=== PATIENT | male | born 1960 | race Two or more races ===

== ENCOUNTER 2020-02-09 11:51 | Emergency (ER) | payer OTHER, SELFPAY ==
[2020-02-09] VITALS (7 sets, daily range): BP systolic 136–192; BP diastolic 55–112; PULSE 66–85; RESP 15–20; TEMP 36.8–38; O2SAT 94–99; BMI 46.3
--- NOTE | 2020-02-09 12:11 | ED.GENADULT ---
HPI - General Adult General Chief complaint: General Medical Stated complaint: flu like symptoms Time Seen by Provider: 02/09/20 12:11 Source: patient Mode of arrival: ambulatory Limitations: no limitations History of Present Illness HPI narrative: patient presents to the ED for flu-like symptoms. Patient states body aches, slight cough, headache, and subjective fever. Patient states yesterday someone at work has similar symptoms and was tested positive for flu. Patient states the co-worker was negative for COVID virus. Patient himself denies any chest pain or shortness of breath. Patient denies any swelling of lower extremity, calf pain, or dizziness. Patient admits to chills and night sweats. Onset (ago): day(s) ( Yesterday) Related Data Previous Rx's Medication Instructions Recorded naproxen 500 mg PO BID PRN #20 tab 02/09/20 Allergies Allergy/AdvReac Type Severity Reaction Status Date / Time statins Allergy Unknown fatigue Uncoded 09/01/19 00:00 Review of Systems Review of Systems: patient admits to body aches, night sweats, subjective fever, chills, and headache. Patient denies any chest pain, shortness of breath, neck stiffness, rash, swelling of lower extremities, abdominal pain, nausea, vomiting, diarrhea, dysuria, hematuria, or flank pain. PMFSH Past Medical History Medical History (Updated 02/09/20 @ 18:50 by TOVA Baugh) Cholecystectomy planned HTN (hypertension) Surgical History (Updated 02/09/20 @ 12:31 by Alfreda Macias) Hx of cardiac cath Social History Social History Alcohol intake: never Smoking Status: Former smoker Smoked in Last 30 Days: No Use of substances other than those prescribed or required for medical reasons: No Advance Directives: No Advance Directives Information Provided: No Physical Exam Vital Signs: Vital Signs: Vital Signs Temp Pulse Resp BP Pulse Ox 02/09/20 18:00 98.3 F 66 15 136/63 95 02/09/20 16:53 98.8 F 69 16 139/55 L 95 02/09/20 16:10 99.5 F 70 20 160/58 H 96 02/09/20 15:15 78 163/63 H 02/09/20 15:10 100.4 F 78 19 163/63 H 99 02/09/20 13:29 99.8 F 81 18 192/87 H 94 02/09/20 12:27 100.0 F 85 20 152/112 H 95 Body Mass Index 46.3 Const: General: cooperative, healthy appearing, comfortable, no acute distress and well developed Orientation/consciousness: oriented to person, oriented to place, oriented to time and patient oriented x3 HENMT: Head: Yes normal to inspection Throat: Yes posterior oropharynx normal, Yes tonsils normal and Yes uvula midline Eyes: General: appearance normal, both eyes and all related structures Neck: Neck: Yes normal visual inspection, Yes full ROM, Yes no lymphadenopathy, Yes no meningeal signs, No lymphadenopathy, No positive Brudzinski's sign and No positive Kernig's sign Chest: Chest palpation & inspection: normal inspection of the chest and normal palpation of entire chest wall Resp: Effort & Inspection: normal respiratory effort, no audible wheezes and no cough Auscultation: clear to auscultation bilaterally, no crackles, no rales, no rhonchi and no wheezes Cardio: Jugular venous distension: no JVD Heart sounds: S1 normal heart sound present and S2 normal heart sound present GI: Inspection: Yes normal to inspection Palpation (GI): Soft to palpation, not firm, nontender, no guarding, not rigid and hepatosplenomegaly present Auscultation: normal bowel sounds Skin: General skin exam: no rashes or lesions noted Neuro: General: oriented to person, oriented to place, oriented to time, patient oriented x3, gait normal, no meningeal signs and CN's II-XI intact bilaterally Cranial nerves: Yes CN's II-XII intact bilaterally Extrem: Other: Lower extremities negative for any swelling, pitting edema, or calf tenderness. Course Course Course Narrative: history and physical exam indicate viral syndrome. Patient not in any distress. Patient will be swabbed for the flu virus and COVID-19. Patient also will have chest x-ray to check for pneumonia. Patient is hypertensive most likely due to body aches, will give pain medication and reassess blood pressure. Presently no labs indicated. Reevaluation(s) Reevaluation #1: Patient is still hypertensive with systolic of 204 on monitor. Due to this patient will have lab work and medication to control blood pressure. Patient will have to be ruled out for hypertensive emergency. Time: 13:55 Reevaluation #2: Will send for Head CT Time: 14:23 Reevaluation #3: patient feels better. Troponin did not increased by 50%. Patient is not in hypertensive emergency. Patient will be given days off. Patient educated on self-isolation from COVID-19 virus. Patient blood pressure improved. recent influenza swab negative chest x-ray negative for pneumonia. head CT is normal Time: 18:47 Medical Decision Making MDM Narrative Medical decision making narrative: viral syndrome. COVID swab negative. hypertension) Lab Data Result diagrams: 02/09/20 14:32 02/09/20 14:32 Labs: Lab Results 02/09/20 02/09/20 02/09/20 Range/Units 13:34 14:32 14:32 WBC 5.7 (4.8-10.8) X10*3/uL RBC 4.40 L (4.60-5.80) X10*6/uL Hgb 12.8 L (14.0-18.0) g/dl Hct 39.3 L (42-52) % MCV 89.3 (80-98) fL MCH 29.1 (27.0-33.0) pg MCHC 32.6 (31.0-36.0) g/dl RDW 13.5 (11.0-16.0) % Plt Count 214 (160-400) X10*3/uL MPV 9.7 (9.4-12.4) fL Immature Gran % (Auto) 0.7 H (0.0-0.4) % Neut % (Auto) 70.3 (45-73) % Lymph % (Auto) 12.7 L (20-40) % Sutter % (Auto) 15.2 H (2-11) % Eos % (Auto) 0.9 (0-4) % Baso % (Auto) 0.2 (0-2) % Lymph # (Auto) 0.7 L (1.2-4.9) X10*3/uL Sutter # (Auto) 0.9 (0.1-1.2) X10*3/uL Eos # (Auto) 0.1 (0.0-0.4) X10*3/uL Baso # (Auto) 0.0 (0.0-0.2) X10*3/uL Abs Immat Gran (auto) 0.04 H (0.00-0.03) X10*3/uL Absolute Neuts (auto) 4.0 (2.0-8.3) X10*3/uL Absolute Nucleated RBC 0.000 (0.0-0.012) X10*3/uL Nucleated RBC % (auto) 0.0 (0.0-0.2) /100WBC PT 13.3 H (10.8-13.0) SEC INR 1.1 (0.9-1.1) APTT 34.8 (24.1-38.0) SEC Sodium (135-145) mmol/L Potassium (3.3-5.1) mmol/l Chloride (96-108) mmol/L Carbon Dioxide (22-29) mmol/L Anion Gap (12-20) BUN (9-16) mg/dL Creatinine (0.5-1.4) mg/dL Estim Creat Clear Calc Estimated GFR Random Glucose (60-115) mg/dL Calcium (8.4-10.2) mg/dL Total Bilirubin (0.0-1.0) mg/dL AST (5-37) U/L ALT (0-40) U/L Alkaline Phosphatase (39-117) U/L Troponin I High Sens (<3.5-35.0) ng/L Total Protein (6.5-8.0) g/dL Albumin (3.5-5.0) g/dL Influenza Type A (PCR) NEGATIVE (Negative) Influenza Type B (PCR) NEGATIVE (Negative) Influenza A & B Note See Note RSV RNA Qual (PCR) NEGATIVE (Negative) 02/09/20 02/09/20 02/09/20 Range/Units 14:32 14:32 16:51 WBC (4.8-10.8) X10*3/uL RBC (4.60-5.80) X10*6/uL Hgb (14.0-18.0) g/dl Hct (42-52) % MCV (80-98) fL MCH (27.0-33.0) pg MCHC (31.0-36.0) g/dl RDW (11.0-16.0) % Plt Count (160-400) X10*3/uL MPV (9.4-12.4) fL Immature Gran % (Auto) (0.0-0.4) % Neut % (Auto) (45-73) % Lymph % (Auto) (20-40) % Sutter % (Auto) (2-11) % Eos % (Auto) (0-4) % Baso % (Auto) (0-2) % Lymph # (Auto) (1.2-4.9) X10*3/uL Sutter # (Auto) (0.1-1.2) X10*3/uL Eos # (Auto) (0.0-0.4) X10*3/uL Baso # (Auto) (0.0-0.2) X10*3/uL Abs Immat Gran (auto) (0.00-0.03) X10*3/uL Absolute Neuts (auto) (2.0-8.3) X10*3/uL Absolute Nucleated RBC (0.0-0.012) X10*3/uL Nucleated RBC % (auto) (0.0-0.2) /100WBC PT (10.8-13.0) SEC INR (0.9-1.1) APTT (24.1-38.0) SEC Sodium 143 (135-145) mmol/L Potassium 3.8 (3.3-5.1) mmol/l Chloride 102 (96-108) mmol/L Carbon Dioxide 32 H (22-29) mmol/L Anion Gap 13 (12-20) BUN 8 L (9-16) mg/dL Creatinine 0.80 (0.5-1.4) mg/dL Estim Creat Clear Calc 118.8 Estimated GFR > 60 Random Glucose 90 (60-115) mg/dL Calcium 9.1 (8.4-10.2) mg/dL Total Bilirubin 0.5 (0.0-1.0) mg/dL AST 30 (5-37) U/L ALT 28 (0-40) U/L Alkaline Phosphatase 63 (39-117) U/L Troponin I High Sens 11.6 12.8 (<3.5-35.0) ng/L Total Protein 7.2 (6.5-8.0) g/dL Albumin 4.3 (3.5-5.0) g/dL Influenza Type A (PCR) (Negative) Influenza Type B (PCR) (Negative) Influenza A & B Note RSV RNA Qual (PCR) (Negative) ECG Data Interpretation: normal sinus rhythm. Ventricular rate 74. OK interval 166. No STEMI Discharge Plan Discharge Clinical Impression: Acute viral syndrome Patient Disposition: Home, Self-Care Instructions: Viral Syndrome (ED) Additional Instructions: return to the ED for any chest pain, shortness of breath, weakness, headache, dizziness, slurred speech, paralysis of extremities, intractable fever/ chills, or any other concerning symptoms. Please follow-up with PCP. recommend 14 days self-isolation if Covid swab is positive Prescriptions: New naproxen 500 mg tablet 500 mg PO BID PRN (Reason: pain) Qty: 20 RF: 0 Stand Alone Forms: Work/School Release Interventions: ED Discharge Assessment Last Done: 02/09/20 19:11 Discharge Date/Time: 02/09/20 19:25
--- NOTE | 2020-02-09 13:00 | XR_ITS ---
EXAMINATION: XR CHEST CLINICAL INFORMATION: Flulike symptoms. Possible pneumonia COMPARISON: Chest radiographs 02/03/2019 TECHNIQUE: Portable upright AP view of the chest was obtained. FINDINGS: There is enlarged cardiopericardial silhouette similar to prior study 02/03/2019. The vascularity is normal. There is no lobar or segmental airspace consolidation or definite groundglass opacity. No effusion. The hilar and mediastinal contours are unremarkable. No acute bony abnormality. There is probable intravascular stent overlying right axilla. Calcification left axillary node again seen. IMPRESSION: No acute intrathoracic disease.
[2020-02-09] MEDS: Ketorolac Tromethamine 30 MG/ML VIAL IM (13:33)
--- NOTE | 2020-02-09 13:50 | ECG_ITS ---
Test Reason : GENERAL Blood Pressure : / mmHG Vent. Rate : 074 BPM Atrial Rate : 074 BPM P-R Int : 166 ms QRS Dur : 102 ms QT Int : 384 ms P-R-T Axes : 052 063 063 degrees QTc Int : 426 ms Normal sinus rhythm Normal ECG When compared with ECG of 16-SEP-2017 22:06, No significant change was found Referred By: Magdy Rodríguez Electronically Signed By:PHILLIP TANG MD
[2020-02-09 14:14] LABS: Influenza A PCR NEGATIVE (Negative); Influenza B PCR NEGATIVE (Negative)
[2020-02-09 14:16] LABS: Resp Syncy Virus RNA Qual PCR NEGATIVE (Negative)
--- NOTE | 2020-02-09 14:23 | CT_ITS ---
EXAMINATION: CT HEAD WITHOUT CONTRAST CLINICAL INFORMATION: Hypertension COMPARISON: None TECHNIQUE: Contiguous axial imaging was performed from the skull base to vertex without intravenous administration of contrast. This CT examination was performed using dose optimization techniques as appropriate, variously including the following: *Automated exposure control *Adjustment of mA and/or kV according to patient size (this includes techniques or standardized protocols for targeted exams where dose is matched to indication/reason for exam; i.e. extremities or head) *Use of iterative reconstruction technique DLP: 769 mGy-cm FINDINGS: There is no evidence of acute intracranial hemorrhage or territorial infarction. No abnormal mass effect or midline shift is seen. Robles to white matter differentiation is well preserved. No extra-axial fluid collections are identified. The ventricles are normal in size. There is no abnormal attenuation within the brain parenchyma. The osseous structures and soft tissues are normal. There is a small polyp or cyst in the sphenoid sinus. The mastoid air cells and visualized portions of the paranasal sinuses are otherwise clear. IMPRESSION: Unremarkable exam.
[2020-02-09 14:39] LABS: MANUAL DIFF FLAG NO
[2020-02-09 14:45] LABS: Basophils Percent Auto 0.2 % (0-2); Eosinophils Absolute Auto 0.1 X10*3/uL (0.0-0.4); Eosinophils Percent Auto 0.9 % (0-4); Hematocrit 39.3 % (42-52); Hemoglobin 12.8 g/dl (14.0-18.0); Imm Gran Abs Auto 0.04 X10*3/uL (0.00-0.03); Imm Gran Pct Auto 0.7 % (0.0-0.4); Lymphocytes Absolute Auto 0.7 X10*3/uL (1.2-4.9); Lymphocytes Percent Auto 12.7 % (20-40); Mean Corpuscular HGB Conc 32.6 g/dl (31.0-36.0); Mean Corpuscular Hemoglobin 29.1 pg (27.0-33.0); Mean Corpuscular Volume 89.3 fL (80-98); Mean Platelet Volume 9.7 fL (9.4-12.4); Monocytes Absolute Auto 0.9 X10*3/uL (0.1-1.2); Monocytes Percent Auto 15.2 % (2-11); Neutrophils Percent Auto 70.3 % (45-73); Platelet Count 214 X10*3/uL (160-400); Red Cell Distribution Width 13.5 % (11.0-16.0); White Blood Count 5.7 X10*3/uL (4.8-10.8)
[2020-02-09 15:06] LABS: INTERNATIONAL NORM RATIO 1.1 (0.9-1.1); Prothrombin Time 13.3 SEC (10.8-13.0)
[2020-02-09 15:08] LABS: Partial Thromboplastin Time 34.8 SEC (24.1-38.0)
[2020-02-09 15:13] LABS: Alanine Aminotransferase 28 U/L (0-40); Albumin Level 4.3 g/dL (3.5-5.0); Alkaline Phosphatase 63 U/L (39-117); Anion Gap 13 (12-20); Aspartate Amino Transferase 30 U/L (5-37); Bilirubin Total 0.5 mg/dL (0.0-1.0); Blood Urea Nitrogen 8 mg/dL (9-16); Calcium 9.1 mg/dL (8.4-10.2); Carbon Dioxide 32 mmol/L (22-29); Chloride 102 mmol/L (96-108); Creatinine Clr Calc Pharmacy 118.8; Estimated Glomerular Filt Rate > 60; Glucose Random 90 mg/dL (60-115); Potassium 3.8 mmol/l (3.3-5.1); Sodium 143 mmol/L (135-145); Total Protein 7.2 g/dL (6.5-8.0)
[2020-02-09] MEDS: Acetaminophen 325 MG TABLET 650 MG PO (15:15)
[2020-02-09] MEDS: cloNIDine HCL 0.2 MG TABLET PO (15:15)
[2020-02-09 15:20] LABS: Troponin-I High Sensitivity 11.6 ng/L (<3.5-35.0)
--- NOTE | 2020-02-09 15:24 | PC.NURSE ---
Taken for CT
[2020-02-09 17:34] LABS: Troponin-I High Sensitivity 12.8 ng/L (<3.5-35.0)
== END 2020-02-09 19:25 | disposition home or self-care (01) ==
PROVIDERS: Physician Assistant; Emergency Provider Emergency Medicine
DX: B34.9 Viral infection, unspecified (principal); Z20.828 Contact with and (suspected) exposure to other viral communicable diseases; R50.9 Fever, unspecified; I10 Essential (primary) hypertension
CPT/HCPCS: 36415; 70450; 71045; 80053; 84484; 85025; 85610; 85730; 87631; 87635; 93005; 96372; 99284; J1885

== ENCOUNTER 2020-02-23 10:14 | Outpatient (REF) | payer OTHER, SELFPAY | END 2020-02-23 10:15 | disposition home or self-care (01) | LOC: HO.LAB 10:14 | PROVIDERS: Visit Provider Internal Medicine | DX: Z20.828 Contact with and (suspected) exposure to other viral communicable diseases (principal) | CPT/HCPCS: U0003 ==

== ENCOUNTER 2020-03-15 09:41 | Outpatient (REF) | payer OTHER, SELFPAY | END 2020-03-15 09:42 | disposition home or self-care (01) | LOC: HO.LAB 09:41 | PROVIDERS: Visit Provider Internal Medicine | DX: Z20.828 Contact with and (suspected) exposure to other viral communicable diseases (principal) | CPT/HCPCS: C9803; U0003 ==

== ENCOUNTER 2020-03-29 08:15 | Outpatient (REF) | payer OTHER, SELFPAY ==
[2020-03-29 08:39] LABS: MANUAL DIFF FLAG NO
[2020-03-29 08:44] LABS: Basophils Percent Auto 0.6 % (0-2); Eosinophils Absolute Auto 0.3 X10*3/uL (0.0-0.4); Eosinophils Percent Auto 5.9 % (0-4); Hematocrit 39.3 % (42-52); Hemoglobin 12.8 g/dl (14.0-18.0); Imm Gran Abs Auto 0.01 X10*3/uL (0.00-0.03); Imm Gran Pct Auto 0.2 % (0.0-0.4); Lymphocytes Absolute Auto 1.8 X10*3/uL (1.2-4.9); Lymphocytes Percent Auto 34.7 % (20-40); Mean Corpuscular HGB Conc 32.6 g/dl (31.0-36.0); Mean Corpuscular Hemoglobin 28.6 pg (27.0-33.0); Mean Corpuscular Volume 87.9 fL (80-98); Mean Platelet Volume 9.8 fL (9.4-12.4); Monocytes Absolute Auto 0.5 X10*3/uL (0.1-1.2); Monocytes Percent Auto 9.4 % (2-11); Neutrophils Absolute Auto 2.5 X10*3/uL (2.0-8.3); Neutrophils Percent Auto 49.2 % (45-73); Platelet Count 246 X10*3/uL (160-400); Red Blood Count 4.47 X10*6/uL (4.60-5.80); Red Cell Distribution Width 13.9 % (11.0-16.0); White Blood Count 5.1 X10*3/uL (4.8-10.8)
[2020-03-29 09:19] LABS: Anion Gap 13 (12-20); Blood Urea Nitrogen 18 mg/dL (9-16); Carbon Dioxide 32 mmol/L (22-29); Chloride 101 mmol/L (96-108); Cholesterol 204 mg/dL; Estimated Glomerular Filt Rate > 60; Glucose Random 106 mg/dL (60-115); HDL Cholesterol 56 mg/dL; LDL Cholesterol Calculated 126 mg/dl; Potassium 3.5 mmol/l (3.3-5.1); Sodium 142 mmol/L (135-145); Triglycerides 110 mg/dL
[2020-03-29 11:40] LABS: Reflex LDLD? No
== END 2020-03-29 08:16 | disposition home or self-care (01) ==
LOC: HO.LAB 08:15
PROVIDERS: PCP Nurse Practitioner Family; Visit Provider Nurse Practitioner Family
DX: I10 Essential (primary) hypertension (principal)
CPT/HCPCS: 36415; 80048; 80061; 85025

== ENCOUNTER 2020-03-31 11:38 | Outpatient (REF) | payer OTHER, SELFPAY ==
--- NOTE | 2020-03-31 11:48 | XR_ITS ---
EXAMINATION: XR SHOULDER, LEFT CLINICAL INFORMATION: Left shoulder pain COMPARISON: CXR from 02/03/2019 and 02/09/2020 TECHNIQUE: AP external rotation, Grashey, scapular Y, and axillary views of the left shoulder. FINDINGS: Moderate osteoarthritis of the acromioclavicular joint. Bones have normal alignment at the shoulder. The humeral head is well-positioned over the intact glenoid. The glenohumeral joint space is well-preserved. No evidence of calcific tendinopathy at the shoulder. There is an old calcification (possibly calcified lymph node) of the left axilla. The visualized left upper lung is normal. XR/XR shoulder LT min 2V IMPRESSION: * Moderate osteoarthritis of the acromioclavicular joint. * The glenohumeral joint has a normal appearance. No acute abnormality. No fracture or malalignment.
== END 2020-03-31 11:39 | disposition home or self-care (01) ==
LOC: HO.XRAY 11:38
PROVIDERS: PCP Nurse Practitioner Family; Visit Provider Nurse Practitioner Family
DX: M25.512 Pain in left shoulder (principal)
CPT/HCPCS: 73030

== ENCOUNTER → 2020-05-19 08:53 | Outpatient (BNVA) | payer OTHER, SELFPAY | PROVIDERS: PCP Nurse Practitioner Family; Visit Provider Internal Medicine | DX: I10 Essential (primary) hypertension (principal); I77.1 Stricture of artery | CPT/HCPCS: 99212 ==

== ENCOUNTER → 2020-06-03 07:22 | Outpatient (REF) | payer OTHER, SELFPAY ==
--- NOTE | 2020-06-03 07:29 | CA_ITS ---
Transthoracic Echocardiogram Patient (Last, First, Middle): Uriel Elias A Gender: Male Date of : 1960 Age: 59 Procedure Date: 06/03/2020 Procedure Type: Transthoracic Echocardiogram Location: OP Height: 162.56 cm Weight: 125.19 kg BSA: 2.24 m2 Heart Rate: bpm BP: 160 / 64 mmHg Painter Ordnance: ARELI Referring MD: Omero Cruz MD Porter Baggage: Eren Paez MD Symptoms: HTN ASHD Study Quality: Technically Difficult ECG Rhythm: Sinus Conclusions: - 1. Normal LV systolic function with moderate LVH with impaired relaxation filling pattern 2. Mildly dilated left atrium 3. Normal cardiac valvular Doppler 4. No gross pericardial effusion Findings Left Ventricle Normal left ventricular size and systolic function. There is moderately increased left ventricular wall thickness. The visually estimated ejection fraction is between 60-65%. Regional wall motion abnormalities can not be excluded due to suboptimal endocardial definition. Spectral Doppler is indicative of an impaired relaxation filling pattern. E/E prime ratio is between 8 and 15 consistent with indeterminate filling pressures. Right Ventricle The right ventricle was not well visualized. Atria The left atrium is mildly dilated. Interatrial shunt cannot be excluded. The right atrium was not well visualized. Aortic Valve The aortic valve was not well visualized. There is no aortic valve stenosis. There is no aortic valve regurgitation. Mitral Valve Likely normal mitral valve structure and function. There is trace mitral valve regurgitation. There is no mitral valve stenosis. Pulmonic Valve The pulmonic valve was not well visualized. Tricuspid Valve The tricuspid valve was not well visualized. Tricuspid regurgitation envelope is inadequate for calculation of right ventricular systolic pressure. Great Vessels The aorta was not well visualized. The pulmonary artery was not well visualized. Venous The inferior vena cava is normal in size and collapses greater than 50% with inspiration. Pericardium/Pleural There is no evidence of pericardial effusion. Prior Study Comparison Changes noted compared to prior study dated: 04/20/2019. LVH is more pronounced Measurements M-Mode Liner Measurements Normals - Women/Men AOV Cusps: 2.20 1.5-2.6 cm/m2 2D Linear Measurements IVSd: 1.67 0.6-0.9/0.6-1.0 cm LVIDd: 4.42 3.9-5.3/4.2-5.9 cm LVIDd Index: 1.97 2.4-3.2/2.2-3.1 cm/m2 LVIDs: 2.52 2.0-3.6 cm LVPWd: 1.47 0.7-1.1 cm Ao Root: 3.10 2.1-3.5 cm LA Diam: 4.00 2.7-3.8/3.0-4.0 cm LAIDs Index: 1.79 1.5-2.3 cm/m2 LV Mass: 359.56 67-162/88-224 g LV Mass Index: 160.52 43-95/49-115 g/m2 LVOT Diam: 2.00 3.0+(-)1.3 cm 2D Systolic Function EF 4C: 64.10 >55% EF 2C: 57.30 >55% EF BiP: 62.00 >55% Mitral Valve MV Pk E: 0.78 MV PK A: 0.80 MV Decel Time: 275.00 E/A: 1.00 E'Lateral: 7.83 E'Medial: 6.53 E/E' Med: 12.00 E/E' Lat: 10.00 PHT: 80.00 MVA PHT: 2.75 Decel Dyer: 2.84 Aortic Valve AoV Pk Peterson: 1.24 AoV Pk Grad: 6.00 LVOT LVOT Pk Peterson: 0.90 LVOT Mn Peterson: 0.67 LVOT VTI: 0.21 LVOT Pk Grad: 3.00 LVOT Mn Grad: 2.00 LVOT Diam: 2.00 LVOT Area: 3.14 Diastolic Function MV Pk E: 0.78 MV Pk A: 0.80 E/A: 1.00 E'Medial: 6.53 E/E' Med: 12.00 E' Laterial: 7.83 E/E' Lat: 10.00 Great Vessels Aorta Ao Root-2D: 3.10 2.0-3.7 cm Ao Asc: 2.70 2.1-3.4 cm Ao Arch: 2.50 Pulmonary Valve PV Pk Peterson: 1.15 Peak PV Grad: 5.00 Updated in Other Vendor System with Status of Final Eren Paez MD electronically signed on 06/03/2020 4:54:17 PM with status of Final
[2020-06-03 09:02] LABS: Anion Gap 12 (12-20); Blood Urea Nitrogen 14 mg/dL (9-16); Calcium 8.6 mg/dL (8.4-10.2); Carbon Dioxide 30 mmol/L (22-29); Chloride 107 mmol/L (96-108); Estimated Glomerular Filt Rate > 60; Glucose Random 111 mg/dL (60-115); Potassium 3.6 mmol/L (3.3-5.1); Sodium 145 mmol/L (135-145)
== END ==
LOC: HO.CARD 07:22
PROVIDERS: PCP Internal Medicine; Visit Provider Internal Medicine
DX: I25.10 Atherosclerotic heart disease of native coronary artery without angina pectoris (principal); I10 Essential (primary) hypertension
CPT/HCPCS: 36415; 80048; 93306

== ENCOUNTER → 2020-06-07 08:41 | Outpatient (BNVA) | payer OTHER, SELFPAY | PROVIDERS: PCP Nurse Practitioner Family; Visit Provider Internal Medicine | DX: I51.7 Cardiomegaly (principal); I77.1 Stricture of artery; I10 Essential (primary) hypertension | CPT/HCPCS: 99212 ==

== ENCOUNTER 2021-01-19 09:28 | Outpatient (REF) | payer OTHER, SELFPAY ==
--- NOTE | ~2021-01-19 | XR_ITS ---
EXAMINATION: XR KNEE, BILATERAL XR CERVICAL SPINE CLINICAL INDICATION: Pain. COMPARISON: No films to compare. TECHNIQUE: 3 views right knee. 3 views left knee. 4 views cervical spine. RIGHT KNEE: 3 views of the right knee show moderate to marked degenerative changes. Significant loss of medial joint space with spurring at the joint margins. Patellofemoral spurring and spurring at the insertion of the quadriceps. Likely areas of healed osteochondral injury at the articulation of the femur with the tibia. The patella is slightly lateralized. There is no acute effusion seen. LEFT KNEE: 3 views of the left knee again show moderate to marked degenerative changes. Significant near-total joint space loss medially. Patellofemoral spurring and spurring at the insertion of the quadriceps. No significant effusion is seen. The patella is fairly well seated on the sunrise image. CERVICAL SPINE: 4 views of the cervical spine submitted. Suboptimal images. The lower cervical spine is not adequately imaged on the lateral study. There is degeneration here. There is fusion at C3 and C4 which is likely congenital. Degenerative changes with loss of disc height and osteophytic lipping at multiple levels. No convincing evidence for an acute compression injury. Likely degeneration in the articulating facets most noted at C2-C3. Likely degenerative change in the lower cervical regions with spurring in the endplates and loss of disc height. XR/XR knee LT 3V IMPRESSION: Moderate to marked degenerative changes within the knees. Described above. Moderate degeneration of the cervical spine. 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 Limited evaluation as described. If further evaluation is warranted recommendation is MRI.
--- NOTE | ~2021-01-19 | XR_ITS ---
EXAMINATION: XR KNEE, BILATERAL XR CERVICAL SPINE CLINICAL INDICATION: Pain. COMPARISON: No films to compare. TECHNIQUE: 3 views right knee. 3 views left knee. 4 views cervical spine. RIGHT KNEE: 3 views of the right knee show moderate to marked degenerative changes. Significant loss of medial joint space with spurring at the joint margins. Patellofemoral spurring and spurring at the insertion of the quadriceps. Likely areas of healed osteochondral injury at the articulation of the femur with the tibia. The patella is slightly lateralized. There is no acute effusion seen. LEFT KNEE: 3 views of the left knee again show moderate to marked degenerative changes. Significant near-total joint space loss medially. Patellofemoral spurring and spurring at the insertion of the quadriceps. No significant effusion is seen. The patella is fairly well seated on the sunrise image. CERVICAL SPINE: 4 views of the cervical spine submitted. Suboptimal images. The lower cervical spine is not adequately imaged on the lateral study. There is degeneration here. There is fusion at C3 and C4 which is likely congenital. Degenerative changes with loss of disc height and osteophytic lipping at multiple levels. No convincing evidence for an acute compression injury. Likely degeneration in the articulating facets most noted at C2-C3. Likely degenerative change in the lower cervical regions with spurring in the endplates and loss of disc height. XR/XR cervical spine 3V IMPRESSION: Moderate to marked degenerative changes within the knees. Described above. Moderate degeneration of the cervical spine. 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 Limited evaluation as described. If further evaluation is warranted recommendation is MRI.
--- NOTE | ~2021-01-19 | XR_ITS ---
EXAMINATION: XR LUMBOSACRAL SPINE CLINICAL INFORMATION: Low back pain COMPARISON: Previous x-ray August 2019 TECHNIQUE: Three views of the lumbosacral spine. FINDINGS: Bone alignment is normal. No fracture or dislocation is seen. There is multilevel degenerative disc disease. There is lower lumbar spine facet arthritis. There is arthritis at the sacroiliac joints. There is evidence of atherosclerotic disease. There are several calcifications projecting over the left kidney suggestive of stones. Largest measures 3 x 6 mm in the lower pole of the left kidney. XR/XR lumbar spine 2-3V IMPRESSION: Multilevel degenerative disc disease and facet arthritis. Degenerative changes at the sacroiliac joints. Probable left renal stones.
--- NOTE | ~2021-01-19 | XR_ITS ---
EXAMINATION: XR KNEE, BILATERAL XR CERVICAL SPINE CLINICAL INDICATION: Pain. COMPARISON: No films to compare. TECHNIQUE: 3 views right knee. 3 views left knee. 4 views cervical spine. RIGHT KNEE: 3 views of the right knee show moderate to marked degenerative changes. Significant loss of medial joint space with spurring at the joint margins. Patellofemoral spurring and spurring at the insertion of the quadriceps. Likely areas of healed osteochondral injury at the articulation of the femur with the tibia. The patella is slightly lateralized. There is no acute effusion seen. LEFT KNEE: 3 views of the left knee again show moderate to marked degenerative changes. Significant near-total joint space loss medially. Patellofemoral spurring and spurring at the insertion of the quadriceps. No significant effusion is seen. The patella is fairly well seated on the sunrise image. CERVICAL SPINE: 4 views of the cervical spine submitted. Suboptimal images. The lower cervical spine is not adequately imaged on the lateral study. There is degeneration here. There is fusion at C3 and C4 which is likely congenital. Degenerative changes with loss of disc height and osteophytic lipping at multiple levels. No convincing evidence for an acute compression injury. Likely degeneration in the articulating facets most noted at C2-C3. Likely degenerative change in the lower cervical regions with spurring in the endplates and loss of disc height. XR/XR knee RT 3V IMPRESSION: Moderate to marked degenerative changes within the knees. Described above. Moderate degeneration of the cervical spine. 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 Limited evaluation as described. If further evaluation is warranted recommendation is MRI.
[2021-01-19 09:58] LABS: Hematocrit 41.4 % (42-52); Hemoglobin 13.5 g/dl (14.0-18.0); Mean Corpuscular HGB Conc 32.6 g/dl (31.0-36.0); Mean Corpuscular Hemoglobin 28.9 pg (27.0-33.0); Mean Corpuscular Volume 88.7 fL (80-98); Platelet Count 264 X10*3/uL (160-400); Red Blood Count 4.67 X10*6/uL (4.60-5.80); Red Cell Distribution Width 13.4 % (11.0-16.0); White Blood Count 8.3 X10*3/uL (4.8-10.8)
[2021-01-19 10:51] LABS: Alanine Aminotransferase 42 U/L (0-40); Albumin Level 4.3 g/dL (3.5-5.0); Alkaline Phosphatase 64 U/L (39-117); Anion Gap 17 (12-20); Aspartate Amino Transferase 32 U/L (5-37); Bilirubin Total 0.5 mg/dL (0.0-1.0); Blood Urea Nitrogen 14 mg/dL (9-16); Calcium 9.9 mg/dL (8.4-10.2); Carbon Dioxide 29 mmol/L (22-29); Chloride 103 mmol/L (96-108); Cholesterol 237 mg/dL; Estimated Glomerular Filt Rate > 60; Glucose Fasting 126 mg/dL (60-99); HDL Cholesterol 54 mg/dL; LDL Cholesterol Calculated 151 mg/dl; Sodium 145 mmol/L (135-145); Total Protein 7.4 g/dL (6.5-8.0); Triglycerides 161 mg/dL
[2021-01-19 11:13] LABS: TSH reflex Free T4 1.86 uIU/mL (0.32-4.0)
[2021-01-19 12:11] LABS: Microalbum/Creatinine Ratio Ur 167.8 ug/mg cr
== END 2021-01-19 09:29 | disposition home or self-care (01) ==
LOC: HO.XRAY 09:28
PROVIDERS: PCP Physician Assistant; Visit Provider Physician Assistant
DX: M54.2 Cervicalgia (principal); M54.5 Low back pain; G47.33 Obstructive sleep apnea (adult) (pediatric); I10 Essential (primary) hypertension; Z12.5 Encounter for screening for malignant neoplasm of prostate
CPT/HCPCS: 36415; 72040; 72100; 73562; 80053; 80061; 82043; 84153; 84443; 85027

== ENCOUNTER → 2021-01-26 13:35 | Outpatient (BNVA) | payer OTHER, SELFPAY | PROVIDERS: PCP Physician Assistant; Referring Provider Physician Assistant; Visit Provider Physician Assistant Surgical ==

== ENCOUNTER → 2021-02-13 08:11 | Outpatient (BNVA) | payer OTHER, SELFPAY | PROVIDERS: PCP Physician Assistant; Visit Provider Surgery ==

== ENCOUNTER 2021-02-14 10:11 | Outpatient (REF) | payer OTHER, SELFPAY ==
--- NOTE | ~2021-02-14 | XR_ITS ---
EXAMINATION: XR CHEST CLINICAL INFORMATION: E78.00 - Pure hypercholesterolemia, unspecified COMPARISON: Chest radiographs 02/09/2020, 02/03/2019 TECHNIQUE: 2 views of the chest were obtained. FINDINGS: Radiographs are mildly underpenetrated. There is enlarged cardiopericardial silhouette similar to prior study. There is mild fullness of the central vasculature. There is no airspace consolidation or currently lines. No pleural effusion. The costophrenic sulci are clear. The hilar and mediastinal contours are unremarkable. There are multilevel degenerative changes thoracic spine. XR/XR chest 2V IMPRESSION: Chronic enlarged cardiopericardial silhouette. Mild fullness central vasculature. No interstitial edema, infiltrate, or effusion.
--- NOTE | 2021-02-14 10:31 | ECG_ITS ---
Test Reason : hypercholest. Blood Pressure : / mmHG Vent. Rate : 081 BPM Atrial Rate : 081 BPM P-R Int : 172 ms QRS Dur : 082 ms QT Int : 366 ms P-R-T Axes : 062 057 148 degrees QTc Int : 425 ms Normal sinus rhythm T wave abnormality, consider inferolateral ischemia Abnormal ECG When compared with ECG of 09-FEB-2020 15:41, QRS duration has decreased Non-specific change in ST segment in Anterior leads T wave inversion now evident in Inferior leads T wave inversion now evident in Lateral leads Referred By: Jorge Salas Electronically Signed By:PHILLIP TANG MD
[2021-02-14 10:32] LABS: MANUAL DIFF FLAG NO
[2021-02-14 10:45] LABS: Basophils Percent Auto 0.4 % (0-2); Eosinophils Absolute Auto 0.2 X10*3/uL (0.0-0.4); Eosinophils Percent Auto 3.4 % (0-4); Hematocrit 41.7 % (42-52); Hemoglobin 13.7 g/dl (14.0-18.0); Imm Gran Abs Auto 0.03 X10*3/uL (0.00-0.03); Imm Gran Pct Auto 0.6 % (0.0-0.4); Lymphocytes Absolute Auto 1.3 X10*3/uL (1.2-4.9); Lymphocytes Percent Auto 26.6 % (20-40); Mean Corpuscular HGB Conc 32.9 g/dl (31.0-36.0); Mean Corpuscular Hemoglobin 29.6 pg (27.0-33.0); Mean Corpuscular Volume 90.1 fL (80-98); Mean Platelet Volume 9.7 fL (9.4-12.4); Monocytes Absolute Auto 0.3 X10*3/uL (0.1-1.2); Monocytes Percent Auto 6.8 % (2-11); Neutrophils Absolute Auto 3.1 X10*3/uL (2.0-8.3); Neutrophils Percent Auto 62.2 % (45-73); Platelet Count 246 X10*3/uL (160-400); Red Blood Count 4.63 X10*6/uL (4.60-5.80); Red Cell Distribution Width 13.5 % (11.0-16.0)
[2021-02-14 10:59] LABS: Estimated Average Glucose 123 mg/dL; Hemoglobin A1C 152.3407 umol/L; Hemoglobin A1c % 5.9 %
[2021-02-14 11:12] LABS: Alanine Aminotransferase 29 U/L (0-40); Albumin Level 4.3 g/dL (3.5-5.0); Alkaline Phosphatase 58 U/L (39-117); Anion Gap 12 (12-20); Aspartate Amino Transferase 26 U/L (5-37); Bilirubin Total 0.8 mg/dL (0.0-1.0); Blood Urea Nitrogen 12 mg/dL (9-16); Calcium 9.4 mg/dL (8.4-10.2); Carbon Dioxide 34 mmol/L (22-29); Chloride 104 mmol/L (96-108); Cholesterol 232 mg/dL; Estimated Glomerular Filt Rate > 60; Glucose Random 127 mg/dL (60-115); HDL Cholesterol 51 mg/dL; Iron 103 mcg/dL (45-160); LDL Cholesterol Calculated 134 mg/dl; Percent Iron Saturation 27 % (15-50); Potassium 4.2 mmol/L (3.3-5.1); Sodium 146 mmol/L (135-145); Total Iron Binding Capacity 385 mcg/dL (228-428); Total Protein 7.3 g/dL (6.5-8.0); Triglycerides 235 mg/dL; Unsaturated Iron Binding 282 ug/dL
[2021-02-14 11:38] LABS: Ferritin 83 ng/mL (20-250); Insulin 23 uU/mL (2-29); TSH reflex Free T4 1.19 uIU/mL (0.32-4.0); Vitamin D 25-OH Total 14.7 ng/mL (>30)
[2021-02-14 11:44] LABS: Folate 13.3 ng/mL (> or = 4.0); Vitamin B12 354 pg/mL (200-900)
[2021-02-16 01:33] LABS: Calcium (PTHI) 9.4 mg/dL (8.6-10.3); PTHI 103 pg/mL (14-64)
[2021-02-17 16:31] LABS: Zinc 85 mcg/dL (60-130)
[2021-02-18 11:31] LABS: Vitamin B1 12 nmol/L (8-30)
[2021-02-20 12:03] LABS: Vitamin A 66 mcg/dL (38-98)
== END 2021-02-14 10:12 | disposition home or self-care (01) ==
LOC: HO.LAB 10:11
PROVIDERS: PCP Physician Assistant; Visit Provider Surgery
DX: E78.00 Pure hypercholesterolemia, unspecified (principal); E66.01 Morbid (severe) obesity due to excess calories; I10 Essential (primary) hypertension; G47.30 Sleep apnea, unspecified; I51.7 Cardiomegaly; I77.1 Stricture of artery; K21.9 Gastro-esophageal reflux disease without esophagitis
CPT/HCPCS: 36415; 71046; 80053; 80061; 82306; 82607; 82728; 82746; 83036; 83525; 83540; 83970; 84425; 84443; 84590; 84630; 85025; 86140; 93005

== ENCOUNTER 2021-02-15 10:57 | Outpatient (REF) | payer OTHER, SELFPAY ==
[2021-02-17 10:09] LABS: H Pylori Breath Test Negative (Negative)
== END 2021-02-15 10:58 | disposition home or self-care (01) ==
LOC: HO.LNP 10:57
PROVIDERS: Surgery; PCP Physician Assistant; Referring Provider Physician Assistant; Visit Provider Physician Assistant
DX: Z11.0 Encounter for screening for intestinal infectious diseases (principal)
CPT/HCPCS: 83013; 99211

== ENCOUNTER → 2021-02-27 08:06 | Outpatient (BNVA) | payer OTHER, SELFPAY | PROVIDERS: PCP Physician Assistant; Visit Provider Dietitian, Registered | DX: E66.01 Morbid (severe) obesity due to excess calories (principal) | CPT/HCPCS: 97802 ==

== ENCOUNTER → 2021-03-14 07:52 | Outpatient (BNVA) | payer OTHER, SELFPAY | PROVIDERS: PCP Physician Assistant; Referring Provider Physician Assistant; Visit Provider Internal Medicine | DX: I51.7 Cardiomegaly (principal); I77.1 Stricture of artery; I10 Essential (primary) hypertension | CPT/HCPCS: 93005; 99212 ==

== ENCOUNTER → 2021-03-20 14:19 | Outpatient (BNVA) | payer OTHER, SELFPAY | PROVIDERS: PCP Physician Assistant; Visit Provider Surgery ==

== ENCOUNTER 2021-03-21 08:55 | Outpatient (REF) | payer OTHER, SELFPAY ==
--- NOTE | ~2021-03-21 | US_ITS ---
EXAMINATION: US COMPLETE ABDOMEN WITH LIVER ELASTOGRAPHY CLINICAL INFORMATION: Obesity. Hypercholesterolemia. COMPARISON: CT abdomen and pelvis 02/03/2019 TECHNIQUE: Real-time imaging of the abdominal viscera. Noninvasive ultrasound liver fibrosis assessment is performed using Rai ElastPQ point quantification shear wave elastography (pSWE) with a C5-2 MHz transducer. Multiple elastography samples are obtained. FINDINGS: PANCREAS: Normal. The visualized pancreatic head and body are normal in appearance. The remainder of the pancreas is obscured from visualization by the overlying bowel gas. ABDOMINAL AORTA: The proximal, middle, and distal aortic segments are normal in caliber. INFERIOR VENA CAVA: Visualized portions are normal. LIVER: The liver demonstrates normal size and contour with increased echogenicity. No focal lesion or intrahepatic biliary duct dilatation. The right lobe measures 17.0 cm in length. The left lobe measures 13.2 cm in length. Portal flow is hepatopetal. Shear wave liver elastography median stiffness is 1.27 m/s (reference: Normal median stiffness is 1.3 m/s or less). IQR/median stiffness to assess sampling precision is 0.15 (reference: Good quality data set is IQR/median stiffness of 0.15 or less). GALLBLADDER: Normal. The gallbladder is physiologically distended without evidence of stones, sludge, polyps, wall thickening or pericholecystic fluid. COMMON BILE DUCT: Normal in caliber measuring 0.3 cm in diameter. RIGHT KIDNEY: Normal. No hydronephrosis. No renal calculi or focal parenchymal lesions. The kidney measures 12.9 cm in maximum dimension. LEFT KIDNEY: No hydronephrosis. No focal parenchymal lesions. The kidney measures 12.4 cm in maximum dimension.. There are echogenic stones seen. -Midpole stones measures 1.3 x 0.7 x 0.8 cm and 0.8 x 0.5 x 0.8 cm SPLEEN: Normal. The spleen measures 10.6 cm in maximum dimension. FREE FLUID: None. US/US abdomen comp w elastography IMPRESSION: 1. Mild hepatic steatosis without any focal lesion. 2. There are echogenic nonobstructive calculi in the mid pole of the left kidney. Both calculi were seen on the previous CT abdomen and pelvic exam 02/03/2019. 3. Liver Elastography: Median liver stiffness 1.27 m/s suggestive of high probability normal. REFERENCE: Society of Radiologists in Ultrasound Liver Stiffness Thresholds (2020): LIVER STIFFNESS THRESHOLDS: *Liver Stiffness equal or less than 1.3 m/s: High probability of being normal. *Liver Stiffness less than 1.7 m/s: In the absence of other known clinical signs, rules out compensated advanced chronic liver disease. *Liver Stiffness 1.7-2.1 m/s: Suggestive of compensated advanced chronic liver disease but need further test for confirmation. *Liver Stiffness over 2.1 m/s: Rules in compensated advanced chronic liver disease. *Liver Stiffness over 2.4 m/s: Suggestive of clinically significant portal hypertension. QUALITY OF DATA SET: *IQR/Median value equal or less than 0.15 implies a quality data set. *IQR/Median value over 0.15 implies a poor quality data set. SIGNIFICANT CHANGE FROM PRIOR EXAM: Significant change if liver stiffness measurement is 10% or greater from prior exam. OTHER CONSIDERATIONS: The stage of liver fibrosis may be overestimated in the setting of acute hepatitis, liver inflammation, elevated liver function tests, hepatic vascular congestion, obstructive cholestasis, non-fasting state, and infiltrative diseases such as amyloidosis and lymphoma. In some patients with NAFLD, the liver stiffness thresholds for compensated advanced chronic liver disease may be lower. In causes other than viral hepatitis and NAFLD, liver stiffness thresholds are not well established.
== END 2021-03-21 08:56 | disposition home or self-care (01) ==
LOC: HO.US 08:55
PROVIDERS: PCP Physician Assistant; Visit Provider Surgery
DX: E66.01 Morbid (severe) obesity due to excess calories (principal); G47.30 Sleep apnea, unspecified; I10 Essential (primary) hypertension; I51.7 Cardiomegaly; I77.1 Stricture of artery; K21.9 Gastro-esophageal reflux disease without esophagitis; E78.00 Pure hypercholesterolemia, unspecified
CPT/HCPCS: 76705; 76981

== ENCOUNTER 2021-03-22 08:54 | Outpatient (REF) | payer OTHER, SELFPAY ==
--- NOTE | ~2021-03-22 | FL_ITS ---
EXAMINATION: FL UPPER GI SERIES CLINICAL INFORMATION: Bariatric service evaluation. E78.00 - Pure hypercholesterolemia, unspecified COMPARISON: CT abdomen and pelvis 02/03/2019 TECHNIQUE: Upper GI series is performed using fluoroscopic evaluation in addition to multiple fluoroscopic spot views. The patient is imaged both upright and prone and using both thick and thin barium sulfate along with effervescent granules. Fluoroscopy time: 1.2 minutes DAP: 26.8 Gycm2 Fluoroscopic spot images: 20 FINDINGS: There is normal esophageal motility. There is no obstruction, stricture, or ulceration. There is small intermittent sliding hiatal hernia only seen during prone Valsalva maneuver. Borderline hernia also noted on CT 2019. There is gastroesophageal reflux to the level of the proximal thoracic esophagus only seen during the water siphon test. The stomach shows no thickened folds or ulcer crater or outlet obstruction. The duodenal bulb is pliable and without ulcer crater or scarring. The post bulbar duodenum the jejunal mucosal pattern are unremarkable. FL/FL upper GI w air IMPRESSION: 1. Small intermittent sliding hiatal hernia during prone Valsalva maneuver. 2. Gastroesophageal reflux during water siphon test to proximal thoracic esophagus.
== END 2021-03-22 08:55 | disposition home or self-care (01) ==
LOC: HO.XRAY 08:54
PROVIDERS: PCP Physician Assistant; Visit Provider Surgery
DX: E66.9 Obesity, unspecified (principal); E78.00 Pure hypercholesterolemia, unspecified
CPT/HCPCS: 74246

== ENCOUNTER → 2021-03-23 08:03 | Outpatient (BNVA) | payer OTHER, SELFPAY | PROVIDERS: Referring Provider Surgery; Visit Provider Dietitian, Registered ==

== ENCOUNTER → 2021-03-24 08:12 | Outpatient (BNVA) | payer OTHER, SELFPAY | PROVIDERS: PCP Nurse Practitioner Family; Visit Provider Dietitian, Registered | DX: E66.01 Morbid (severe) obesity due to excess calories (principal) | CPT/HCPCS: 97803 ==

== ENCOUNTER → 2021-04-04 08:31 | Outpatient (REF) | payer OTHER, SELFPAY | LOC: HO.CARD 08:31 | PROVIDERS: Visit Provider Surgery | DX: Z13.89 Encounter for screening for other disorder (principal) ==

== ENCOUNTER → 2021-04-18 07:52 | Outpatient (REF) | payer OTHER, SELFPAY ==
--- NOTE | ~2021-04-18 | NM_ITS ---
Myocardial perfusion study Indication: Abnormal EKG with inability to exercise with preoperative cardiovascular risk stratification Technique: The patient was brought in for a Lexiscan perfusion study on 04/18/2021. Patient performed low-level exercise and was injected 0.4 mg of Lexiscan intravenously. Within a minute of injection, 35 mCi of sestamibi was given intravenously. Images were obtained using the SPECT gamma camera interlaced with the gating device. Images were obtained in supine position. Resting perfusion study was performed on 04/19/2021. Patient was administered 35 mCi of sestamibi intravenously at rest. Images were then obtained in supine position. Images obtained with and without CT attenuation. Total DLP 188 mGy-cm. Images were processed with the software and compared side to side in short axis, horizontal long axis and vertical long axis views. Findings: The stress perfusion study showed non attenuated images show mildly reduced uptake in the basal inferior as well as mildly reduced uptake in the apex as well as the basal lateral wall of the LV myocardium. Remainder of the LV myocardium is normally perfused. Attenuation corrected images show mildly reduced uptake in the apex of the LV myocardium.. The gated study shows normal LV systolic function with visually estimated LVEF of greater than 55%. LV cavity is mildly dilated size. The gated study shows normal wall thickening and contraction of segments. Resting study shows improved uptake in the apex on both attenuated as well as non attenuated corrected images. Gating at rest reveals normal systolic wall motion with visually estimated ejection fraction at greater than 55%. The findings are consistent with small area of mild intensity apical ischemia. NM/NM rhonda perf SPECT rest & str Impression: 1. Myocardial perfusion imaging study shows mild intensity apical ischemia 2. Gated LVEF is greater than 55% 3. Transient ischemic dilatation present EKG is nondiagnostic for ischemia
--- NOTE | 2021-04-18 07:57 | CA_ITS ---
Acquisition Time: 2021-04-18 08:37:01 Total Exercise Time: 00:02:00 Test Indications: HYPERLIPIDEMIA, HTN Medications: SEE CHART Protocol: LEXISCAN Max HR: 090 BPM 56% of Pred: 160 BPM Max BP: 146/074 mmHG Max Work Load: 1.6 METS Pharmacological stress test with Lexiscan injection, while walking on treadmill, without anginal symptoms, without arrythmia, with normotensive response to injection, with nondiagnostic EKG for ischemia. Nuclear images pending. Test reviewed with Dr Abreu. Referred By: Jorge Salas Overread By: SELVIN PATE
== END ==
LOC: HO.CARD 07:52
PROVIDERS: Visit Provider Surgery
DX: R94.31 Abnormal electrocardiogram [ECG] [EKG] (principal); I25.9 Chronic ischemic heart disease, unspecified; E66.01 Morbid (severe) obesity due to excess calories; Z68.42 Body mass index [BMI] 45.0-49.9, adult
CPT/HCPCS: 78452; 93017; A9500; J0280; J2785

== ENCOUNTER → 2021-05-12 08:02 | Outpatient (BNVA) | payer OTHER, SELFPAY | PROVIDERS: PCP Nurse Practitioner Family; Visit Provider Surgery | DX: E66.01 Morbid (severe) obesity due to excess calories (principal) ==

== ENCOUNTER → 2021-05-29 08:14 | Outpatient (BNVA) | payer OTHER, SELFPAY | PROVIDERS: PCP Nurse Practitioner Family; Visit Provider Surgery ==

== ENCOUNTER → 2021-06-01 08:19 | Outpatient (BNVA) | payer OTHER, SELFPAY | PROVIDERS: PCP Nurse Practitioner Family; Referring Provider Physician Assistant; Visit Provider Surgery ==

== ENCOUNTER 2021-06-06 06:13 | Inpatient (IN) | payer OTHER, SELFPAY ==
[2021-05-29 15:30] VITALS: BMI 42.6
[2021-05-30 09:49] LABS: MANUAL DIFF FLAG NO
[2021-05-30 10:21] LABS: Basophils Percent Auto 0.2 % (0-2); Eosinophils Absolute Auto 0.1 X10*3/uL (0.0-0.4); Eosinophils Percent Auto 2.2 % (0-4); Hematocrit 39.8 % (42.0-52.0); Hemoglobin 13.5 g/dl (14.0-18.0); Imm Gran Abs Auto 0.01 X10*3/uL (0.00-0.03); Imm Gran Pct Auto 0.2 % (0.0-0.4); Lymphocytes Absolute Auto 1.2 X10*3/uL (1.2-4.9); Mean Corpuscular HGB Conc 33.9 g/dl (31.0-36.0); Mean Corpuscular Hemoglobin 29.5 pg (27.0-33.0); Mean Corpuscular Volume 86.9 fL (80.0-98.0); Mean Platelet Volume 10.7 fL (9.4-12.4); Monocytes Absolute Auto 0.3 X10*3/uL (0.1-1.2); Monocytes Percent Auto 6.1 % (2-11); Neutrophils Absolute Auto 3.3 x10*3/uL (2.0-8.3); Neutrophils Percent Auto 67.3 % (45-73); Platelet Count 227 X10*3/uL (160-400); Red Blood Count 4.58 X10*6/uL (4.60-5.80); Red Cell Distribution Width 13.2 % (11.0-16.0); White Blood Count 4.9 X10*3/uL (4.8-10.8)
[2021-05-30 10:31] LABS: INTERNATIONAL NORM RATIO 1.1 (0.9-1.1); Prothrombin Time 12.8 SEC (9.9-13.0)
[2021-05-30 10:34] LABS: Partial Thromboplastin Time 37.2 SEC (24.1-38.0)
[2021-05-30 10:47] LABS: Alanine Aminotransferase 18 U/L (0-40); Alkaline Phosphatase 60 U/L (39-117); Anion Gap 11 (12-20); Aspartate Amino Transferase 18 U/L (5-37); Blood Urea Nitrogen 15 mg/dL (9-16); Calcium 9.3 mg/dL (8.4-10.2); Carbon Dioxide 31 mmol/L (22-29); Chloride 105 mmol/L (96-108); Cholesterol 195 mg/dL; Creatinine Clr Calc Pharmacy 113.3; Estimated Glomerular Filt Rate > 60; Glucose Random 91 mg/dL (60-115); HDL Cholesterol 40 mg/dL; LDL Cholesterol Calculated 134 mg/dl; Potassium 4.2 mmol/L (3.3-5.1); Sodium 143 mmol/L (135-145); Total Protein 6.9 g/dL (6.5-8.0); Triglycerides 109 mg/dL
[2021-05-30 10:50] LABS: Estimated Average Glucose 100 mg/dL; Hemoglobin A1C 117.3587 umol/L; Hemoglobin A1c % 5.1 %
[2021-05-30 11:12] LABS: Insulin 9 uU/mL (2-29)
--- NOTE | 2021-06-02 23:18 | MHC.SHP ---
Pre-Procedural Eval Section A Date of Service: 06/02/21 The patient is an INPATIENT: Yes The History & Physical has been completed within 30 days and I have reviewed it.: Yes Section B Chief Complaint: obesity Relevant Family History (Specify if Yes): No Relevant Social History: None Present Medications: None Medical History: No relevant PMH History of Previous Operations: No relevant previous surgery Allergies: Allergies Allergy/AdvReac Type Severity Reaction Status Date / Time No Known Allergies Allergy Verified 05/31/21 10:05 Review of Systems Sugical H&P ROS: Negative: Constitution, Cardiovascular, Respiratory, Neurological, Psychiatric, Hem-Onc, Allergic/Immunologic, Gastrointestinal, Genitourinary, Musculoskeletal, Integumentary, Endocrine and Eyes/Ears/Nose/Throat Exam Surgical H&P Exam: Normal: HEENT, Normal: Heart, Normal: Lungs, Normal: Extremities, Normal: Abdomen, Normal: Skin and Normal: Neurological Plan Diagnosis/Plan: Unchanged I have reviewed the history and physical and performed a pertinent physical examination on my patient. No changes have occurred unless specified.
--- NOTE | 2021-06-05 12:21 | HO.ANESPROP2 ---
Documented by User: Rosa Nguyen NP 06/05/21 12:23 HPI - Anesthesia Eval Consult details Narrative: 60yo M for Gastrectomy Sleeve,EGD,poss diaphragmatic hernia,poss ventral hernia,poss open Cardiac cleared at low risk [facility] Active Problems Active Problems: All Active Problems (Updated 05/29/21 @ 15:29 by Sharron Mcgill RN) Uncontrolled hypertension (Acute) LVH (left ventricular hypertrophy) (Acute) PABLO (obstructive sleep apnea) (Acute) Lumbar spine painful on movement (Acute) Bilateral knee pain (Acute) Cervical spine pain (Acute) Obese (Acute) Abnormal EKG (Acute) Myocardial ischemia (Acute) Vitamin B12 deficiency (Acute) Vitamin D deficiency (Acute) Annual physical exam (Acute) Binge eating disorder (Acute) Binge-eating disorder, in full remission, moderate (Acute) DJD (degenerative joint disease) (Acute) GERD (gastroesophageal reflux disease) (Acute) Sleep apnea with use of continuous positive airway pressure (CPAP) (Acute) Morbid obesity (Acute) Subclavian artery stenosis, right (Acute) Hypertension (Acute) High cholesterol (Acute) Shoulder pain, left (Acute) Past Medical History Medical History Cardiomegaly Cholecystectomy planned COVID-19 vaccine series completed DJD (degenerative joint disease) GERD (gastroesophageal reflux disease) High cholesterol Hypertension Morbid obesity Shoulder pain, left Sleep apnea with use of continuous positive airway pressure (CPAP) Subclavian artery stenosis, right Family History Family History Father H/O ETOH abuse Hypertension Alzheimers disease Substance use disorder Mental health disorder Mother Medical history unknown Brother Hypertension Diabetes Surgical History Surgical History History of cholecystectomy History of umbilical hernia repair Hx of cardiac cath Hx of colonoscopy Social History Social History Housing: Apartment Are you a primary patient care technician to a significant other at home: No Do you presently have visiting nurse or other home services: No Alcohol intake: never Patient Tobacco Use Status: Former Tobacco user Quit Date: 20 yrs ago Tobacco use type: Cigarette e-Cigarette/Vaping Use: Never Used Second Hand Smoke Exposure: No Use of substances other than those prescribed or required for medical reasons: No Have you been hit, kicked, punched, or otherwise hurt by someone within the past year? If so, by whom?: No Are you DNR?: No Advance Directives: No Advance Directives Information Provided: No Advance Directives on File: No Recently lost weight without trying: No How much weight loss: 14-23 pounds Eating poorly because of decreased appetite: No Nutrition screen score: 2 Nutrition Risks: No Nutritional Risk Current occupational status: disabled Meds Allergies Allergy/AdvReac Type Severity Reaction Status Date / Time No Known Allergies Allergy Verified 06/06/21 06:43 Home Medications Medication Instructions Recorded Confirmed Last Taken Type cyanocobalamin (vitamin B-12) 1,000 mcg SUBLINGUAL DAILY 03/14/21 05/31/21 Unknown History 1,000 mcg sublingual tablet Exam Exam Date and Time: June 05, 2021 1221 Height,Weight and Vital Signs: Height 5 ft 4 in Weight 112.661 kg Pertinent Lab Results Pertinent Lab Results: Laboratory Tests 05/30/21 05/30/21 05/30/21 09:37 09:37 09:37 WBC 4.9 RBC 4.58 L Hgb 13.5 L Hct 39.8 L MCV 86.9 MCH 29.5 MCHC 33.9 RDW 13.2 Plt Count 227 MPV 10.7 Immature Gran % (Auto) 0.2 Neut % (Auto) 67.3 Lymph % (Auto) 24.0 [place] % (Auto) 6.1 Eos % (Auto) 2.2 Baso % (Auto) 0.2 Lymph # (Auto) 1.2 [place] # (Auto) 0.3 Eos # (Auto) 0.1 Baso # (Auto) 0.0 Abs Immat Gran (auto) 0.01 Absolute Neuts (auto) 3.3 Absolute Nucleated RBC 0.000 Nucleated RBC % (auto) 0.0 PT 12.8 INR 1.1 APTT 37.2 Sodium 143 Potassium 4.2 Chloride 105 Carbon Dioxide 31 H Anion Gap 11 L BUN 15 Creatinine 0.79 Estim Creat Clear Calc 113.3 Estimated GFR > 60 Random Glucose 91 Estimat Average Glucose Hemoglobin A1c % Insulin Level 9 Calcium 9.3 Total Bilirubin 1.0 AST 18 ALT 18 Alkaline Phosphatase 60 C-Reactive Protein 0.30 Total Protein 6.9 Albumin 4.0 Triglycerides 109 Cholesterol 195 LDL Cholesterol, Calc 134 HDL Cholesterol 40 D TSH 1.00 Blood Type Antibody Screen 05/30/21 05/30/21 09:37 09:37 WBC RBC Hgb Hct MCV MCH MCHC RDW Plt Count MPV Immature Gran % (Auto) Neut % (Auto) Lymph % (Auto) [place] % (Auto) Eos % (Auto) Baso % (Auto) Lymph # (Auto) [place] # (Auto) Eos # (Auto) Baso # (Auto) Abs Immat Gran (auto) Absolute Neuts (auto) Absolute Nucleated RBC Nucleated RBC % (auto) PT INR APTT Sodium Potassium Chloride Carbon Dioxide Anion Gap BUN Creatinine Estim Creat Clear Calc Estimated GFR Random Glucose Estimat Average Glucose 100 Hemoglobin A1c % 5.1 Insulin Level Calcium Total Bilirubin AST ALT Alkaline Phosphatase C-Reactive Protein Total Protein Albumin Triglycerides Cholesterol LDL Cholesterol, Calc HDL Cholesterol TSH Blood Type A Positive Antibody Screen NEGATIVE Narrative Narrative: EKG 02/2021 sinus rhythm at 64/Min and nonspecific ST-T changes Echo 05/2020 Conclusions: -? 1. Normal LV systolic function with moderate LVH with impaired relaxation filling pattern ? 2. Mildly dilated left atrium? 3. Normal cardiac valvular Doppler ? 4. No gross pericardial effusion ?? NM rhonda perf SPECT rest & str 03/2021 Impression: ? 1.? Myocardial perfusion imaging study shows mild intensity apical ischemia 2.? Gated LVEF is greater than 55% 3. Transient ischemic dilatation present ? EKG is nondiagnostic for ischemia Assessment and Plan Assessment Anesthesia Assessment: Chart Reviewed Documented by User: Kimi Aguilar MD 06/06/21 07:20 [facility] Past Medical History Medical History Cardiomegaly Cholecystectomy planned COVID-19 vaccine series completed DJD (degenerative joint disease) GERD (gastroesophageal reflux disease) High cholesterol Hypertension Morbid obesity Shoulder pain, left Sleep apnea with use of continuous positive airway pressure (CPAP) Subclavian artery stenosis, right Family History Family History Father H/O ETOH abuse Hypertension Alzheimers disease Substance use disorder Mental health disorder Mother Medical history unknown Brother Hypertension Diabetes Family history of problems with anesthesia: No Surgical History Surgical History History of cholecystectomy History of umbilical hernia repair Hx of cardiac cath Hx of colonoscopy History of Problems with Anesthesia: No Social History Social History Housing: Apartment Are you a primary patient care technician to a significant other at home: No Do you presently have visiting nurse or other home services: No Alcohol intake: never Patient Tobacco Use Status: Former Tobacco user Quit Date: 20 yrs ago Tobacco use type: Cigarette e-Cigarette/Vaping Use: Never Used Second Hand Smoke Exposure: No Use of substances other than those prescribed or required for medical reasons: No Have you been hit, kicked, punched, or otherwise hurt by someone within the past year? If so, by whom?: No Are you DNR?: No Advance Directives: No Advance Directives Information Provided: No Advance Directives on File: No Recently lost weight without trying: No How much weight loss: 14-23 pounds Eating poorly because of decreased appetite: No Nutrition screen score: 2 Nutrition Risks: No Nutritional Risk Current occupational status: disabled Meds Allergies Allergy/AdvReac Type Severity Reaction Status Date / Time No Known Allergies Allergy Verified 06/06/21 06:43 Home Medications Medication Instructions Recorded Confirmed Last Taken Type cyanocobalamin (vitamin B-12) 1,000 mcg SUBLINGUAL DAILY 03/14/21 05/31/21 Unknown History 1,000 mcg sublingual tablet Exam Airway Mallampati Class: III TM Dist: >3cm Neck ROM: Full Denture: Lower Assessment and Plan Assessment Anesthesia Assessment: Anesthesia Plan Discussed Final Anesthetic Review Family History of Problems with Anesthesia: No History of Problems with Anesthesia: No NPO: Yes ASA Class: III Final Preanesthetic Review: No Changes in Pt Med Stat, Meds/Allgs Chart Reviewed, Consent Obtained/Reviewed and Anes Risks/Benef Reviewed Patient Risk: Intermediate Procedure Risk: Intermediate Anesthetic Plan Anesthetic Plan: GA Disposition: Standard PACU
[2021-06-05 13:08] LABS: COVID-19 Test Negative (Negative)
[2021-06-06] VITALS (15 sets, daily range): BP systolic 91–144; BP diastolic 50–74; PULSE 56–72; RESP 14–18; TEMP 36.1–37.1; O2SAT 91–100
[2021-06-06] MEDS: Lactated Ringers 1,000 ML 999 ML IV (07:00)
[2021-06-06] MEDS: Lactated Ringers 1,000 ML 100 ML IVCONT ×3 (07:00→20:03)
[2021-06-06] MEDS: ceFAZolin Sodium/Dextrose,Iso 2 GM/50 ML PIGGYBACK IV ×2 (08:01→14:35)
--- NOTE | 2021-06-06 10:12 | PM.OP ---
Brief Operative Note Date of Service: 06/06/21 Pre-op diagnosis: Refractory morbid obesity with comorbidities (see below) Post-op diagnosis: same Procedure: INITIAL PATIENT BMI ON PRESENTATION AT OUR OFFICE: 49.2 kg/m2 LAST BMI BEFORE SURGERY: 42.8 kg/m2 COMORBIDITIES: sleep apnea on CPAP, hypertension, left ventricular hypertrophy, right subclavian stenosis, hyperlipidemia, GERD, DJD, diaphragmatic hernia, left atrium dilation, CAD ?The patient presented to the Weight Management Program with significant obesity that was negatively impacting the patient's comorbidities as listed above.? The program is a phased program with a special focus on preoperative medical weight management to promote substantial weight loss and prepare the patients for the second phase of the program: bariatric surgery. The patient participated in an intensive weekly lifestyle ?intervention and exercise program during which the patient ?has lost between the initial office visit and the last preoperative visit 38.8lbs, or 13.55% of initial actual body weight. It was deemed appropriate for the patient to now have bariatric surgery. In light of the current Covid-19 pandemic and the well documented strong association of obesity and increased risk of worse outcomes if infected with Covid-19 (REFERENCES:https://pubmed.ncbi.nlm.nih.gov/17759762/,?https://pubmed.ncbi.nlm.nih.gov/60892991/), any delay in undergoing bariatric surgery may lead to the patient's worsening health condition and increased?risk of more severe Covid-19 disease if infected. In addition a recent?study from [facility] published in [facility] on 04/17/2021 ([email or web address]) found that, among patients with obesity, substantial weight loss achieved with surgery was associated with improved outcomes of COVID-19 infection. The findings suggest that obesity can be a modifiable risk factor for the severity of COVID-19 infection. In addition, the patient met the BMI-criteria for bariatric surgery based on the BMI on initial presentation. The patient should not be penalized for achieving such weight loss because ?it is not sustainable long-term without surgical intervention and it was achieved in preparation for bariatric surgery ?under my direction and based on my published research ([email or web address] and?[email or web address].soard.org/article/[email or web address])38930-[email or web address]/pdf) ?that a 10% preoperative weight loss improves long-term weight loss after surgery and reduces perioperative complications.? Insurance carriers such as [employer] [place] have endorsed my recommendations ?and have included in their policies criteria to include a 10% preoperative weight loss requirement. PROCEDURE: Esophago-gastroscopy, laparoscopic sleeve gastrectomy and laparoscopic gastropexy INDICATIONS: This is a 60 year-old male who was electively scheduled for laparoscopic, possibly open sleeve gastrectomy. The risks and complications of the procedure were discussed with the patient in advance, particularly the possibility of ; pulmonary embolism; staple line leak; bleeding; GERD; cardiac, pulmonary, or renal complications; as well as long-term problems such as insufficient weight loss, vitamin deficiency, strictures, or ulcers. The patient understood all the risks, and was in agreement to proceed with surgery. DESCRIPTION OF PROCEDURE: After informed consent was obtained from the patient, the patient was given preoperative antibiotics, and was transferred to the operating room. After successful induction of general anesthesia, pneumatic compression devices were placed on both lower extremities. An upper endoscopy was performed next. The oropharynx and esophagus appeared to be within normal limits. There was no diaphragmatic hernia present. The stomach was entered. Then after all fluid and air were suctioned and the stomach was fully decompressed, the scope was withdrawn and secured in the mid esophagus. The patient was then prepped and draped in the usual sterile manner, and abdominal access was established at the right upper quadrant with the Del technique. A 12 mm blunt port was inserted, and the abdomen was insufflated with CO2 to a pressure of 15 mmHg. Under direct visualization, additional ports were placed, specifically two 5 mm Versi-step ports to the left upper quadrant, and a 5 mm Versi-Step port to the right upper quadrant. 1% lidocaine plain was used to infiltrate all port sites as well as all fascia defects. Following that, the patient was placed in a steep reverse Trendelenburg position. An additional 5 mm port was placed to the right flank for the Mediflex retractor that was used to retract the left lobe of the liver. The gastro-esophageal fat pad was opened with the ultrasonic device (Thunderbeat, Olympus) and the anterior esophagus and hiatus were exposed. The angle of His was opened with the ultrasonic device the fundus of the stomach from any diaphragmatic and splenic attachments. I then opened the gastrocolic ligament between the transverse colon and the greater curvature of the stomach with the ultrasonic device to enter the lesser sac and facilitate the ligation of the short gastric vessels. I started at a mid-point along the greater curvature and using the Thunderbeat, all short gastric vessels were divided all the way to the angle of His until the left lois was completely dissected at its entirety. I then divided the gastro-colic ligament distally to a distance of about 3-4 cm proximal to the esophagus. The stomach was then divided transversely with one Endo SHOBHA-45 purple and 5 SHOBHA-60 articulating orange loads using the AEON stapler and loads. Every effort was made that the gastric sleeve had a tubular shape and an even caliber throughout. Once the sleeve resection was completed, the staple line of the gastric sleeve was reinforced with Hemoclips. The resected stomach was retrieved without difficulty from the Del port. A gastropexy was then performed in order to prevent postoperative GERD and partial gastric volvulus. Several interrupted 2.0 Surgidac sutures were placed between the sleeve's staple line and the previously divided greater omentum and gastro-colic ligament using the Endo-Stitch device. ?An upper endoscopy was performed. There was no narrowing at the GE junction. The scope was easily advanced all the way to the pylorus which was clearly visualized. There was no narrowing anywhere and the sleeve's caliber was even throughout. The sleeve's staple line was inspected and there was no evidence of ischemia, bleeding or dehiscence. At that point the gastroscope was withdrawn from the patient?s mouth while we were decompressing the bowel and the stomach from any remaining air. I looked into the lesser sac to see how the sleeve was situating and it was situating well. There was no bleeding from the staple line, spleen, or short gastric vessels. The Mediflex retractor was removed, and the undersurface of the liver was inspected and there was no bleeding. The patient was placed in supine position. I closed the fascial defect of the 12 mm port site with a figure of eight #1 Polysorb suture. Then 100 cc 0.25 % Marcaine plain with 10 mg of Dexamethasone were used to infiltrate the fascial closure as well as all skin incisions. At this point, the abdomen was deflated, all ports were removed under direct vision, and no bleeding was noted from any of the port sites. The skin incisions were irrigated with saline and were closed with 4-0 absorbable monofilament sutures. Steri-Strips and OpSites were used to cover all incisions. The patient was extubated and was transferred in stable condition to the recovery room for further care. I was present and performed all pereira parts of the procedure. Ms. Smith was the equity sales assistant. There were no residents to assist with this case. Erick Salas MD, PhD, FACS Surgeon: Jorge Salas MD Anesthesia: GETA, local and other (TAP block) Was an Fitness Plan Coordinator used for this Procedure?: Yes Fitness Plan Coordinator: Di Smith Estimated blood loss (mL): 10 IV fluids (mL): 2,500 Urine output (mL): 0 (No Zamora to gravity) Pathology: other (Stomach) Condition: stable Disposition: PACU
--- NOTE | 2021-06-06 10:17 | PM.PNGS ---
Subjective Subjective Date of Service: 06/07/21 Interval history: Patient has mild incisional pain, but was able to ambulate and use the incentive spirometer. He is tolerating phase 1 bariatric diet Physical Exam Vital Signs: Vital Signs: Last Vital Signs Temp 97.3 F 06/06/21 06:27 Pulse 71 06/06/21 06:27 Resp 18 06/06/21 06:27 BP 139/74 06/06/21 06:27 Pulse Ox 93 06/06/21 06:27 BMI result Body Mass Index 42.6 GI: Inspection: Yes normal to inspection, Yes incision (clean, dry and intact) and Yes obesity Extrem: Right lower extremity: normal to inspection (no calf tenderness) Left lower extremity: normal to inspection (no calf tenderness) Objective Data Active Medications Hydromorphone HCl (Hydromorphone Hcl 0.5 Mg/0.5 Ml Syringe) 0.5 mg IVPUSH Q5M PRN; Protocol PRN Reason: Pain, Severe (Pain Scale 7-10) Lactated Ringer's (Lr) 1,000 mls @ 100 mls/hr IVCONT .Q10H FREYA Last Admin: 06/06/21 07:00 Dose: 100 mls/hr Documented by: LO Ondansetron HCl (Ondansetron Hcl 4 Mg/2 Ml Vial) 4 mg IVPUSH ONCE PRN PRN Reason: Nausea and Vomiting Labs CBC & Chem 7: 06/07/21 05:14 06/07/21 05:14 Labs: Laboratory Results - last 24 hr 06/05/21 12:35 COVID-19 (EMILEE) Negative COVID-19 Clin Com See Note Procedures Date of Service Date of Service: 06/07/21 Progress Note: A&P Assessment and plan (1) S/P laparoscopic sleeve gastrectomy: Status: Acute Assessment and Plan: s/p laparoscopic sleeve gastrectomy and gastropexy Doing well Check am labs. If OK, will discharge home? (2) Morbid obesity: Status: Acute (3) Subclavian artery stenosis, right: Status: Acute (4) Hypertension: Status: Acute (5) High cholesterol: Status: Acute (6) Sleep apnea with use of continuous positive airway pressure (CPAP): Status: Acute (7) GERD (gastroesophageal reflux disease): Status: Acute (8) DJD (degenerative joint disease): Status: Acute (9) Myocardial ischemia: Status: Acute (10) LVH (left ventricular hypertrophy): Status: Acute (11) Left atrial dilation: Status: Acute Fall Risk Details Current Medications: Current Medications Hydromorphone HCl (Hydromorphone Hcl 0.5 Mg/0.5 Ml Syringe) 0.5 mg IVPUSH Q5M PRN; Protocol PRN Reason: Pain, Severe (Pain Scale 7-10) Lactated Ringer's (Lr) 1,000 mls @ 100 mls/hr IVCONT .Q10H FREYA Last Admin: 06/06/21 07:00 Dose: 100 mls/hr Documented by: Ondansetron HCl (Ondansetron Hcl 4 Mg/2 Ml Vial) 4 mg IVPUSH ONCE PRN PRN Reason: Nausea and Vomiting Time Spent With Patient Time: Total time spent is greater than 50% in coordination of care (as documented) at patient's floor/unit and/or counseling patient: Time with patient: less than 15 minutes Quality Stroke Does the patient have a stroke diagnosis?: No VTE Prior VTE?: No VTE Risk Level:: Surgical - moderate VTE Device Contraindication: N/A - Device Ordered VTE Drug Contraindication: Treatment Not Indicated
--- NOTE | 2021-06-06 10:19 | P.DS_ITS ---
DS: Providers Provider Date of Service: 06/07/21 Date of admission: 06/06/21 06:13 Primary care physician: Kevin Orozco PA-C DS: Summary Hospital Course Hospital Course: ADMITTING DIAGNOSIS: morbid obesity, HTN, PABLO, LVH, Hyperlipidemia, GERD DISCHARGE DIAGNOSIS: same, s/p laparoscopic sleeve gastrectomy PAST SURGICAL HISTORY: cholecystectomy, umbillical hernia repair, cardiac catheterization PROCEDURE: upper endoscopy, laparoscopic sleeve gastrectomy DISCHARGE SUMMARY: History of Present Illness: The patient is a 60year-old woman with a BMI of 49.1 kg/m2 and associated co- morbidities as described above. The patient had extensive work-up,lost 37.8 lbs preoperatively and was electively scheduled for laparoscopic, possible open sleeve gastrectomy and gastropexy. Risks and complications of the surgery were discussed with the patient in advance, particularly the possibility of , pulmonary embolism, anastomotic leak, bleeding, bowel injury, GERD, cardiac, renal or pulmonary complications. The patient understood all the risks and was in agreement with the surgical plan. Hospital Course: The patient underwent an uneventful laparoscopic sleeve gastrectomy with gastropexy on the day of admission. Postoperatively, the patient was transferred to the surgical floor. The patient received IV Acetaminophen and IV dilaudid for pain control. Patient was started on bariatric phase 1 diet POD #0. On postoperative day one, the patient was feeling well without nausea, vomiting, fevers, or tachycardia. The patient had some mild incisional pain and the abdomen was soft. On the morning of postoperative day one, the patient was continued on 1 ounce of water or ice every half hour. During the day, the patient did fairly well, having some incisional pain, but able to ambulate adequately and to tolerate liquids well. Since the patient is doing well, we decided that the patient was ready to be discharged. The patient was given instructions to follow-up with me next week and to call my office for any fever over 101, persistent abdominal pain, nausea, vomiting, GERD, symptoms of DVT such as calf tenderness, or leg swelling, or pulmonary embolism such as chest pain or shortness of breath. The patient was also instructed to drink 40-60 ounces of liquids per day using the 1-ounce cups. The patient had been given prescriptions for Tylenol for pain, Zofran prn for nausea, and pantoprazole and carafate previously. The patient was encouraged to ambulate and use the incentive spirometer. The patient was allowed to shower, but no baths, and encouraged to stay active at home. All of these instructions were given to the patient personally. All questions were answered and the patient understood all instructions, the instructions were also given to the patient in print. Time Spent with Patient Time attestation: Total time spent providing and/or coordinating discharge services: Discharge coordination time: Less than 30 minutes Quality: Stroke Does the patient have a stroke diagnosis?: No Physical Exam Vital Signs: Vital Signs: Last Vital Signs Temp 97.3 F 06/06/21 06:27 Pulse 71 06/06/21 06:27 Resp 18 06/06/21 06:27 BP 139/74 06/06/21 06:27 Pulse Ox 93 06/06/21 06:27 BMI result Body Mass Index 42.6 DS: Data Data Completed and Pending Pending studies at discharge: Pending at discharge 06/06/21 09:33 Surgical [PTH] Routine Labs on day of discharge: Laboratory Results - last 24 hr 06/05/21 12:35 COVID-19 ([facility]) Negative COVID-19 Clin Com See Note Discharge Plan Discharge Anticipated Discharge Date/Time: 06/07/21 10:14 Patient Disposition: Home, Self-Care Discharge Diagnosis: s/p sleeve gastrectomy Referrals: Kevin Orozco PA-C [Primary Care Provider] - 1 Week Discharge Medications: Continued amlodipine-benazepril 10-40 mg capsule 1 cap PO DAILY Qty: 30 5RF cyclobenzaprine 10 mg tablet 10 mg PO BEDTIME 90 Days Qty: 90 1RF miscellaneous medical supply Mis 1 ea miscellaneous .nightly 99 Days Qty: 1 0RF diclofenac sodium 1 % gel 4 g topical TID 30 Days Qty: 100 2RF carvedilol [Coreg] 6.25 mg tablet 6.25 mg PO BID Qty: 180 3RF Rx Instructions: must administer with a meal/food pantoprazole 40 mg tablet,delayed release (DR/EC) 40 mg PO DAILY Qty: 30 2RF sucralfate 100 mg/mL suspension 10 ml PO BID Qty: 400 2RF ondansetron HCl 4 mg tablet 4 mg PO Q6H PRN (Reason: nausea and vomiting) Qty: 30 2RF Held hydrochlorothiazide 25 mg tablet 25 mg PO DAILY 90 Days Qty: 90 2RF Hold Instructions: Discuss restart with Dr Salas Discontinued ergocalciferol (vitamin D2) 1,250 mcg (50,000 unit) capsule 1,250 mcg PO QWEEK 90 Days Qty: 13 0RF mecobalamin (vitamin B12) 1,000 mcg tablet,disintegrating 1,000 mcg sublingual DAILY Qty: 30 4RF Rx Instructions: place tablet under tongue and allow to dissolve for at least30 secs before swallowing cholecalciferol (vitamin D3) 125 mcg (5,000 unit) capsule 125 mcg PO DAILY Qty: 30 2RF cyanocobalamin (vitamin B-12) 1,000 mcg tablet, sublingual 1,000 mcg sublingual DAILY 0RF polyethylene glycol 3350 [Miralax] 17 gram powder in packet 17 g PO DAILY Qty: 14 0RF Rx Instructions: Mix each packet with 8oz of water and do 7 packets on 06/04/21 and another 7 packets on 06/05/21 Discharge Orders: Discharge Order (Routine); Ordered 06/07/21 Ordered By: Jorge Salas Diet: other Activity on Discharge: No heavy lifting Stand Alone Forms: Patient Portal Discharge page Care Plan Goals: weight loss Health Concerns: morbid obesity Plan of Treatment: No tub baths, sex or returning to work until discussed at first post op appointment. No exercise, alcohol, tobacco or illegal drug use. Continue to use incentive spirometer hourly while awake. Walk in home for 5- 10 minutes every 2 hours during the first week. Continue phase 1 diet today and start phase 2 diet tomorrow morning. Follow all instructions in the bariatric handbook and call with any questions. 1. Please call your doctor or come back to the emergency room should any new symptoms arise. 2. You will receive a courtesy call from [facility] 24-48 hours after discharge. 3. Activity: abstain from alcohol, practice limited stair climbing, no bending, no driving, no exercise, no illicit substances, no lifting, no sex, no tub bath, no work. 4. Diet: continue as discussed with Dr. Salas. 5. Dressing Change/Wound Care: Do not change or remove surgical dressings unless they are wet or soiled. 6. Call your doctor if: - Your temperature exceeds 101.5 F - You experience excessive pain or swelling - You have an unexpected reaction to medication - You have excessive bleeding - You experience continued vomiting/nausea - Your incision begins to separate - Your incision shows signs of infection such as increased redness, swelling, excessive pain, heat, or drainage (light blood or clear fluid is normal) 7. General instructions: No lifting greater than 5 lbs for the next 4 weeks[address] driving within 24 hours of taking narcotic pain medications. If you do not move your bowels in the next 2 days, please take milk of magnesia over the counter. Please follow the post op diet and do not advance your diet until you are seen in the office in about 2 weeks. Please walk around your home every hour or two to prevent blood clots from forming in your legs. You do not need to wake from sleeping to walk. Please sleep in a bed or couch to prevent kinking at the hips and knees. Please take your incentive spirometer (your lung zigzag elastic attacher) home with you and use it for the next few days to prevent pneumonias. You may shower, no hot tubs, baths or swimming pools. Please call the office with any questions or concerns such as increasing abdominal pain, fever, chills, shortness of breath, chest pain, leg pain or swelling, or redness or drainage from your incisions. Do not hesitate to contact the office with any questions at . The patient's medical history has been reviewed and they are considered low risk for post op DVT and therefore DVT prophylaxis is not considered necessary. Travel after surgery was reviewed. The patient has not disclosed any travel plans during the first 30 days after surgery and they have been advised that within the first 30 days after surgery any bus, plane, train or car travel over 2 hours in duration is contraindicated due to the possibility of developing blood clots from immobility. Any travel, needs to include periods of ambulation of 10 minutes in duration every 2 hours. The patient was instructed to discuss any plans for travel during this period with their bariatric surgeon. Assessment: Stable, post op sleeve gastrectomy Discharge Date/Time: 06/07/21 09:33
[2021-06-06] MEDS: Metoclopramide HCl 10 MG/2 ML VIAL IVPUSH (11:00)
[2021-06-06] MEDS: Famotidine/PF 20 MG/2 ML VIAL IVPUSH ×2 (11:02→20:03)
[2021-06-06 11:42] LABS: Hematocrit 37.1 % (42.0-52.0); Hemoglobin 12.4 g/dl (14.0-18.0)
[2021-06-06] MEDS: HYDROmorphone HCl 0.5 MG/0.5 ML SYRINGE IVPUSH (11:51)
[2021-06-06 12:24] LABS: Anion Gap 14 (12-20); Blood Urea Nitrogen 13 mg/dL (9-16); Calcium 8.7 mg/dL (8.4-10.2); Carbon Dioxide 26 mmol/L (22-29); Chloride 104 mmol/L (96-108); Creatinine Clr Calc Pharmacy 111.9; Estimated Glomerular Filt Rate > 60; Glucose Random 118 mg/dL (60-115); Potassium 3.5 mmol/L (3.3-5.1); Sodium 140 mmol/L (135-145)
[2021-06-06] MEDS: 0.9 % Sodium Chloride Flush 3 ML SYRINGE IVFLUSH (20:03)
[2021-06-06] MEDS: carvediloL 6.25 MG TABLET PO (20:03)
[2021-06-06] MEDS: ondansetron HCL 4 MG/2 ML VIAL IVPUSH (21:22)
--- NOTE | 2021-06-06 21:24 | PC.RT ---
Pt refusing to go on home CPAP; states he has not used the machine in over a year. After conversation of benefits of CPAP pt states he will call if he changes his mind.
[2021-06-07 03:22] VITALS: BP 113/53; PULSE 71; RESP 18; TEMP 36.8; O2SAT 95
[2021-06-07] MEDS: Lactated Ringers 1,000 ML 100 ML IVCONT (05:29)
[2021-06-07] MEDS: ondansetron HCL 4 MG/2 ML VIAL IVPUSH (05:30)
[2021-06-07 05:48] LABS: MANUAL DIFF FLAG NO
[2021-06-07 05:56] LABS: Hematocrit 37.4 % (42.0-52.0); Hemoglobin 12.4 g/dl (14.0-18.0); Imm Gran Abs Auto 0.03 X10*3/uL (0.00-0.03); Imm Gran Pct Auto 0.4 % (0.0-0.4); Lymphocytes Absolute Auto 0.8 X10*3/uL (1.2-4.9); Lymphocytes Percent Auto 11.1 % (20-40); Mean Corpuscular HGB Conc 33.2 g/dl (31.0-36.0); Mean Corpuscular Volume 87.6 fL (80.0-98.0); Mean Platelet Volume 10.7 fL (9.4-12.4); Monocytes Absolute Auto 0.3 X10*3/uL (0.1-1.2); Monocytes Percent Auto 3.6 % (2-11); Neutrophils Absolute Auto 5.9 x10*3/uL (2.0-8.3); Neutrophils Percent Auto 84.9 % (45-73); Platelet Count 223 X10*3/uL (160-400); Red Blood Count 4.27 X10*6/uL (4.60-5.80); Red Cell Distribution Width 13.2 % (11.0-16.0)
[2021-06-07 06:16] LABS: Anion Gap 13 (12-20); Blood Urea Nitrogen 11 mg/dL (9-16); Calcium 9.3 mg/dL (8.4-10.2); Carbon Dioxide 29 mmol/L (22-29); Chloride 106 mmol/L (96-108); Creatinine Clr Calc Pharmacy 119.3; Estimated Glomerular Filt Rate > 60; Glucose Random 124 mg/dL (60-115); Potassium 4.5 mmol/L (3.3-5.1); Sodium 143 mmol/L (135-145)
[2021-06-07 07:26] VITALS: BP 136/86; PULSE 70; RESP 18; TEMP 36.3; O2SAT 99
[2021-06-07] MEDS: Famotidine/PF 20 MG/2 ML VIAL IVPUSH (07:29)
[2021-06-07] MEDS: lisinopriL 40 MG TABLET PO (07:29)
[2021-06-07] MEDS: amLODIPine Besylate 10 MG TABLET PO (07:29)
[2021-06-07] MEDS: carvediloL 6.25 MG TABLET PO (07:29)
--- NOTE | 2021-06-07 08:01 | HO.POSTANES ---
Post Anesthesia Evaluation Post Anesthesia Evaluation Vital Signs: Vital Signs Temp Pulse Resp BP Pulse Ox 06/07/21 07:26 97.4 F 70 18 136/86 99 06/07/21 03:22 98.2 F 71 18 113/53 L 95 06/06/21 23:45 98.1 F 68 18 138/73 95 Anesthesia: General Endotracheal-GETA Mental Status: Awake Pain Control: Satisfactory Nausea/Vomiting: None Hydration: Adequate Anesthesia-Related Issues: No Anes. Related Issues
== END 2021-06-07 09:33 | disposition home or self-care (01) | DRG 403 ==
LOC: HO.SSSA 10:19 → HO.S3 11:31
PROVIDERS: Physician Assistant; Physician Assistant Surgical; Admitting Provider Surgery; PCP Physician Assistant; Visit Provider Surgery
PROC: 0DB64Z3 Excision of Stomach, Percutaneous Endoscopic Approach, Vertical (ICD-10-PCS; CPT 43845; principal; 2021-06-06 07:30)
DX: E66.01 Morbid (severe) obesity due to excess calories (principal); E78.5 Hyperlipidemia, unspecified; G47.30 Sleep apnea, unspecified; I70.8 Atherosclerosis of other arteries; I51.7 Cardiomegaly; I10 Essential (primary) hypertension; Z68.41 Body mass index [BMI] 40.0-44.9, adult; K21.9 Gastro-esophageal reflux disease without esophagitis; I25.10 Atherosclerotic heart disease of native coronary artery without angina pectoris; M19.90 Unspecified osteoarthritis, unspecified site; Z20.822 Contact with and (suspected) exposure to COVID-19; Z87.891 Personal history of nicotine dependence; Z79.899 Other long term (current) drug therapy
CPT/HCPCS: 36415; 80048; 80053; 80061; 83036; 83525; 84443; 85014; 85018; 85025; 85610; 85730; 86140; 86850; 86900; 86901; 87635; 88307; 88342; 99024; A4649; J0131; J0690; J1100; J1170; J2250; J2405; J2765; J3010

== ENCOUNTER → 2021-06-13 14:26 | Outpatient (BNVA) | payer OTHER, SELFPAY | PROVIDERS: PCP Physician Assistant; Referring Provider Physician Assistant; Visit Provider Surgery | DX: E66.01 Morbid (severe) obesity due to excess calories (principal); Z98.84 Bariatric surgery status; Z68.41 Body mass index [BMI] 40.0-44.9, adult | CPT/HCPCS: 99212 ==

== ENCOUNTER → 2021-07-17 08:11 | Outpatient (BNVA) | payer OTHER, SELFPAY | PROVIDERS: PCP Physician Assistant; Visit Provider Surgery | DX: E66.01 Morbid (severe) obesity due to excess calories (principal); Z68.38 Body mass index [BMI] 38.0-38.9, adult | CPT/HCPCS: 99212 ==

== ENCOUNTER → 2021-08-02 09:50 | Outpatient (BNVA) | payer OTHER, SELFPAY | PROVIDERS: PCP Physician Assistant; Visit Provider Internal Medicine | DX: Z13.89 Encounter for screening for other disorder (principal) ==

== ENCOUNTER → 2021-08-14 10:55 | Outpatient (BNVA) | payer OTHER, SELFPAY | PROVIDERS: PCP Physician Assistant; Referring Provider Physician Assistant; Visit Provider Dietitian, Registered | DX: E66.9 Obesity, unspecified (principal); Z68.35 Body mass index [BMI] 35.0-35.9, adult | CPT/HCPCS: 97803 ==

== ENCOUNTER → 2021-08-22 08:09 | Outpatient (BNVA) | payer OTHER, SELFPAY | PROVIDERS: PCP Physician Assistant; Referring Provider Surgery; Visit Provider Dietitian, Registered | DX: E66.01 Morbid (severe) obesity due to excess calories (principal); Z68.35 Body mass index [BMI] 35.0-35.9, adult; Z98.84 Bariatric surgery status; Z71.3 Dietary counseling and surveillance | CPT/HCPCS: 97803 ==

== ENCOUNTER → 2021-08-29 10:11 | Outpatient (BNVA) | payer OTHER, SELFPAY | PROVIDERS: PCP Physician Assistant; Referring Provider Physician Assistant; Visit Provider Internal Medicine | DX: I11.9 Hypertensive heart disease without heart failure (principal); I77.1 Stricture of artery; R94.39 Abnormal result of other cardiovascular function study | CPT/HCPCS: 99212 ==

== ENCOUNTER → 2021-09-04 08:05 | Outpatient (BNVA) | payer OTHER, SELFPAY | PROVIDERS: PCP Physician Assistant; Referring Provider Surgery; Visit Provider Dietitian, Registered | DX: Z13.89 Encounter for screening for other disorder (principal) ==

== ENCOUNTER → 2021-09-20 15:27 | Outpatient (BNVA) | payer OTHER, SELFPAY | PROVIDERS: PCP Physician Assistant; Referring Provider Surgery; Visit Provider Dietitian, Registered | DX: E66.9 Obesity, unspecified (principal); Z68.34 Body mass index [BMI] 34.0-34.9, adult | CPT/HCPCS: 97803 ==

== ENCOUNTER → 2021-10-10 09:51 | Outpatient (BNVA) | payer OTHER, SELFPAY | PROVIDERS: PCP Physician Assistant; Referring Provider Surgery; Visit Provider Dietitian, Registered | DX: E66.9 Obesity, unspecified (principal); Z68.33 Body mass index [BMI] 33.0-33.9, adult; Z98.84 Bariatric surgery status; Z71.3 Dietary counseling and surveillance | CPT/HCPCS: 97803 ==

== ENCOUNTER → 2021-10-16 08:49 | Outpatient (REF) | payer OTHER, SELFPAY | LOC: HO.SL 08:49 | PROVIDERS: PCP Physician Assistant; Visit Provider Internal Medicine | DX: G47.33 Obstructive sleep apnea (adult) (pediatric) (principal); Z98.84 Bariatric surgery status | CPT/HCPCS: 95806 ==

== ENCOUNTER → 2021-11-13 10:55 | Outpatient (BNVA) | payer OTHER, SELFPAY | PROVIDERS: PCP Physician Assistant; Referring Provider Surgery; Visit Provider Dietitian, Registered | DX: E66.9 Obesity, unspecified (principal); Z68.34 Body mass index [BMI] 34.0-34.9, adult; Z98.84 Bariatric surgery status; Z71.3 Dietary counseling and surveillance | CPT/HCPCS: 97803 ==

== ENCOUNTER → 2021-11-23 10:58 | Outpatient (BNVA) | payer OTHER, SELFPAY | PROVIDERS: PCP Physician Assistant; Referring Provider Surgery; Visit Provider Physician Assistant Surgical | DX: E66.01 Morbid (severe) obesity due to excess calories (principal); Z68.42 Body mass index [BMI] 45.0-49.9, adult; Z98.84 Bariatric surgery status | CPT/HCPCS: 99212 ==

== ENCOUNTER 2021-12-12 07:45 | Outpatient (REF) | payer OTHER, SELFPAY ==
--- NOTE | ~2021-12-12 | XR_ITS ---
EXAMINATION: XR FOOT, LEFT CLINICAL INFORMATION: Acquired deformity of the lower leg. Pain in the second and third toes. COMPARISON: None TECHNIQUE: AP, lateral, and oblique views of the left foot. FINDINGS: There is no fracture. On the frontal view, there is appropriate alignment of the digits. On the oblique view, there is question raised of subluxation of the third digit middle phalanx in relation to the proximal phalanx. Suggestion of prior healed second digit proximal phalanx fracture. Prominent heel spurs. No ankle joint effusion. XR/XR foot LT 2V IMPRESSION: No acute fractures seen. On the oblique view there is question of subluxation at the third digit proximal interphalangeal joint. This appears appropriately aligned on the AP view.
[2021-12-12 08:36] LABS: Estimated Average Glucose 85 mg/dL; Hemoglobin A1c % 4.6 %
[2021-12-12 09:02] LABS: C Reactive Protein 0.23 mg/dL (< or = 0.50); Iron 108 mcg/dL (45-160); Percent Iron Saturation 33 % (15-50); Total Iron Binding Capacity 323 mcg/dL (228-428); Unsaturated Iron Binding 215 ug/dL
[2021-12-12 09:25] LABS: Ferritin 178 ng/mL (20-250); Insulin 5 uU/mL (2-29)
[2021-12-12 09:44] LABS: Folate 15.7 ng/mL (> or = 4.0); Vitamin B12 531 pg/mL (200-900)
[2021-12-14 16:13] LABS: Calcium (PTHI) 9.3 mg/dL (8.6-10.3); PTHI 70 pg/mL (16-77)
[2021-12-15 05:46] LABS: Zinc 91 mcg/dL (60-130)
[2021-12-15 20:36] LABS: Vitamin A 46 mcg/dL (38-98)
[2021-12-17 05:07] LABS: Vitamin B1 16 nmol/L (8-30)
== END 2021-12-12 07:46 | disposition home or self-care (01) ==
LOC: HO.XRAY 07:45
PROVIDERS: Absent Provider Physician Assistant Surgical; Visit Provider Physician Assistant
DX: M21.962 Unspecified acquired deformity of left lower leg (principal); Z98.84 Bariatric surgery status
CPT/HCPCS: 36415; 73620; 82306; 82607; 82728; 82746; 83036; 83525; 83540; 83970; 84425; 84590; 84630; 86140

== ENCOUNTER → 2022-01-04 15:17 | Outpatient (BNVA) | payer OTHER, SELFPAY | PROVIDERS: PCP Physician Assistant; Referring Provider Surgery; Visit Provider Dietitian, Registered | DX: E66.9 Obesity, unspecified (principal); Z68.30 Body mass index [BMI] 30.0-30.9, adult | CPT/HCPCS: 97803 ==

== ENCOUNTER → 2022-02-05 09:59 | Outpatient (BNVA) | payer OTHER, SELFPAY | PROVIDERS: PCP Physician Assistant; Visit Provider Dietitian, Registered | DX: E66.9 Obesity, unspecified (principal) | CPT/HCPCS: 97803 ==

== ENCOUNTER 2022-03-06 10:07 | Outpatient (REF) | payer OTHER, SELFPAY ==
--- NOTE | ~2022-03-06 | US_ITS ---
EXAMINATION: US RENAL DOPPLER CLINICAL INFORMATION: Essential primary hypertension. COMPARISON: Previous abdominal ultrasound 03/21/[address] of the abdomen and pelvis 02/03/2019. TECHNIQUE: Doppler color and robles-scale evaluation of the kidneys. Robles-scale and color evaluation of the bilateral renal arteries and renal veins including waveform spectral analysis. FINDINGS: The kidneys are normal in contour and symmetric in size with the right kidney measuring 11.8 x 7.1 x 5.8 cm and the left kidney measuring 12.1 x 5.4 x 5 cm. There are small bilateral renal stones measuring 3 mm in the lower pole of the right kidney and 3 x 4 mm and 9 x 6 x 8 mm in the mid pole of the left kidney. No hydronephrosis or renal mass. Aortic peak systolic velocity measures 125 cm/s. This too high to be used to calculate renal artery to aorta ratio. Right renal artery peak systolic velocities measure 151, 199 and 202 cm/s, in the mid portion and distally. Resistive indices of the segmental renal arteries in the right kidney are slightly elevated measuring 0.7-0.8. The right renal vein is patent. Left renal artery peak systolic velocities measure 168, 198 and 105 cm/s, in the mid portion and distally. Resistive indices of the segmental renal arteries in the left kidney are slightly elevated measuring 0.7-0.8. The left renal vein is patent. US/US renal doppler IMPRESSION: Small bilateral renal stones, left greater than right. Increased peak systolic velocity in the renal arteries bilaterally questionable for renal artery stenosis.
--- NOTE | ~2022-03-06 | XR_ITS ---
EXAMINATION: XR HAND, RIGHT CLINICAL INFORMATION: Chronic hand pain. COMPARISON: None TECHNIQUE: PA, lateral, and oblique views of the right hand. FINDINGS: No acute or healing fracture, dislocation, destructive process. There is healed mild posttraumatic deformity around the fifth PIP joint with secondary degenerative changes and mild medial angulation distal finger. The ulnar variance is neutral. There is a small benign cyst proximal carpal navicular. No carpal joint narrowing or chondrocalcinosis. The MCP joints are normal. There are borderline degenerative changes DIP joints intact, fourth, and fifth fingers. No erosive change. XR/XR hand RT 2V IMPRESSION: 1. Healed posttraumatic deformity fifth PIP joint with secondary degenerative changes. 2. Borderline degenerative changes DIP joints. No erosive changes.
--- NOTE | ~2022-03-06 | XR_ITS ---
EXAMINATION: XR ANKLE, RIGHT CLINICAL INFORMATION: Chronic right ankle pain. COMPARISON: None TECHNIQUE: Right ankle is imaged in 3 views. FINDINGS: No acute or healing fracture, dislocation, or destructive process. Ankle mortise is symmetric. No osteochondral lesion talar dome demonstrated. There is spurring at the distal anterior tibia and spurring bilateral distal malleoli. The retrocalcaneal recess is preserved. Subtalar joint unremarkable. There is moderate posterior and small plantar calcaneal spurs. Mild spurring base fifth metatarsal. XR/XR ankle RT 2V IMPRESSION: -No fracture or dislocation or destructive process. -Posterior and plantar calcaneal spurs. -Spurring medial and lateral malleoli, distal anterior tibia, and base fifth metatarsal.
== END 2022-03-06 10:08 | disposition home or self-care (01) ==
LOC: HO.US 10:07
PROVIDERS: Visit Provider Physician Assistant
DX: I10 Essential (primary) hypertension (principal); R41.3 Other amnesia; M79.641 Pain in right hand; M25.571 Pain in right ankle and joints of right foot; G89.29 Other chronic pain
CPT/HCPCS: 73120; 73600; 93975

== ENCOUNTER → 2022-03-12 13:40 | Outpatient (BNVA) | payer OTHER, SELFPAY | PROVIDERS: PCP Physician Assistant; Visit Provider Dietitian, Registered | DX: E66.9 Obesity, unspecified (principal) | CPT/HCPCS: 97803 ==

== ENCOUNTER → 2022-05-08 13:54 | Outpatient (BNVA) | payer OTHER, SELFPAY | PROVIDERS: PCP Physician Assistant; Visit Provider Surgery Vascular Surgery | DX: I70.1 Atherosclerosis of renal artery (principal) | CPT/HCPCS: 99212 ==

== ENCOUNTER 2022-05-21 13:30 | Outpatient (RCR) | payer OTHER, SELFPAY ==
--- NOTE | 2022-05-09 15:16 | MHC.OT.EP ---
[address] [phone] Occupational Therapy Plan of Care Date of Evaluation: 05/09/22 Diagnosis: PAIN IN RIGHT HAND Pain Location: R SMALL FINGER, PIPj 1/10 AT REST; 8/10 WITH USE STATES IT FEELS LIKE SOMEONE IS GRABBING AND TWISTING Pain Score: 1-8/10 Pain Scale Used: Numeric (0 - 10) Aggravating Factors: COLD WEATHER, APPLYING PRESSURE ONTO LATERAL ASPECT OF SF (WRITING ON TABLETOP) Alleviating Factors: LUIS TAKES ARTHRITIS MEDICATION Assessment: MR GARVIN IS A RIGHT HANDED MALE WHO PRESENTS WITH AN INCREASE IN RIGHT SF PAIN. HE HAD AN OLD FRACTURE FROM A BASKETBALL INJURY MANY YEARS AGO. HE IS OBSERVED USING COMPENSATORY TECHNIQUES WHILE DOING FUNCTIONAL TASKS, RESTS SF IN ABDUCTION. HE ENJOYS WRITING, AND DURING THIS TASK HE HAS INCRESED PAIN DUE TO PRESSURE ON ULNAR ASPECT OF HAND AND FINGER. HE DENIES DIFFICULTIES WITH ADDITIONAL ADLs AND IADLs. HE WOULD BENEFIT FROM BRIEF COURSE OF OT TO ADDRESS PAIN MANAGEMENT, JOINT PROTECTION, HEP AND ADAPTIVE TECHNIQUES. Frequency and Duration: The patient will be seen 1X/WEEK FOR 4 WEEKS Short Term Goals: IND HEP EXPLORE ADAPTIVE EQUIPMENT FOR ALT PENS, WRITING TOOLS REPORT <5/10 PAIN WITH WRITING, IADLs REPORT MOSTLY PAINFREE AT REST IND USE OF HEAT MODALITIES, CONSIDER HOME PARAFFIN UNIT IND JOINT PROTECTION STRATEGIES WITH ADLs AND IADLs Clinical Biochemical Geneticist Goals: SEE ABOVE Treatment Plan: Therapeutic Exercise Therapeutic Activity Home Exercise Program Splinting Neuro Re-ed Patient Education Desensitization/Sensory Re-ed Edema Control ADL Training Ultrasound NMES Iontophoresis Paraffin Fluidotherapy MHP Cold Packs Joint Mobilization Soft Tissue Mobilization Kinesiotaping Other (see comments) Electronically Signed By: RUSSEL RAMIREZ OTR/L Please Sign and return to therapist. Thank you once again for your referral.
--- NOTE | 2022-05-29 11:30 | MHC.OT.DC ---
[address] [phone] F: [phone] Occupational Therapy Discharge Note Provider: Kevin Orozco Diagnosis: PAIN IN RIGHT HAND Date of Evaluation: 05/09/22 Date of Discharge: 05/21/22 Treatments to Date: 3 Cancellations to Date: 0 No Shows to Date: 0 Discharge Status: Achieved Goals Improved Function Independent with HEP Discharge Summary: MR GARVIN HAS PROGRESSED WELL WITH HIS OT GOALS. HE REPORTS LESS PAIN AND IS SATISFIED WITH THE Pt EDUCATION HE WAS PROVIDED WITH DURING OT. ADAPTIVE STRATEGIES WERE DISCUSSED WITH Pt TO DECREASE PAIN WITH WRITING/ JOURNALING TASKS. HE PLANS TO UTILIZE COMPRESSION GLOVES FOR PAIN AND CONSIDER A HOME PARAFFIN UNIT. NO FURTHER OT WARRANTED AT THIS TIME, D/C OT SERVICES. Electronically Signed By: EDDIE ARRIOLA/Yael Reviewed/agree with student documentation: N/A Therapist: Please Sign and return to therapist, thank you for your referral.
== END 2022-05-21 15:15 | disposition home or self-care (01) ==
LOC: HO.OT 13:30
PROVIDERS: PCP Physician Assistant; Visit Provider Physician Assistant
DX: M79.641 Pain in right hand (principal)
CPT/HCPCS: 97035; 97110; 97165

== ENCOUNTER 2022-05-24 07:18 | Outpatient (REF) | payer OTHER, SELFPAY ==
--- NOTE | ~2022-05-24 | CT_ITS ---
EXAMINATION: CT ANGIOGRAM ABDOMEN CLINICAL INFORMATION: Atherosclerosis of the renal artery. COMPARISON: Renal artery Doppler 03/06/2022. TECHNIQUE: Multiple axial images were obtained through the abdomen following the administration of 80 mL Omnipaque 350 intravenous contrast. Images were reviewed on a dedicated 3-D workstation. This CT examination was performed using dose optimization techniques as appropriate, variously including the following: *Automated exposure control *Adjustment of mA and/or kV according to patient size (this includes techniques or standardized protocols for targeted exams where dose is matched to indication/reason for exam; i.e. extremities or head) *Use of iterative reconstruction technique DLP: 165 mGy-cm FINDINGS: Lower thoracic aorta is normal in caliber. The suprarenal aorta is normal in caliber with mild atherosclerotic disease. The infrarenal abdominal aorta is normal in caliber with mild atherosclerotic disease. Bilateral common iliac arteries are normal in caliber with mild atherosclerotic disease. The celiac artery is widely patent. Mild stenosis at the origin of the superior mesenteric artery. The MANUEL is patent. Single left renal artery with minimal atherosclerosis at the origin. 2 right renal arteries. The dominant superior renal artery is widely patent. The inferior accessory right renal artery is patent. There is no evidence of hemodynamically significant renal artery disease. Lung bases are clear. Small hiatal hernia. Gastric sleeve. Normal caliber small and large bowel. Small bowel anastomotic suture line in the midabdomen. The liver appears normal. Cholecystectomy. No pancreatic mass or ductal dilatation. No proximal atrophy. The spleen appears normal. No adrenal mass. There are nonobstructing calculi in the lower pole right kidney measuring 1000 Hounsfield units and 8.5 cm from posterior skin. No retroperitoneal adenopathy. There is a periumbilical hernia containing fat with a neck that measures 0.6 x 0.4 cm and a sac that measures 2.8 x 2.7 x 2.8 cm. Degenerative changes in the spine. CT/CT angio abdomen IMPRESSION: No evidence of hemodynamically significant renal artery stenosis. Left kidney stones. No hydronephrosis. Small fat-containing periumbilical hernia. Fleischner guidelines were followed.
[2022-05-24] MEDS: iohexoL 350 MG/ML 100 ML INFUS..BTL IV (08:40)
[2022-05-24 08:54] LABS: Blood Urea Nitrogen 13 mg/dL (9-16)
[2022-06-02 14:39] LABS: Creatinine POC 0.6 mg/dL (0.5-1.4); GFR POC > 60
== END 2022-05-24 07:19 | disposition home or self-care (01) ==
LOC: HO.CT 07:18
PROVIDERS: Visit Provider Surgery Vascular Surgery
DX: Q27.1 Congenital renal artery stenosis (principal); I70.1 Atherosclerosis of renal artery
CPT/HCPCS: 36415; 74175; 82565; 84520; Q9967

== ENCOUNTER → 2022-06-12 10:43 | Outpatient (BNVA) | payer OTHER, SELFPAY | PROVIDERS: PCP Physician Assistant; Visit Provider Surgery Vascular Surgery | DX: I70.1 Atherosclerosis of renal artery (principal); K42.9 Umbilical hernia without obstruction or gangrene | CPT/HCPCS: 99212 ==

== ENCOUNTER 2022-06-21 08:20 | Outpatient (REF) | payer OTHER, SELFPAY ==
[2022-06-21 09:24] LABS: Blood Urea Nitrogen 12 mg/dL (9-16); Estimated Glomerular Filt Rate > 60
== END 2022-06-21 08:21 | disposition home or self-care (01) ==
LOC: HO.LAB 08:20
PROVIDERS: PCP Physician Assistant; Visit Provider Psychiatry & Neurology Neurology
DX: R56.9 Unspecified convulsions (principal); Z86.73 Personal history of transient ischemic attack (TIA), and cerebral infarction without residual deficits
CPT/HCPCS: 36415; 82565; 84520

== ENCOUNTER 2022-06-26 08:09 | Outpatient (REF) | payer OTHER, SELFPAY ==
--- NOTE | ~2022-06-26 | CT_ITS ---
EXAMINATION: CT ANGIOGRAM HEAD CT ANGIOGRAM NECK CLINICAL INFORMATION: TIA COMPARISON: CT head 02/09/2020. TECHNIQUE: Initial noncontrast construction project administrator imaging of the head and neck was performed. Noncontrast head CT was also performed. Test bolus sequences followed by intravenous administration 70 mL of Omnipaque 350. Helical imaging was performed in the axial plane from the aortic arch to the skull vertex. Delayed postcontrast imaging of the head was also performed. The data was processed at the lead neurodiagnostic technologist's workstation for generation of MIP sequences. Angled MIPs and volume rendered reformatted images were also generated at an offline 3D workstation. Stenoses are assessed in accordance with NASCET criteria unless otherwise indicated. This CT examination was performed using dose optimization techniques as appropriate, variously including the following: *Automated exposure control *Adjustment of mA and/or kV according to patient size (this includes techniques or standardized protocols for targeted exams where dose is matched to indication/reason for exam; i.e. extremities or head) *Use of iterative reconstruction technique DLP: 2476 mGy-cm FINDINGS: CT HEAD: The ventricles and sulci are normal in size and configuration without significant volume loss or hydrocephalus. Stable patchy periventricular and deep white matter hypoattenuation, most suggestive of mild small vessel ischemic changes. Redemonstrated chronic lacunar infarct in the right caudate head and right bonds radiata. No territorial loss of cabrera-white differentiation. No acute intracranial hemorrhage or extra-axial fluid collection. Redemonstrated 4 mm falcotentorial lipoma. No significant mass effect or herniation pattern No pathologic intra-axial enhancement within limitations of CT or regional oligemia. Redemonstrated 7 mm linear hyperdensity within the right superior preseptal soft tissues, suspicious for a foreign body. Stable mild mucosal disease in the left sphenoid sinus. The mastoid air cells are well-aerated. Osseous structures are intact. CTA HEAD: The internal carotid arteries are patent, noting trace multifocal calcific plaque along the carotid siphons. The MCA vascular complexes are normal bilaterally. The CHANELL complexes are normal bilaterally. The intradural vertebral arteries are patent. The basilar artery is normal. The posterior cerebral arteries are widely patent. No proximal large vessel occlusion. No aneurysms and no high flow vascular malformations. No evidence of dural arteriovenous fistula. Timing of the contrast bolus allows assessment of the major dural venous sinuses, which all opacify normally CTA NECK: Suboptimal examination due to contrast bolus timing. Classic 3 vessel branching pattern of the aortic arch. Minimal calcific plaque along the descending thoracic aorta and origins of the left common carotid and brachiocephalic trunk. Origins of the great vessels are widely patent. The common carotid arteries are widely patent. The carotid bifurcations and bilateral internal carotid arteries are patent, noting trace calcific plaque at the right carotid bulb. The vertebral artery ostia are widely patent. Both vertebral arteries are widely patent throughout their extracranial cervical course. CT NECK: Small to moderate volume adenoidal tonsillar tissue. Symmetric prominence of the palatine tonsils for age, probably reactive. Elongated and ossified stylohyoid ligaments which can be correlated for signs of Shinnecock syndrome. Grossly unremarkable appearance of the aerodigestive tract. The salivary glands are unremarkable. The thyroid gland is unremarkable. No pathologically enlarged cervical chain lymph nodes. 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 Multilevel cervical spondylosis with varying degrees of moderate to severe neural foraminal stenosis but without high-grade spinal canal stenosis. The visualized lung apices and upper mediastinum are within normal limits. CT/CT angio head neck IMPRESSION: 1. No acute intracranial abnormality including hemorrhage, mass effect, hydrocephalus, or acute territorial edematous infarction. 2. Redemonstrated chronic lacunar infarct in the right caudate head and bonds radiata on a background of chronic microangiopathy. 3. No high-grade stenosis or large vessel occlusion in the head or neck. Elongated ossified stylohyoid ligaments which can be correlated for signs of Shinnecock syndrome. 4. Redemonstrated 7 mm linear hyperdensity within the right superior preseptal soft tissues suspicious for foreign body.
[2022-06-26] MEDS: iohexoL 350 MG/ML 100 ML INFUS..BTL IV (08:59)
== END 2022-06-26 08:10 | disposition home or self-care (01) ==
LOC: HO.CT 08:09
PROVIDERS: PCP Physician Assistant; Visit Provider Psychiatry & Neurology Neurology
DX: G45.9 Transient cerebral ischemic attack, unspecified (principal)
CPT/HCPCS: 70496; 70498; Q9967

== ENCOUNTER → 2022-06-28 10:57 | Outpatient (BNVA) | payer OTHER, SELFPAY | PROVIDERS: PCP Physician Assistant; Visit Provider Physician Assistant Surgical | DX: E66.01 Morbid (severe) obesity due to excess calories (principal); Z68.42 Body mass index [BMI] 45.0-49.9, adult; L98.7 Excessive and redundant skin and subcutaneous tissue; K42.9 Umbilical hernia without obstruction or gangrene; Z98.84 Bariatric surgery status | CPT/HCPCS: 99212 ==

== ENCOUNTER → 2022-08-14 14:15 | Outpatient (BNVA) | payer OTHER, SELFPAY | PROVIDERS: PCP Physician Assistant; Referring Provider Physician Assistant; Visit Provider Dietitian, Registered | DX: E66.9 Obesity, unspecified (principal) | CPT/HCPCS: 97803 ==

== ENCOUNTER → 2022-09-03 09:04 | Outpatient (BNVA) | payer OTHER, SELFPAY | PROVIDERS: PCP Physician Assistant; Referring Provider Physician Assistant; Visit Provider Internal Medicine | DX: I77.1 Stricture of artery (principal); I10 Essential (primary) hypertension; I51.7 Cardiomegaly; R94.39 Abnormal result of other cardiovascular function study | CPT/HCPCS: 93005; 99212 ==

== ENCOUNTER 2022-09-18 11:22 | Outpatient (REF) | payer OTHER, SELFPAY ==
[2022-09-18 12:18] LABS: Hemoglobin 12.8 g/dl (14.0-18.0); Mean Corpuscular HGB Conc 32.8 g/dl (31.0-36.0); Mean Corpuscular Hemoglobin 29.2 pg (27.0-33.0); Mean Corpuscular Volume 88.8 fL (80.0-98.0); Mean Platelet Volume 9.9 fL (9.4-12.4); Platelet Count 236 X10*3/uL (160-400); Red Blood Count 4.39 X10*6/uL (4.60-5.80); White Blood Count 4.8 X10*3/uL (4.8-10.8)
[2022-09-18 13:00] LABS: Creatinine Urine 99.21 mg/dL; Microalbum/Creatinine Ratio Ur 21.1 ug/mg cr
[2022-09-18 13:40] LABS: Alanine Aminotransferase 18 U/L (0-40); Albumin Level 3.9 g/dL (3.5-5.0); Alkaline Phosphatase 60 U/L (39-117); Anion Gap 11 (12-20); Aspartate Amino Transferase 18 U/L (5-37); Bilirubin Total 0.9 mg/dL (0.0-1.0); Blood Urea Nitrogen 15 mg/dL (9-16); Calcium 9.1 mg/dL (8.4-10.2); Carbon Dioxide 28 mmol/L (22-29); Chloride 109 mmol/L (96-108); Cholesterol 174 mg/dL; Estimated Glomerular Filt Rate > 60; Glucose Fasting 84 mg/dL (60-99); HDL Cholesterol 64 mg/dL; LDL Cholesterol Calculated 101 mg/dl; Potassium 3.8 mmol/L (3.3-5.1); Sodium 144 mmol/L (135-145); TSH reflex Free T4 0.94 uIU/mL (0.32-4.0); Total Protein 6.7 g/dL (6.5-8.0); Triglycerides 47 mg/dL
== END 2022-09-18 11:23 | disposition home or self-care (01) ==
LOC: HO.LAB 11:22
PROVIDERS: PCP Physician Assistant; Visit Provider Physician Assistant
DX: E66.01 Morbid (severe) obesity due to excess calories (principal); I10 Essential (primary) hypertension
CPT/HCPCS: 36415; 80053; 80061; 82043; 84443; 85027

== ENCOUNTER → 2022-10-12 09:58 | Outpatient (BNVA) | payer OTHER, SELFPAY | PROVIDERS: Visit Provider Dietitian, Registered | DX: E66.9 Obesity, unspecified (principal); Z68.33 Body mass index [BMI] 33.0-33.9, adult | CPT/HCPCS: 97803 ==

== ENCOUNTER 2022-12-06 10:02 | Outpatient (AMB) | payer OTHER, SELFPAY ==
--- NOTE | 2022-12-06 10:13 | A.OFFPC_ITS ---
Vital Signs 12/06/22 10:14 Height 5 ft 4 in Weight 199 lb 4 oz BMI 34.2 BP 132/80 Blood Pressure Location Lt brachial Position Sitting Pulse 56 Pulse Source Pulse Oximeter Pulse Oximetry (%) 96 Oxygen Delivery Method Room Air Intake Visit Reasons: Follow up HTN Allergies doxazosin Adverse Reaction (Intermediate, Verified 12/06/22 10:20) Fatigued Medication List - Last Reconciled 12/06/22 by Kevin Orozco PA-C acetaminophen ER 650 mg PO Q12H 30 days amlodipine-benazepril 10-40 mg 1 cap PO DAILY atorvastatin (Lipitor) 40 mg PO DAILY calcium carbonate 500 mg PO DAILY carvedilol (Coreg) 6.25 mg PO BID cholecalciferol (vitamin D3) (Vitamin D3) 25 mcg PO DAILY cyclobenzaprine 10 mg PO BEDTIME 90 days diclofenac sodium 1% 4 grams topical TID 1 month donepezil 5 mg PO DAILY hydrochlorothiazide 25 mg PO DAILY miscellaneous medical supply 1 ea miscellaneous .nightly 99 days multivitamin 1 tab PO DAILY Tobacco use date assessed: 08/06/22 Dental Screening Dental Screen Date: 12/06/22 Did you have a dental visit in the last 12 months?: No Did you have a dental problem in the last 6 months where you did not have access to dental care?: No Was dental information given to patient?: Patient has dentist HPI Follow up HTN HPI Details Patient is a 62 y/o M here today for a f/u visit. ??? Patient has a past medical history significant for morbid obesity, hyper tension, left ventricular hypertrophy, right subclavian artery stenosis, PABLO, high cholesterol. . Arterial disease: Recent CTA chest showing left circumflex artery with 70% stenosis. His Lipitor was increased at the time and cholesterol has been approved. Unfortunately complaining of bilateral lower extremity myalgias worse at night that have been intolerable has been using cyclobenzaprine without much relief. Could be related to cholesterol medication thus will transition to Crestor. s/p gastric sleeve :? has lost a significant amount of weight and continues follow-up with weight management.? Has gained back some weight.? Continues to follow weight management program . he is concerned about his eyesight skin .. HTN:?Today blood pressure in office normal, though on recheck elevated,.? He does reported home blood pressures are generally stable though sometimes does have high readings. Recently recieved a US renal without evidence on CECI or adrenal mass. Continues on multiple med for his Blood pressure.? He reports he has seen vascular surgeon in the past though was not candidate for renal artery stent placement.? .. PABLO:? Continues to follow pulmonology .? It seems he needs a repeat home sleep study to evaluate the further need for CPAP machine at night. [facility] Medical History (Updated 12/06/22 @ 10:31 by Kevin Orozco PA-C) Binge-eating disorder, in full remission, moderate Cardiomegaly Cholecystectomy planned COVID-19 vaccine series completed DJD (degenerative joint disease) GERD (gastroesophageal reflux disease) High cholesterol Left atrial dilation Morbid obesity Shoulder pain, left Sleep apnea with use of continuous positive airway pressure (CPAP) Subclavian artery stenosis, right Surgical History History of cholecystectomy History of umbilical hernia repair Hx of cardiac cath Hx of colonoscopy S/P laparoscopic sleeve gastrectomy Family History Father H/O ETOH abuse Hypertension Alzheimers disease Substance use disorder Mental health disorder Mother Medical history unknown Brother Hypertension Diabetes Social History Housing: Apartment Are you a primary critical care technician to a significant other at home: No Do you presently have visiting nurse or other home services: No Alcohol intake: never Patient Tobacco Use Status: Former Tobacco user Quit Date: 20 yrs ago e-Cigarette/Vaping Use: Never Used Second Hand Smoke Exposure: No service: No Current occupational status: retired Current occupational exposures/hazards: No Cognitive needs: No Hearing needs: No Vision needs: Yes Questionnaire PHQ-9 Over the last 2 weeks, how often have you been bothered by any of the following problems? 1. Little interest or pleasure in doing things: not at all 2. Feeling down, depressed, or hopeless: not at all 3. Trouble falling or staying asleep, or sleeping too much: not at all 4. Feeling tired or having little energy: not at all 5. Poor appetite or overeating: not at all 6. Feeling bad about yourself - or that you are a failure or have let yourself or your family down: not at all 7. Trouble concentrating on things, such as reading the newspaper or watching television: not at all 8. Moving or speaking so slowly that other people could have noticed. Or the opposite - being so fidgety or restless that you have been moving around a lot more than usual: not at all 9. Thoughts that you would be better off or of hurting yourself in some way: not at all Total score: 0 Depression Screening Interpretation: Negative 28625 - PHQ-9 Billing: Yes Source: Developed by Drs. Michele Ding, Rianna Ceja, Dario Haddad and colleagues, with an educational mir from [employer]. Thrive Questionnaire Date Thrive assessed: 08/06/22 I am a: Patient What is your living situation today?: I have a steady place to live Within the past 12 months, did the food you bought not last and you didn't have the money to get more?: Never true Within the past 12 months, did you worry whether your food would run out before you got money to buy more?: Never true Currently or been in a relationship where the following occur: no concerns reported AUDIT C Alcohol Use Questionnaire (AUDIT-C) 1. How often do you have a drink containing alcohol?: Never 3. How often do you have six or more drinks on one occasion?: Never Total Score: 0 FREDA-7 AMB Questionnaire FREDA-7 Date FREDA - 7 assessed: 08/06/22 Feeling nervous, anxious, or on edge: 0 = Not at all Not being able to stop or control worryin = Not at all Worrying too much about different things: 0 = Not at all Trouble relaxin = Not at all Being so restless that it is hard to sit still: 0 = Not at all Becoming easily annoyed or irritable: 0 = Not at all Feeling afraid as if something awful might happen: 0 = Not at all Total FREDA-7 score (0-4 normal; 5-9 mild; 10-14 moderate; 15-21 severe): 0 Source: Developed by Drs. Michele Ding, Rianna Ceja, aDrio Haddad and colleagues, with an educational mir from [employer]. FREDA-7 Assessment Billing FREDA-7 Assessment Tool: FREDA-7 Assessment 35924 Review of Systems Const Denies headache(s) Eyes Denies loss of vision ENT Denies vertigo, Denies dizziness, Denies headache(s) and Denies sore throat Card Denies chest pain, Denies leg edema and Denies lightheadedness Resp Denies cough, Denies hemoptysis and Denies wheezing GI Denies abdominal pain, Denies melena, Denies constipation, Denies diarrhea and Denies vomiting Denies dysuria, Denies urinary frequency and Denies urinary urgency Musc Denies arthralgias, Denies joint swelling, Denies numbness and Denies tingling Neuro Denies Abnormal speech present, Denies behavioral changes, Denies vertigo, Satnam es dizziness, Denies headache(s), Denies loss of vision, Denies memory loss, Denies numbness and Denies tingling Psych Denies anxiety, Denies behavioral changes, Denies depression, Denies memory loss and Denies panic attacks Italo/Lymph Denies easy bleeding and Denies easy bruising Aller/Immun Denies wheezing Physical exam (Primary Care) Vital Signs: Last Vital Signs Pulse 56 12/06/22 10:14 BP 132/80 12/06/22 10:14 Pulse Ox 96 12/06/22 10:14 Oxygen Delivery Method Room Air 12/06/22 10:14 BMI result Body Mass Index 34.2 Tobacco/Smoking Status: Tobacco use Status Tobacco use date assessed 08/06/22 12/06/22 10:18 Patient Tobacco Use Status Former Tobacco user 12/06/22 10:18 Tobacco use type 09/03/22 09:31 e-Cigarette/Vaping Use Never Used 12/06/22 10:18 PHQ-9: PHQ-9 Score PHQ-9: Total score 0 12/06/22 10:21 Depression Screening Interpretation: Negative Thrive Assessment: Date of Thrive Assessment Date Thrive assessed 08/06/22 12/06/22 10:18 Currently or been in a relationship where the following occur: no concerns reported Const General: healthy appearing, no acute distress, alert and awake Nutritional Appearance: well nourished Orientation/consciousness: oriented to person, oriented to place and oriented to time HENMT Ears: TM's normal bilaterally General nose exam: Normal nasal mucous membranes and turbinates present Eyes Conjunctivae: conjunctivae normal Sclerae: sclerae normal Pupils: Equal, round and reactive pupils present Neck Neck: Yes no lymphadenopathy and Yes no JVD Thyroid: Thyroid normal Carotids: no bruits Resp Effort & Inspection: normal respiratory effort and not tachypneic Auscultation: no crackles, no rales, no rhonchi and no wheezes Cardio Rate: regular rate Rhythm: regular rhythm Heart sounds: no murmurs and normal S1 and S2 GI Palpation (GI): Soft to palpation, nontender, no hepatomegaly and no splenomegaly Auscultation: normal bowel sounds Skin General skin exam: no rashes or lesions noted and dry skin Neuro General: oriented to person, oriented to place and oriented to time Cranial nerves: Yes Equal, round and reactive pupils present Speech: No Abnormal speech present Gait exam (Neuro): Normal gait present Motor exam (neuro): no tremor noted Extrem Right upper extremity: full ROM Left upper extremity: full ROM Right lower extremity: full ROM; no edema Left lower extremity: full ROM; no edema Psych Mental Status: mental status grossly normal Speech and movement: Normal speech and movement present Affect: normal affect Attitude: cooperative Thought process: Normal thought process present Assessment and Plan Assessment & Plan (1) Essential (primary) hypertension: Code(s): I10 - Essential (primary) hypertension Plan: Patient's blood pressure acceptable today in office. Will continue current dose of antihypertensive medication with goal blood pressure to remain below 140/90 (2) CAD (coronary artery disease): Code(s): I25.10 - Atherosclerotic heart disease of [place] coronary artery without angina pectoris Qualifiers: Associated angina: with stable angina Coronary Disease-Associated Artery/Lesion type: [place] artery [place] vs. transplanted heart: [place] heart Qualified Code(s): I25.118 - Atherosclerotic heart disease of [place] coronary artery with other forms of angina pectoris Plan: Patient most recent CT of chest showing 70% stenosis of the left circumflex. Will continue to manage risk factors such as blood pressure, cholesterol ect.. Goal LDL to be optimally below 70 (3) Obese: Code(s): E66.9 - Obesity, unspecified Qualifiers: Body mass index: BMI 33.0-33.9 Obesity classification: adult class 1 (BMI 30 - 34.9) Obesity type: due to excess calories Serious obesity comorbidity presence: with serious comorbidity Qualified Code(s): E66.09 - Other obesity due to excess calories; Z68.33 - Body mass index [BMI] 33.0-33.9, adult Plan: Patient does understand his BMI is over 30 will work on being more physically active and adapting to better eating habits to reduce his weight (4) Myalgia: Code(s): M79.10 - Myalgia, unspecified site Plan: Reports intolerable bilateral lower extremity myalgias worse at night. Could be due to statin therapy. He will transition to different statin Orders: Orders Comprehensive [place]. Panel Fast Today I25.118 - Atherosclerotic heart disease of [place] coronary artery with other forms of angina pectoris Lipid Panel Today I25.118 - Atherosclerotic heart disease of [place] coronary artery with other forms of angina pectoris Microalbumin, Random (w Creat) Today I10 - Essential (primary) hypertension Prostate Specific Antigen Scr Today I10 - Essential (primary) hypertension, Z12.5 - Encounter for screening for malignant neoplasm of prostate Medications: New rosuvastatin (Crestor) 20 mg PO DAILY 90 tabs 1RF I25.10 - Atherosclerotic heart disease of [place] coronary artery without angina pectoris magnesium oxide 400 mg PO DAILY 90 tabs 1RF M79.10 - Myalgia, unspecified site Discontinued atorvastatin (Lipitor) Discontinued Reason: Doctor's Order 40 mg PO DAILY 90 tabs 1RF E78.00 - Pure hypercholesterolemia, unspecified Coding Level of Care Code Est Pt Level 4 (57552) Diagnoses Essential (primary) hypertension I10 CAD (coronary artery disease) I25.118 Associated angina: with stable angina Coronary Disease-Associated Artery/Lesion type: [place] artery [place] vs. transplanted heart: [place] heart Obese E66.09; Z68.33 Body mass index: BMI 33.0-33.9 Obesity classification: adult class 1 (BMI 30 - 34.9) Obesity type: due to excess calories Serious obesity comorbidity presence: with serious comorbidity Myalgia M79.10 Additional Codes FREDA-7 Assessment Billing - FREDA-7 Assessment Tool: FREDA-7 Assessment 03803 ([id number])
[2022-12-06 10:14] VITALS: BP 132/80; PULSE 56; O2SAT 96; BMI 34.2
== END 2022-12-06 10:43 | disposition home or self-care (01) ==
PROVIDERS: PCP Physician Assistant; Visit Provider Physician Assistant
DX: I10 Essential (primary) hypertension (principal); I25.118 Atherosclerotic heart disease of native coronary artery with other forms of angina pectoris; E66.09 Other obesity due to excess calories; Z68.33 Body mass index [BMI] 33.0-33.9, adult; M79.10 Myalgia, unspecified site
CPT/HCPCS: 99214

== ENCOUNTER 2023-02-21 08:43 | Outpatient (AMB) | payer OTHER, SELFPAY ==
--- NOTE | 2023-02-21 08:58 | MHC.OFFVIS ---
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 Name: Baljit [id number] Accompanied by: Self / Same As Patient Allergies doxazosin Adverse Reaction (Intermediate, Verified 02/21/23 09:01) Fatigued Medication List - Last Reconciled 02/21/23 by Omero Cruz MD acetaminophen ER 650 mg PO Q12H 30 days amlodipine-benazepril 10-40 mg 1 cap PO DAILY calcium carbonate 500 mg PO DAILY carvedilol (Coreg) 6.25 mg PO BID cholecalciferol (vitamin D3) (Vitamin D3) 25 mcg PO DAILY cyclobenzaprine 10 mg PO BEDTIME 90 days diclofenac sodium 1% 4 grams topical TID 1 month donepezil 5 mg PO DAILY hydrochlorothiazide 25 mg PO DAILY magnesium oxide 400 mg PO DAILY miscellaneous medical supply 1 ea miscellaneous .nightly 99 days multivitamin 1 tab PO DAILY rosuvastatin (Crestor) 20 mg PO DAILY HPI HPI Comments History of Present Illness Details Uriel returns for follow-up regarding vascular disease as well as hypertension. He has a history of right subclavian stenosis and weak right upper extremity pulse, present for a long time. However, he does not have any vascular symptoms at all. He also has hypertension. Morbid obesity and he did undergo bariatric surgery and lost weight. Overall, doing fine. He stated that he was getting some chest pains while walking on the treadmill. However, currently denies any such symptoms and states he feels fine. He underwent coronary CTA for further evaluation. [facility] Medical History (Updated 12/06/22 @ 10:31 by Kevin Orozco PA-C) Left atrial dilation COVID-19 vaccine series completed Cardiomegaly Binge-eating disorder, in full remission, moderate DJD (degenerative joint disease) GERD (gastroesophageal reflux disease) Sleep apnea with use of continuous positive airway pressure (CPAP) Morbid obesity Subclavian artery stenosis, right High cholesterol Shoulder pain, left Cholecystectomy planned Surgical History S/P laparoscopic sleeve gastrectomy Hx of colonoscopy History of umbilical hernia repair History of cholecystectomy Hx of cardiac cath Family History Father H/O ETOH abuse Hypertension Alzheimers disease Substance use disorder Mental health disorder Mother Medical history unknown Brother Hypertension Diabetes Social History Housing: Apartment Are you a primary career placement specialist to a significant other at home: No Do you presently have visiting nurse or other home services: No Alcohol intake: never Patient Tobacco Use Status: Former Tobacco user Quit Date: 20 yrs ago e-Cigarette/Vaping Use: Never Used Second Hand Smoke Exposure: No service: No Current occupational status: retired Current occupational exposures/hazards: No Cognitive needs: No Hearing needs: No Vision needs: Yes Review of Systems Const Denies weakness ENT Denies dizziness Card Denies chest pain, Denies chest pain with activity, Denies syncope, Denies rapid heart rate, Denies pedal edema, Denies edema, Denies leg edema, Denies lightheadedness, Denies palpitations, Denies dyspnea, Denies dyspnea on exertion and Denies orthopnea Resp Denies cough, Denies dyspnea and Denies dyspnea on exertion GI Denies hematochezia and Denies change in stool character Musc Denies abnormal gait, Denies muscle cramps, Denies muscle weakness, Denies numbness, Denies radiating pain into limb and Denies tingling Neuro Denies abnormal gait, Denies dizziness, Denies syncope, Denies numbness, Denies tingling and Denies weakness Endo Denies palpitations Physical Exam Vital Signs: Last Vital Signs Pulse 55 02/21/23 08:59 BP 140/62 H 02/21/23 08:59 BMI result Body Mass Index 35.1 Const General: comfortable and no acute distress Orientation/consciousness: patient oriented x3 HEENT Other: Unremarkable Head: Yes normal to inspection Neck Neck: Yes normal visual inspection Chest Chest palpation & inspection: normal inspection of the chest Resp Auscultation: clear to auscultation bilaterally Cardio Palpation: normal PMI Heart sounds: S1 normal heart sound present, S2 normal heart sound present, no gallops, no murmurs and no rubs GI Palpation (GI): Soft to palpation Back/Spine/Pelvis Other: unremarkable Skin General skin exam: no rashes or lesions noted Neuro General: patient oriented x3 Extrem General: Yes normal to inspection Psych Mental Status: mental status grossly normal Assessment & Plan Assessment & Plan (1) CAD (coronary artery disease): Code(s): I25.10 - Atherosclerotic heart disease of [place] coronary artery without angina pectoris Qualifiers: Coronary Disease-Associated Artery/Lesion type: [place] artery [place] vs. transplanted heart: [place] heart Associated angina: with stable angina Qualified Code(s): I25.118 - Atherosclerotic heart disease of [place] coronary artery with other forms of angina pectoris Plan: Myocardial perfusion imaging study from 04/2021 reported to have mild intensity apical ischemia. Cardiac catheterization [place] 2014-angiographically normal coronary arteries. Coronary CTA performed 2022 including FFR. He does have stenosis in LAD and circumflex, but not considered to be hemodynamically significant. Also reports a patent foramina ovale. In the past, had reports of chest pain but currently denies any symptoms at all. Treat for stable CAD. Aspirin statins. He also has intolerance other lipids are not ideal. We can start Repatha. (2) Essential (primary) hypertension: Code(s): I10 - Essential (primary) hypertension Plan: Borderline blood pressures. On amlodipine, benazepril, carvedilol, hydrochlorothiazide. Prefer to check blood pressures on the left side due to weak pulses on the right side. (3) LVH (left ventricular hypertrophy): Code(s): I51.7 - Cardiomegaly Plan: In the last echocardiogram, moderate left ventricular hypertrophy noted. Could be related to poorly controlled hypertension. No heart failure symptoms or signs. (4) Subclavian artery stenosis, right: Code(s): I77.1 - Stricture of artery Plan: No clinical symptoms. Continue aspirin. Cardiac [id number] distal right subclavian artery had chronic total occlusion with reconstitution distally, status post intervention and stenting. Coding Level of Care Code Est Pt Level 4 (23906) Diagnoses Coronary artery disease of [place] artery of [place] heart with stable angina pectoris I25.118 Coronary Disease-Associated Artery/Lesion type: [place] artery [place] vs. transplanted heart: [place] heart Associated angina: with stable angina Essential (primary) hypertension I10 LVH (left ventricular hypertrophy) I51.7 Subclavian artery stenosis, right I77.1
[2023-02-21 08:59] VITALS: BP 140/62; PULSE 55; BMI 35.1
== END 2023-02-21 09:24 | disposition home or self-care (01) ==
PROVIDERS: Visit Provider Internal Medicine
DX: I25.118 Atherosclerotic heart disease of native coronary artery with other forms of angina pectoris (principal); I10 Essential (primary) hypertension; I51.7 Cardiomegaly; I77.1 Stricture of artery
CPT/HCPCS: 99214

== ENCOUNTER → 2023-02-21 08:43 | Outpatient (BNVA) | payer OTHER, SELFPAY | PROVIDERS: Visit Provider Internal Medicine | DX: I25.118 Atherosclerotic heart disease of native coronary artery with other forms of angina pectoris (principal); I10 Essential (primary) hypertension; I51.7 Cardiomegaly; I77.1 Stricture of artery | CPT/HCPCS: 99212 ==

== ENCOUNTER 2023-03-11 08:54 | Outpatient (AMB) | payer OTHER, SELFPAY ==
[2023-03-11 08:57] VITALS: BP 138/56; PULSE 63; O2SAT 92; BMI 34.8
--- NOTE | 2023-03-11 08:57 | MHC.PC.OV ---
Vital Signs 03/11/23 08:57 Height 5 ft 4 in Weight 203 lb BMI 34.8 BP 138/56 L Blood Pressure Location Lt brachial Position Sitting Pulse 63 Pulse Source Pulse Oximeter Pulse Oximetry (%) 92 Oxygen Delivery Method Room Air Intake Visit Reasons: PE Professor Of Biostatistics Required: Yes Professor Of Biostatistics Language: Placement Officer Name: LILLY [id number] Information Interpreted: non-clinical & clinical Accompanied by: Self / Same As Patient Allergies doxazosin Adverse Reaction (Intermediate, Verified 03/11/23 09:21) Fatigued Medication List - Last Reconciled 03/11/23 by Kevin Orozco PA-C acetaminophen ER 650 mg PO Q12H 30 days amlodipine-benazepril 10-40 mg 1 cap PO DAILY calcium carbonate 500 mg PO DAILY carvedilol (Coreg) 6.25 mg PO BID cholecalciferol (vitamin D3) (Vitamin D3) 25 mcg PO DAILY cyclobenzaprine 10 mg PO BEDTIME 90 days diclofenac sodium 1% 4 grams topical TID 1 month donepezil 5 mg PO DAILY evolocumab (Repatha Bucky) 140 mg subcut Q2W hydrochlorothiazide 25 mg PO DAILY magnesium oxide 400 mg PO DAILY miscellaneous medical supply 1 ea miscellaneous .nightly 99 days multivitamin 1 tab PO DAILY rosuvastatin (Crestor) 20 mg PO DAILY Tobacco use date assessed: 08/06/22 Dental Screening Dental Screen Date: 03/11/23 Did you have a dental visit in the last 12 months?: Yes Did you have a dental problem in the last 6 months where you did not have access to dental care?: No Was dental information given to patient?: Patient has dentist HPI PE HPI Details Patient is a 62 y/o M here today for a routine annual physical. ??? Patient has a past medical history significant for morbid obesity, hypertension, left ventricular hypertrophy, right subclavian artery stenosis, PABLO, high cholesterol. Concerns--> reports having difficulty sleeping- feels he has insomnia. Also report having alot of cramps in his legs worse at night. . Arterial disease: Recent CTA chest showing left circumflex artery with 70% stenosis (. Most recent LDL of 101. Has been unable to tolerate statin therapy due to myalgias. Has followed up with his pastry cook helper recommended started Repatha. When asked about using cholesterol pills he does report using them on a daily basis now. Unfortunately continues to report myalgias worse at night. .. HTN:?Today blood pressure in office acceptable.. He does reported home blood pressures are generally stable though sometimes does have high readings. Recently recieved a US renal without evidence on CECI or adrenal mass. Continues on multiple med for his Blood pressure.? .. PABLO:? Continues to follow pulmonology .? It seems he needs a repeat home sleep study to evaluate the further need for CPAP machine at night. Colonoscopy: Colonoscopy done in 2018 - normal repeat 10 years Vaccine: UTD with COVID vaccine, up-to-date with shingles vaccine, TDap , PVC , need FLu vaccine- considering at this time. Laboratory Tests 01/19/21 05/30/21 06/05/21 11:24 09:37 12:35 RBC Hgb Creatinine Random Glucose Hemoglobin A1c % 5.1 Cholesterol 195 LDL Cholesterol, C alc 134 TSH Urine Microalbumin 270.0 COVID-19 (EMILEE) Negative 06/07/21 06/07/21 06/21/22 05:14 05:14 08:30 RBC 4.27 L Hgb 12.4 L Creatinine 0.73 Random Glucose 124 H Hemoglobin A1c % Cholesterol LDL Cholesterol, C alc TSH Urine Microalbumin COVID-19 (EMILEE) 09/18/22 09/18/22 11:50 11:50 RBC 4.39 L Hgb 12.8 L Creatinine 0.74 Random Glucose Hemoglobin A1c % Cholesterol 174 LDL Cholesterol, C alc 101 TSH 0.94 Urine Microalbumin COVID-19 (EMILEE) [facility] Medical History (Updated 12/06/22 @ 10:31 by Kevin Orozco PA-C) Left atrial dilation COVID-19 vaccine series completed Cardiomegaly Binge-eating disorder, in full remission, moderate DJD (degenerative joint disease) GERD (gastroesophageal reflux disease) Sleep apnea with use of continuous positive airway pressure (CPAP) Morbid obesity Subclavian artery stenosis, right High cholesterol Shoulder pain, left Cholecystectomy planned Surgical History S/P laparoscopic sleeve gastrectomy Hx of colonoscopy History of umbilical hernia repair History of cholecystectomy Hx of cardiac cath Family History Father H/O ETOH abuse Hypertension Alzheimers disease Substance use disorder Mental health disorder Mother Medical history unknown Brother Hypertension Diabetes Social History Housing: Apartment Are you a primary healthcare insurance sales agent to a significant other at home: No Do you presently have visiting nurse or other home services: No Alcohol intake: never Patient Tobacco Use Status: Former Tobacco user Quit Date: 20 yrs ago e-Cigarette/Vaping Use: Never Used Second Hand Smoke Exposure: No service: No Current occupational status: retired Current occupational exposures/hazards: No Cognitive needs: No Hearing needs: No Vision needs: Yes Questionnaire Thrive Questionnaire Date Thrive assessed: 08/06/22 FREDA-7 AMB Questionnaire FREDA-7 Date FREDA - 7 assessed: 08/06/22 Source: Developed by Drs. Michele Ding, Rianna Ceja, Dario Haddad and colleagues, with an educational mir from [employer]. Review of Systems Const Denies body aches, Denies chills, Denies excessive sweating, Denies fatigue, Denies fever(s) and Denies headache(s) Eyes Denies blurry vision ENT Denies dysphagia, Denies vertigo, Denies dizziness, Denies headache(s), Denies hearing loss and Denies tinnitus Card Denies chest pain, Denies chest pain with activity, Denies syncope, Denies irregular heart rhythm and Denies dyspnea Resp Denies chest congestion, Denies cough, Denies hemoptysis, Denies dyspnea and Denies wheezing GI Denies abdominal pain, Denies melena, Denies hematochezia, Denies coffee ground emesis, Denies dysphagia, Denies diarrhea, Denies nausea and Denies vomiting Denies difficulty urinating, Denies dysuria, Denies urinary frequency, Denies urinary hesitancy and Denies urinary urgency Musc Details: + myalgias Reports back pain, Denies arthralgias, Denies limited range of motion, Denies muscle cramps and Denies muscle weakness Skin/Breast Denies rash and Denies skin ulcer Neuro Denies Abnormal speech present, Denies confusion, Denies vertigo, Denies dizziness, Denies syncope, Denies headache(s), Denies memory loss and Denies seizure-like activity Psych Denies anxiety, Denies confusion, Denies depression, Denies memory loss, Denies panic attacks and Denies paranoia Endo Denies excessive sweating, Denies fatigue, Denies flushing, Denies polydipsia and Denies polyuria Aller/Immun Denies wheezing Physical exam (Primary Care) Vital Signs: Last Vital Signs Pulse 63 03/11/23 08:57 BP 138/56 L 03/11/23 08:57 Pulse Ox 92 03/11/23 08:57 Oxygen Delivery Method Room Air 03/11/23 08:57 BMI result Body Mass Index 34.8 BMI Assessment/Plan discussion: High Tobacco/Smoking Status: Tobacco use Status Tobacco use date assessed 08/06/22 03/11/23 08:57 Patient Tobacco Use Status Former Tobacco user 03/11/23 08:57 Tobacco use type 09/03/22 09:31 e-Cigarette/Vaping Use Never Used 03/11/23 08:57 Thrive Assessment: Date of Thrive Assessment Date Thrive assessed 08/06/22 03/11/23 08:57 Const Other: Morbidly obese General: cooperative, comfortable, no acute distress, alert and awake; No confusion Orientation/consciousness: oriented to person, oriented to place, patient oriented x3 and No confusion HENMT Head: Yes normocephalic Ears: external ears normal and TM's normal bilaterally Face and sinus: No sinus tenderness Mouth: Normal oral and palatal mucosa present and tongue normal Teeth and gingiva: dentition normal and gingiva normal Throat: Yes posterior oropharynx normal, Yes tonsils normal and Yes uvula midline Eyes Conjunctivae: conjunctivae normal Sclerae: sclerae normal Pupils: Equal, round and reactive pupils present EOM: EOMs intact bilaterally Direct Ophthalmoscopy: No no photophobia Neck Neck: Yes no lymphadenopathy, No tender and Yes no JVD Thyroid: Thyroid normal Carotids: no bruits Chest Chest palpation & inspection: no tenderness Resp Effort & Inspection: normal respiratory effort, no audible wheezes, not labored and no stridor Auscultation: no crackles, no rales, no rhonchi and no wheezes Cardio Jugular venous distension: no JVD Rate: regular rate, not bradycardic and not tachycardic Rhythm: regular rhythm Bruits: no carotid bruits Peripheral pulses: Peripheral pulses 2+ throughout GI Inspection: Yes normal to inspection, No abdominal wall ecchymosis and No visible herniation Palpation (GI): Soft to palpation, nontender, no guarding, not rigid and No hepatosplenomegaly present Auscultation: normoactive bowel sounds General: Yes no CVA tenderness Back/Spine/Pelvis Back: no CVA tenderness and No back tenderness Cervical Spine: cervical ROM normal Thoracic/Lumbar Spine: thoracic and lumbar spine normal to inspection, straight leg raise negative bilaterally, No thoraco-lumbar ROM limited and No lumbar spinal tenderness Skin Lesions: no lesions Rashes: no rashes Wounds: no wounds Neuro General: oriented to person, oriented to place, patient oriented x3, CN's II-XI intact bilaterally and No confusion Cranial nerves: Yes Equal, round and reactive pupils present and Yes Normal accommodation reflex present Cognition (Neuro): normal cognition Speech: No Abnormal speech present Gait exam (Neuro): Normal gait present Motor exam (neuro): 5/5 motor strength present throughout Extrem Right upper extremity: full ROM; no cyanosis Left upper extremity: full ROM; no cyanosis Right lower extremity: no edema Left lower extremity: no edema Psych Appearance: grossly normal Mental Status: mental status grossly normal Affect: normal affect Attitude: cooperative Thought process: Normal thought process present Assessment and Plan Assessment & Plan (1) Annual physical exam: Code(s): Z00.00 - Encounter for general adult medical examination without abnormal findings (2) Essential (primary) hypertension: Code(s): I10 - Essential (primary) hypertension Plan: Patient's blood pressure acceptable today in office. Will continue current dose of antihypertensive medication with goal blood pressure to remain below 140/90 (3) CAD (coronary artery disease): Code(s): I25.10 - Atherosclerotic heart disease of [place] coronary artery without angina pectoris Qualifiers: Coronary Disease-Associated Artery/Lesion type: [place] artery [place] vs. transplanted heart: [place] heart Associated angina: with stable angina Qualified Code(s): I25.118 - Atherosclerotic heart disease of [place] coronary artery with other forms of angina pectoris Plan: Patient most recent CT of chest showing 70% stenosis of the left circumflex. Will continue to manage risk factors such as blood pressure, cholesterol ect.. Most recent LDL suboptimal. Has been started on Repatha though is unclear if he has been taking the injections. He reports taking the Crestor 20 mg daily though continues to report intolerable muscle cramps at night. Goal LDL to be optimally below 70 (4) Obese: Code(s): E66.9 - Obesity, unspecified Qualifiers: Obesity type: due to excess calories Obesity classification: adult class 1 (BMI 30 - 34.9) Serious obesity comorbidity presence: with serious comorbidity Body mass index: BMI 33.0-33.9 Qualified Code(s): E66.09 - Other obesity due to excess calories; Z68.33 - Body mass index [BMI] 33.0-33.9, adult Plan: Patient does understand his BMI is over 30 will work on being more physically active and adapting to better eating habits to reduce his weight (5) Insomnia: Code(s): G47.00 - Insomnia, unspecified Qualifiers: Insomnia type: primary Qualified Code(s): F51.01 - Primary insomnia Plan: Reports having a lot of trouble sleeping. He is willing to try low-dose Lopid M on a p.r.n. basis for top nights getting to sleep. Otherwise advised on the use of melatonin 6-9 mg before bed. Reiterated sleep hygiene techniques. Medications: New melatonin 9 mg (3 x 3 mg) PO BEDTIME 30 days PRN 90 caps 0RF sleep F51.01 - Primary insomnia zolpidem 5 mg PO BEDTIME 10 days PRN 10 tabs 1RF sleep F51.01 - Primary insomnia Refilled diclofenac sodium 1% 4 grams topical TID 1 month 100 grams 4RF M54.5 - Low back pain Coding Level of Care Code Est Pt Prev Care 40-64y(20373) Diagnoses Annual physical exam Z00.00 Essential (primary) hypertension I10 Coronary artery disease of [place] artery of [place] heart with stable angina pectoris I25.118 Coronary Disease-Associated Artery/Lesion type: [place] artery [place] vs. transplanted heart: [place] heart Associated angina: with stable angina Class 1 obesity due to excess calories with serious comorbidity and body mass index (BMI) of 33.0 to 33.9 in adult E66.09; Z68.33 Obesity type: due to excess calories Obesity classification: adult class 1 (BMI 30 - 34.9) Serious obesity comorbidity presence: with serious comorbidity Body mass index: BMI 33.0-33.9 Primary insomnia F51.01 Insomnia type: primary
== END 2023-03-11 09:48 | disposition home or self-care (01) ==
PROVIDERS: Visit Provider Physician Assistant
DX: Z00.00 Encounter for general adult medical examination without abnormal findings (principal); I10 Essential (primary) hypertension; I25.118 Atherosclerotic heart disease of native coronary artery with other forms of angina pectoris; E66.09 Other obesity due to excess calories; Z68.33 Body mass index [BMI] 33.0-33.9, adult; F51.01 Primary insomnia
CPT/HCPCS: 99396

== ENCOUNTER 2023-05-14 14:19 | Outpatient (AMB) | payer OTHER, SELFPAY ==
--- NOTE | 2023-05-14 14:22 | AM.OFFVISNUR ---
Intake Intake Visit Reasons: flu shot Allergies doxazosin Adverse Reaction (Intermediate, Verified 03/11/23 09:21) Fatigued Office Procedures Flu Questionnaire Does the patient have a severe egg allergy?: No Does the patient have severe life threatening allergies?: No Does the patient have a fever or illness today?: No Has the patient ever had Guillain-[place] Syndrome?: No Has the patient ever had any past reaction to a flu shot?: No Immunizations flu vacc [id number] 6mos up(PF) 60 mcg(15 mcgx4)/0.5 mL IM syringe Performing Provider: Kevin Orozco PA-C [facility] Administered by: Pau Hunt RN on 05/14/23 14:27 Dose Route Admin Location Dispensed Lot Number Expiration Date NDC [employer] 0.5 mL IM Left Deltoid 0.5 mL [id number] 10/20/23 13728-337-09 [employer] VIS Given Date VIS Provided VIS Publication Date 05/14/23 Single Vaccine 20 Eligibility Eligibility Date Funding Source Not [facility] Eligible 05/14/23 Private Coding Assessment & Plan Assessment & Plan Orders: Orders Influenza [id number] Immunization Today Z23 - Encounter for immunization
== END 2023-05-14 14:28 | disposition home or self-care (01) ==
PROVIDERS: PCP Physician Assistant; Visit Provider Physician Assistant
DX: Z23 Encounter for immunization (principal)
CPT/HCPCS: 90471; 90686

== ENCOUNTER 2023-08-26 09:18 | Outpatient (REF) | payer OTHER, SELFPAY ==
[2023-08-26 11:23] LABS: Alanine Aminotransferase 14 U/L (0-40); Alkaline Phosphatase 55 U/L (39-117); Anion Gap 15 (12-20); Aspartate Amino Transferase 17 U/L (5-37); Bilirubin Total 0.7 mg/dL (0.0-1.0); Blood Urea Nitrogen 17 mg/dL (9-16); Calcium 9.9 mg/dL (8.4-10.2); Carbon Dioxide 30 mmol/L (22-29); Chloride 107 mmol/L (96-108); Cholesterol 206 mg/dL (<200); Estimated Glomerular Filt Rate > 60; Glucose Fasting 86 mg/dL (60-99); HDL Cholesterol 63 mg/dL (>40); LDL Cholesterol Calculated 130 mg/dL (<100); Potassium 3.6 mmol/L (3.3-5.1); Sodium 148 mmol/L (135-145); Total Protein 7.1 g/dL (6.5-8.0); Triglycerides 66 mg/dL (<150)
[2023-08-26 11:29] LABS: Prostate Specific Antigen Scr 3.63 ng/mL (<0.05-4.0)
[2023-08-26 12:19] LABS: Creatinine Urine 60.07 mg/dL; Microalbumin Urine < 5.0 mg/L
== END 2023-08-26 09:19 | disposition home or self-care (01) ==
LOC: HO.LAB 09:18
PROVIDERS: PCP Physician Assistant; Visit Provider Physician Assistant
DX: Z12.5 Encounter for screening for malignant neoplasm of prostate (principal); I25.118 Atherosclerotic heart disease of native coronary artery with other forms of angina pectoris; I10 Essential (primary) hypertension
CPT/HCPCS: 36415; 80053; 80061; 82043; 82570; 84153; 99212

== ENCOUNTER 2023-08-26 09:56 | Outpatient (AMB) | payer OTHER, SELFPAY ==
[2023-08-26 10:12] VITALS: BP 130/68; PULSE 58; O2SAT 98; BMI 34.5
--- NOTE | 2023-08-26 10:12 | MHC.OFFVIS ---
Vital Signs 08/26/23 10:12 Height 5 ft 4 in Weight 201 lb BMI 34.5 BP 130/68 Blood Pressure Location Lt brachial Position Sitting Pulse 58 Pulse Source Monitor Pulse Oximetry (%) 98 Oxygen Delivery Method Room Air Intake Visit Reasons: 6 mth fu Solar Systems Designer Required: Yes Solar Systems Designer Name: [id number] Allergies doxazosin Adverse Reaction (Intermediate, Verified 03/11/23 09:21) Fatigued Medication List - Last Reviewed 08/26/23 by Talisha Carter acetaminophen ER 650 mg PO Q12H 30 days amlodipine-benazepril 10-40 mg 1 cap PO DAILY calcium carbonate 500 mg PO DAILY carvedilol (Coreg) 6.25 mg PO BID cholecalciferol (vitamin D3) (Vitamin D3) 25 mcg PO DAILY cyclobenzaprine 10 mg PO BEDTIME 90 days diclofenac sodium 1% 4 grams topical TID 1 month donepezil 5 mg PO DAILY ezetimibe (Zetia) 10 mg PO DAILY hydrochlorothiazide 25 mg PO DAILY magnesium oxide 400 mg PO DAILY melatonin 9 mg (3 x 3 mg) PO BEDTIME PRN 30 days miscellaneous medical supply 1 ea miscellaneous .nightly 99 days multivitamin 1 tab PO DAILY rosuvastatin (Crestor) 20 mg PO DAILY zolpidem 5 mg PO BEDTIME PRN 10 days HPI Comments Details: Uriel returns for follow-up regarding vascular disease as well as hypertension. He has a history of right subclavian stenosis and weak right upper extremity pulse, present for a long time. However, he does not have any vascular symptoms at all. He also has hypertension. Morbid obesity and he did undergo bariatric surgery and lost weight. Overall, doing fine. He stated that he was getting some chest pains while walking on the treadmill. However, currently denies any such symptoms and states he feels fine. He underwent coronary CTA for further evaluation. No new issues since last seen. No further chest pains or in fact any cardiac symptoms at all. Discussed using area development manager. COUNTS INCLUDE 234 BEDS AT THE [facility] Medical History (Updated 12/06/22 @ 10:31 by Kevin Orozco PA-C) Left atrial dilation COVID-19 vaccine series completed Cardiomegaly Binge-eating disorder, in full remission, moderate DJD (degenerative joint disease) GERD (gastroesophageal reflux disease) Sleep apnea with use of continuous positive airway pressure (CPAP) Morbid obesity Subclavian artery stenosis, right High cholesterol Shoulder pain, left Cholecystectomy planned Surgical History S/P laparoscopic sleeve gastrectomy Hx of colonoscopy History of umbilical hernia repair History of cholecystectomy Hx of cardiac cath Family History Father H/O ETOH abuse Hypertension Alzheimers disease Substance use disorder Mental health disorder Mother Medical history unknown Brother Hypertension Diabetes Social History Housing: Apartment Are you a primary med care manager to a significant other at home: No Do you presently have visiting nurse or other home services: No Alcohol intake: never Patient Tobacco Use Status: Former Tobacco user Quit Date: 20 yrs ago e-Cigarette/Vaping Use: Never Used Second Hand Smoke Exposure: No service: No Current occupational status: retired Current occupational exposures/hazards: No Cognitive needs: No Hearing needs: No Vision needs: Yes Review of Systems Const All systems reviewed & are unremarkable except as noted in HPI and below Reports as per HPI and Reports no additional complaints Eyes Reports as per HPI and Denies no additional complaints ENT Denies no additional complaints and Reports as per HPI Card Reports as per HPI, Reports no additional complaints, Denies acrocyanosis, Denies chest pain, Denies leg edema, Denies lightheadedness, Denies palpitations and Denies dyspnea Resp Reports as per HPI, Denies no additional complaints and Denies dyspnea GI Reports as per HPI and Denies no additional complaints Reports no additional complaints and Reports as per HPI Musc Reports no additional complaints and Reports as per HPI Skin/Breast Reports system reviewed and no additional complaints, except as documented Neuro Reports no additional complaints and Reports as per HPI Psych Reports no additional complaints and Reports as per HPI Endo Reports no additional complaints, Reports as per HPI and Denies palpitations Italo/Lymph Reports no additional complaints and Reports as per HPI Aller/Immun Reports no additional complaints and Reports as per HPI Physical Exam Vital Signs: Last Vital Signs Pulse 58 08/26/23 10:12 BP 130/68 08/26/23 10:12 Pulse Ox 98 08/26/23 10:12 Oxygen Delivery Method Room Air 08/26/23 10:12 BMI result Body Mass Index 34.5 Const General: comfortable and no acute distress Orientation/consciousness: patient oriented x3 HEENT Other: Unremarkable Head: Yes normal to inspection Neck Neck: Yes normal visual inspection Chest Chest palpation & inspection: normal inspection of the chest Resp Auscultation: clear to auscultation bilaterally Cardio Palpation: normal PMI Heart sounds: S1 normal heart sound present, S2 normal heart sound present, no gallops, Murmur heart sound present systolic II/ and at the right sternal border and no rubs GI Palpation (GI): Soft to palpation Back/Spine/Pelvis Other: unremarkable Skin General skin exam: no rashes or lesions noted Neuro General: patient oriented x3 Extrem General: Yes normal to inspection Psych Mental Status: mental status grossly normal Assessment & Plan Assessment & Plan (1) CAD (coronary artery disease): Code(s): I25.10 - Atherosclerotic heart disease of [place] coronary artery without angina pectoris Category: Medical Qualifiers: Associated angina: with stable angina Coronary Disease-Associated Artery/Lesion type: [place] artery [place] vs. transplanted heart: [place] heart Qualified Code(s): I25.118 - Atherosclerotic heart disease of [place] coronary artery with other forms of angina pectoris Plan: Cardiac studies reviewed. Myocardial perfusion imaging study from 04/2021 reported to have mild intensity apical ischemia. Cardiac catheterization [place] 2014-angiographically normal coronary arteries. Coronary CTA performed 2022 including FFR. He does have stenosis in LAD and circumflex, but not considered to be hemodynamically significant. Also reports a patent foramina ovale. In the past, had reports of chest pain but currently denies any symptoms at all. Continue aspirin, statins. In the past, we started Repatha but he states he did not take any of those injections and would rather not in the future. Hence add Zetia. (2) Essential (primary) hypertension: Code(s): I10 - Essential (primary) hypertension Category: Medical Plan: Stable. On amlodipine, benazepril, carvedilol, hydrochlorothiazide. Prefer to check blood pressures on the left side due to weak pulses on the right side. (3) LVH (left ventricular hypertrophy): Code(s): I51.7 - Cardiomegaly Category: Medical Plan: In the last echocardiogram, moderate left ventricular hypertrophy noted. Could be related to poorly controlled hypertension. No heart failure symptoms or signs. (4) Subclavian artery stenosis, right: Code(s): I77.1 - Stricture of artery Category: Medical Plan: No clinical symptoms. Continue aspirin. Cardiac [id number]- distal right subclavian artery had chronic total occlusion with reconstitution distally, status post intervention and stenting. Medications: New ezetimibe (Zetia) 10 mg PO DAILY 90 tabs 3RF Coding Level of Care Code Est Pt Level 4 (54184) Diagnoses Coronary artery disease of [place] artery of [place] heart with stable angina pectoris I25.118 Associated angina: with stable angina Coronary Disease-Associated Artery/Lesion type: [place] artery [place] vs. transplanted heart: [place] heart Essential (primary) hypertension I10 LVH (left ventricular hypertrophy) I51.7 Subclavian artery stenosis, right I77.1
== END 2023-08-26 10:32 | disposition home or self-care (01) ==
PROVIDERS: PCP Physician Assistant; Visit Provider Internal Medicine
DX: I25.118 Atherosclerotic heart disease of native coronary artery with other forms of angina pectoris (principal); I10 Essential (primary) hypertension; I51.7 Cardiomegaly; I77.1 Stricture of artery
CPT/HCPCS: 99214

== ENCOUNTER 2023-09-09 11:06 | Outpatient (AMB) | payer OTHER, SELFPAY ==
[2023-09-09 11:10] VITALS: BP 156/62; PULSE 60; O2SAT 96; BMI 38.7
--- NOTE | 2023-09-09 11:10 | MHC.PC.OV ---
Vital Signs 09/09/23 11:10 09/09/23 11:34 Height 5 ft 1.5 in Weight 208 lb 6 oz BMI 38.7 BP 156/62 H 160/62 H Blood Pressure Location Lt brachial Position Sitting Pulse 60 Pulse Source Pulse Oximeter Pulse Oximetry (%) 96 Oxygen Delivery Method Room Air Intake Visit Reasons: f/u HLD/ HTN Senior Piping Designer Required: Yes Senior Piping Designer Language: Surinamese Accompanied by: Spouse Allergies doxazosin Adverse Reaction (Intermediate, Verified 09/09/23 11:28) Fatigued Medication List - Last Reconciled 09/09/23 by Kevin Orozco PA-C acetaminophen ER 650 mg PO Q12H 30 days amlodipine-benazepril 10-40 mg 1 cap PO DAILY calcium carbonate 500 mg PO DAILY carvedilol (Coreg) 6.25 mg PO BID cholecalciferol (vitamin D3) (Vitamin D3) 25 mcg PO DAILY cyclobenzaprine 10 mg PO BEDTIME 90 days diclofenac sodium 1% 4 grams topical TID 1 month donepezil 5 mg PO DAILY ezetimibe (Zetia) 10 mg PO DAILY hydrochlorothiazide 25 mg PO DAILY magnesium oxide 400 mg PO DAILY melatonin 9 mg (3 x 3 mg) PO BEDTIME PRN 30 days miscellaneous medical supply 1 ea miscellaneous .nightly 99 days multivitamin 1 tab PO DAILY rosuvastatin (Crestor) 20 mg PO DAILY zolpidem 5 mg PO BEDTIME PRN 10 days Tobacco use date assessed: 09/09/23 Dental Screening Dental Screen Date: 03/11/23 HPI f/u HLD/ HTN HPI Details Patient is a 63 y/o M here today for a follow-up visit ??? Patient has a past medical history significant for morbid obesity, hypertension, left ventricular hypertrophy, right subclavian artery stenosis, PABLO, high cholesterol. Concerns--> he reports he continues to have issues with insomnia. Has used zolpidem 5 mg which has been effective though does wake up at 03:00. Has used 10 mg zolpidem which effectively gave him 7-8 hours of sleep. . Arterial disease: Patient followed by [facility]. Recent CTA chest showing left circumflex artery with 70% stenosis (. Most recent LDL of 101. Has been unable to tolerate statin therapy due to myalgias. Has followed up with his textile machinery sales representative whom recommended starting Repatha though the patient was not interested in injections. He more recently started Zetia 10 mg, will recheck lipid panel. Patient's most recent lipid panel showing suboptimally controlled LDL. .. HTN:?Today blood pressure in office elevated. He does report being somewhat frustrated today due to being late to appointment. . He does report at home blood pressures are generally stable though sometimes does have high readings. Recently recieved a US renal without evidence on CECI or adrenal mass. Continues on multiple med for his Blood pressure.? .. PABLO:? Continues to follow pulmonology .? It seems he needs a repeat home sleep study to evaluate the further need for CPAP machine at night. Laboratory Tests 09/18/22 08/26/23 08/26/23 11:50 09:30 09:32 RBC 4.39 L Hgb 12.8 L Sodium 144 148 H Cholesterol 174 206 H LDL Cholesterol, C alc 101 130 H PSA Screen 3.63 Urine Microalbumin < 5.0 PFSH Medical History Left atrial dilation COVID-19 vaccine series completed Cardiomegaly Binge-eating disorder, in full remission, moderate DJD (degenerative joint disease) GERD (gastroesophageal reflux disease) Sleep apnea with use of continuous positive airway pressure (CPAP) Morbid obesity Subclavian artery stenosis, right High cholesterol Shoulder pain, left Cholecystectomy planned Surgical History S/P laparoscopic sleeve gastrectomy Hx of colonoscopy History of umbilical hernia repair History of cholecystectomy Hx of cardiac cath Family History Father H/O ETOH abuse Hypertension Alzheimers disease Substance use disorder Mental health disorder Mother Medical history unknown Brother Hypertension Diabetes Social History Housing: Apartment Are you a primary careers counsellor to a significant other at home: No Do you presently have visiting nurse or other home services: No Alcohol intake: never Patient Tobacco Use Status: Former Tobacco user Quit Date: 20 yrs ago e-Cigarette/Vaping Use: Never Used Second Hand Smoke Exposure: No service: No Current occupational status: retired Current occupational exposures/hazards: No Cognitive needs: No Hearing needs: No Vision needs: Yes Questionnaire Thrive Questionnaire Date Thrive assessed: 08/06/22 FREDA-7 AMB Questionnaire FREDA-7 Date FREDA - 7 assessed: 08/06/22 Feeling nervous, anxious, or on edge: 0 = Not at all Not being able to stop or control worryin = Not at all Worrying too much about different things: 0 = Not at all Trouble relaxin = Not at all Being so restless that it is hard to sit still: 0 = Not at all Becoming easily annoyed or irritable: 0 = Not at all Feeling afraid as if something awful might happen: 0 = Not at all Total FREDA-7 score (0-4 normal; 5-9 mild; 10-14 moderate; 15-21 severe): 0 Source: Developed by Drs. Michele Ding, Rianna Ceja, Dario Haddad and colleagues, with an educational mir from [employer]. Review of Systems Const Denies headache(s) Eyes Denies loss of vision ENT Denies vertigo, Denies dizziness, Denies headache(s) and Denies sore throat Card Denies chest pain, Denies leg edema and Denies lightheadedness Resp Denies cough, Denies hemoptysis and Denies wheezing GI Denies abdominal pain, Denies melena, Denies constipation, Denies diarrhea and Denies vomiting Denies dysuria, Denies urinary frequency and Denies urinary urgency Musc Denies arthralgias, Denies joint swelling, Denies numbness and Denies tingling Neuro Denies Abnormal speech present, Denies behavioral changes, Denies vertigo, Denies dizziness, Denies headache(s), Denies loss of vision, Denies memory loss, Denies numbness and Denies tingling Psych Reports abnormal sleep pattern, Denies anxiety, Denies behavioral changes, Denies depression, Denies memory loss and Denies panic attacks Italo/Lymph Denies easy bleeding and Denies easy bruising Aller/Immun Denies wheezing Physical exam (Primary Care) Vital Signs: Last Vital Signs Pulse 60 09/09/23 11:10 BP 160/62 H 09/09/23 11:34 Pulse Ox 96 09/09/23 11:10 Oxygen Delivery Method Room Air 09/09/23 11:10 BMI result Body Mass Index 38.7 Tobacco/Smoking Status: Tobacco use Status Tobacco use date assessed 09/09/23 09/09/23 11:22 Patient Tobacco Use Status Former Tobacco user 09/09/23 11:12 Tobacco use type 09/03/22 09:31 e-Cigarette/Vaping Use Never Used 09/09/23 11:12 Thrive Assessment: Date of Thrive Assessment Date Thrive assessed 08/06/22 09/09/23 11:12 Const General: healthy appearing, no acute distress, alert and awake Nutritional Appearance: well nourished Orientation/consciousness: oriented to person, oriented to place and oriented to time HENMT Ears: TM's normal bilaterally General nose exam: Normal nasal mucous membranes and turbinates present Eyes Conjunctivae: conjunctivae normal Sclerae: sclerae normal Pupils: Equal, round and reactive pupils present Neck Neck: Yes no lymphadenopathy and Yes no JVD Thyroid: Thyroid normal Carotids: no bruits Resp Effort & Inspection: normal respiratory effort and not tachypneic Auscultation: no crackles, no rales, no rhonchi and no wheezes Cardio Rate: regular rate Rhythm: regular rhythm Heart sounds: no murmurs and normal S1 and S2 GI Palpation (GI): Soft to palpation, nontender, no hepatomegaly and no splenomegaly Auscultation: normal bowel sounds Skin General skin exam: no rashes or lesions noted and dry skin Neuro General: oriented to person, oriented to place and oriented to time Cranial nerves: Yes Equal, round and reactive pupils present Speech: No Abnormal speech present Gait exam (Neuro): Normal gait present Motor exam (neuro): no tremor noted Extrem Right upper extremity: full ROM Left upper extremity: full ROM Right lower extremity: full ROM; no edema Left lower extremity: full ROM; no edema Psych Mental Status: mental status grossly normal Speech and movement: Normal speech and movement present Affect: normal affect Attitude: cooperative Thought process: Normal thought process present Assessment and Plan Assessment & Plan (1) Essential (primary) hypertension: Code(s): I10 - Essential (primary) hypertension Plan: Patient's blood pressure slightly elevated today in office.. Will continue current dose of antihypertensive medication with goal blood pressure to remain below 140/90 (2) CAD (coronary artery disease): Code(s): I25.10 - Atherosclerotic heart disease of [place] coronary artery without angina pectoris Qualifiers: Associated angina: with stable angina Coronary Disease-Associated Artery/Lesion type: [place] artery [place] vs. transplanted heart: [place] heart Qualified Code(s): I25.118 - Atherosclerotic heart disease of [place] coronary artery with other forms of angina pectoris Plan: Patient most recent CT of chest showing 70% stenosis of the left circumflex. Will continue to manage risk factors such as blood pressure, cholesterol ect.. Most recent LDL suboptimal. Was not willling to do repatha. Was recently started on zetia. Goal LDL to be optimally below 70 (3) Obese: Code(s): E66.9 - Obesity, unspecified Qualifiers: Body mass index: BMI 33.0-33.9 Obesity classification: adult class 1 (BMI 30 - 34.9) Obesity type: due to excess calories Serious obesity comorbidity presence: with serious comorbidity Qualified Code(s): E66.09 - Other obesity due to excess calories; Z68.33 - Body mass index [BMI] 33.0-33.9, adult Plan: Patient does understand his BMI is over 30 will work on being more physically active and adapting to better eating habits to reduce his weight (4) Insomnia: Code(s): G47.00 - Insomnia, unspecified Qualifiers: Insomnia type: primary Qualified Code(s): F51.01 - Primary insomnia Plan: Reports having a lot of trouble sleeping. Otherwise advised on the use of melatonin 6-9 mg before bed. Reiterated sleep hygiene techniques. He reports his zolpidem has been helpful on a as needed basis though is interested in 10 mg zolpidem for longer hours of sleep. Orders: Orders Lipid Panel Today I25.118 - Atherosclerotic heart disease of [place] coronary artery with other forms of angina pectoris Vitamin D 25-OH Total Today E55.9 - Vitamin D deficiency, unspecified Comprehensive [place]. Panel Fast Today E78.00 - Pure hypercholesterolemia, unspecified Medications: New zolpidem 10 mg PO BEDTIME PRN 20 tabs 0RF insomnia 20 days F51.01 - Primary insomnia Discontinued zolpidem Discontinued Reason: Doctor's Order 5 mg PO BEDTIME 10 days PRN 10 tabs 1RF sleep F51.01 - Primary insomnia Patient Instructions: Goal: Blood pressure to be below 140/90 Barriers: Adherence to physical activity and healthy eating habits Coding Level of Care Code Est Pt Level 4 (89951) Diagnoses Essential (primary) hypertension I10 Coronary artery disease of [place] artery of [place] heart with stable angina pectoris I25.118 Associated angina: with stable angina Coronary Disease-Associated Artery/Lesion type: [place] artery [place] vs. transplanted heart: [place] heart Class 1 obesity due to excess calories with serious comorbidity and body mass index (BMI) of 33.0 to 33.9 in adult E66.09; Z68.33 Body mass index: BMI 33.0-33.9 Obesity classification: adult class 1 (BMI 30 - 34.9) Obesity type: due to excess calories Serious obesity comorbidity presence: with serious comorbidity Primary insomnia F51.01 Insomnia type: primary
[2023-09-09 11:34] VITALS: BP 160/62
== END 2023-09-09 11:45 | disposition home or self-care (01) ==
LOC: HO.HMGH 11:06
PROVIDERS: PCP Physician Assistant; Visit Provider Physician Assistant
DX: I10 Essential (primary) hypertension (principal); I25.118 Atherosclerotic heart disease of native coronary artery with other forms of angina pectoris; E66.09 Other obesity due to excess calories; Z68.33 Body mass index [BMI] 33.0-33.9, adult; F51.01 Primary insomnia
CPT/HCPCS: 99214

== ENCOUNTER 2023-10-21 20:12 | Emergency (ER) | payer OTHER, SELFPAY ==
[2023-10-21 20:28] VITALS: BP 150/65; PULSE 71; RESP 18; TEMP 37.1; O2SAT 97; BMI 34.3
--- NOTE | 2023-10-21 20:36 | ED.GENADULT ---
HPI - General Adult General Chief complaint: General Medical Stated complaint: not feeling well Time Seen by Provider: 10/21/23 23:39 Source: patient, family and soap worker Mode of arrival: ambulatory Limitations: no limitations History of Present Illness ED Provider: DR. Singh HPI narrative: 63-year-old male came in for evaluation of generalized weakness, nausea, nonbloody watery diarrhea for the past 3-4 days, leg cramps. Patient's brother was sick recently, patient declined using recent antibiotic, declined any blood in the diarrhea, complaining of mild lower abdominal discomfort especially with cramps and diarrhea. Related Data Home Medications ?Medication ?Instructions ?Recorded ?Confirmed multivitamin 1 tab PO DAILY 11/23/21 09/09/23 donepezil 5 mg tablet 5 mg PO DAILY 09/03/22 09/09/23 Previous Rx's ?Medication ?Instructions ?Recorded miscellaneous medical supply 1 ea miscellaneous .nightly 99 05/31/21 days #1 ea calcium carbonate 500 mg PO DAILY #90 tabs 08/14/22 acetaminophen 650 mg 650 mg PO Q12H 30 days #60 tabs 08/21/22 tablet,extended release cholecalciferol (vitamin D3) 25 25 mcg PO DAILY #90 caps 11/27/22 mcg (1,000 unit) capsule (Vitamin D3) cyclobenzaprine 10 mg tablet 10 mg PO BEDTIME 90 days #90 tabs 01/28/23 amlodipine 10 mg-benazepril 40 mg 1 cap PO DAILY #30 caps 02/18/23 capsule magnesium oxide 400 mg (241.3 mg 400 mg PO DAILY #90 tabs 07/09/23 magnesium) tablet rosuvastatin 20 mg tablet (Crestor) 20 mg PO DAILY #90 tabs 07/09/23 hydrochlorothiazide 25 mg tablet 25 mg PO DAILY #90 tabs 08/12/23 diclofenac sodium 1 % topical gel 4 g topical TID 1 month #100 grams 08/20/23 ezetimibe 10 mg tablet (Zetia) 10 mg PO DAILY #90 tabs 08/26/23 melatonin 3 mg capsule 9 mg (3 x 3 mg) PO BEDTIME PRN 09/02/23 sleep 30 days #90 caps carvedilol 6.25 mg tablet (Coreg) 6.25 mg PO BID #180 tabs 09/30/23 zolpidem 10 mg tablet 10 mg PO BEDTIME PRN insomnia 20 10/14/23 days #20 tabs Allergies Allergy/AdvReac Type Severity Reaction Status Date / Time No Known Allergies Allergy Verified 10/21/23 20:32 Review of Systems Review of Systems: All other systems are reviewed and are negative Constitutional: Reports as per HPI and Reports no additional constitutional complaints Eyes: Reports as per HPI and Reports no additional eye complaints Reports system reviewed and no additional complaints, except as documented Cardiovascular: Reports as per HPI and Reports no additional cardiovascular complaints Respiratory: Reports as per HPI and Reports no additional respiratory complaints Gastrointestinal: Reports as per HPI and Reports no additional gastrointestinal complaints Genitourinary: Reports no additional female genitourinary complaints Musculoskeletal: Reports no additional musculoskeletal complaints Skin/Breast: Reports system reviewed and no additional complaints, except as docu Psychiatric: Reports no additional psychiatric complaints Endocrine: Reports no additional endocrine complaints Hematologic/Lymphatic: Reports no additional hematologic/lymphatic complaints Allergic/Immunologic: Reports no additional allergic/immunologic complaints Reports system reviewed and no additional complaints, except as documented and Reports Abnormal speech present [facility] Past Medical History Medical History Left atrial dilation COVID-19 vaccine series completed Cardiomegaly Binge-eating disorder, in full remission, moderate DJD (degenerative joint disease) GERD (gastroesophageal reflux disease) Sleep apnea with use of continuous positive airway pressure (CPAP) Morbid obesity Subclavian artery stenosis, right High cholesterol Shoulder pain, left Cholecystectomy planned Surgical History S/P laparoscopic sleeve gastrectomy Hx of colonoscopy History of umbilical hernia repair History of cholecystectomy Hx of cardiac cath Family History Family History Father H/O ETOH abuse Hypertension Alzheimers disease Substance use disorder Mental health disorder Mother Medical history unknown Brother Hypertension Diabetes Social History Social History Housing: Apartment Are you a primary child care counselor to a significant other at home: No Do you presently have visiting nurse or other home services: No Alcohol intake: never Patient Tobacco Use Status: Former Tobacco user e-Cigarette/Vaping Use: Never Used Second Hand Smoke Exposure: No Advance Directives: No Advance Directives Information Provided: No service: No Current occupational status: retired Current occupational exposures/hazards: No Cognitive needs: No Hearing needs: No Vision needs: Yes Physical Exam ED Vital Signs: Vital Signs - 24 hr 10/21/23 20:28 10/21/23 22:03 10/22/23 00:00 Temperature 98.7 F 98.4 F 98.4 F Pulse Rate 71 64 58 Respiratory Rate 18 15 16 Blood Pressure 150/65 H 144/46 H 153/60 H Pulse Oximetry 97 98 95 Oxygen Delivery Method Room Air Room Air Room Air 10/22/23 00:22 10/22/23 00:22 10/22/23 00:23 Temperature Pulse Rate 58 64 62 Respiratory Rate Blood Pressure 153/60 H 147/64 H 159/67 H Pulse Oximetry Oxygen Delivery Method 10/22/23 02:00 Temperature 98.2 F Pulse Rate 61 Respiratory Rate 16 Blood Pressure 110/47 L Pulse Oximetry 98 Oxygen Delivery Method Room Air BMI result Body Mass Index 34.3 Vital signs have been reviewed and appear to be correct. Blood pressure elevated. Heart rate normal. Respiratory rate normal. Temperature normal. Oxygen saturation normal. Appearance: Alert. Oriented X3. No acute distress. Head: Normal external exam. Normocephalic. Atraumatic. No Sam signs noted. No raccoon eyes noted Eyes: PERRLA. EOMI. Conjunctiva and sclera normal. Eyelids normal. ENT: TM's Normal. Pharynx normal. Uvula midline. Moist mucous membranes. No trismus noted. No drooling noted. No muffled voice noted. Neck: Normal inspection. Neck supple. FROM. No adenopathy. Thyroid Normal. No meningeal signs. No neck mass noted. CVS: Normal heart rate and rhythm. Heart sound normal. No murmurs noted. Pulses normal throughout. Respiratory: No respiratory distress. Painless inspiration. Breath sounds normal. No wheezes/rales/rhonchi noted. Chest nontender. No accessory muscle usage noted or decreased air movement noted. Abdomen: Soft and nontender. Bowel sounds normal in all 4 quadrants. No distention noted. No organomegaly noted. No visible injury noted. Back: No CVA tenderness. Full range of motion noted. Skin: Skin warm and dry. Normal skin color. Normal skin turgor. No rashes/lesions/lacerations noted. Extremities: No lower extremity edema. Extremities exhibit normal range of motion. Extremities nontender. Neuro: Oriented X 3. Cranial nerve exam: II-XII are grossly intact No motor deficit. No sensory deficit. Reflexes normal. Course Course Course Narrative: RME performed by Monica Butcher PA-C. Patient is a 63 year old assigned male at presenting to the emergency department with a headache, diarrhea, weakness, and feeling generally unwell. Detailed physical exam and review of systems are deferred to the lozenge maker helper. Labs, imaging, and swabs ordered. Patient placed back in the waiting room pending room availability and results. Reevaluation(s) Reevaluation #1: Patient feels better after 2 L of IV hydration, potassium was repleted, patient was instructed to drink plenty of fluids and eat foods rich in potassium. Time: 04:11 Medications Administered Discontinued Medications Generic Name Dose Route Start Last Admin Trade Name Freq PRN Reason Stop Dose Admin Sodium Chloride 1,000 mls @ 999 mls/hr 10/21/23 23:53 10/22/23 02:44 Ns IV 10/22/23 00:53 Infused .Q1H1M ONE Infusion Potassium Chloride 10 meq in 100 mls @ 100 mls/hr 10/21/23 23:54 10/22/23 02:44 Potassium Chloride/H20 IV 10/22/23 00:53 Infused ONCE ONE Infusion Sodium Chloride 1,000 mls @ 999 mls/hr 10/21/23 23:55 10/22/23 01:22 Ns IV 10/22/23 00:55 999 mls/hr .Q1H1M ONE Administration Loperamide HCl 2 mg 10/21/23 23:53 10/22/23 01:27 Loperamide Hcl 2 Mg Capsule PO 10/21/23 23:54 2 mg ONCE ONE Administration Potassium Chloride 40 meq 10/21/23 23:54 10/22/23 01:27 Potassium Chloride Packet 20 Meq Packet PO 10/21/23 23:55 40 meq ONCE ONE Administration Medical Decision Making Differential Diagnosis Differential Diagnoses: The differential diagnosis associated with the presentation includes (Dehydration, electrolyte derangement, ZACARIAS, enteritis, viral infection, UTI.) Admission/Observation Consideration of admission/observation: Escalation of care including admission/observation considered Lab Data MDM Lab Attestation statement: I reviewed the patient's lab results. 10/21/23 21:06 10/21/23 21:06 Labs: Lab Results 10/21/23 10/21/23 Range/Units 21:05 21:06 WBC 4.4 L (4.8-10.8) X10*3/uL RBC 4.17 L (4.60-5.80) X10*6/uL Hgb 12.4 L (14.0-18.0) g/dl Hct 35.1 L (42.0-52.0) % MCV 84.2 (80.0-98.0) fL MCH 29.7 (27.0-33.0) pg MCHC 35.3 (31.0-36.0) g/dl RDW 12.9 (11.0-16.0) % Plt Count 264 (160-400) X10*3/uL MPV 9.5 (9.4-12.4) fL Immature Gran % (Auto) 1.6 H (0.0-0.4) % Neut % (Auto) 50.6 (45-73) % Lymph % (Auto) 26.3 (20-40) % [place] % (Auto) 14.7 H (2-11) % Eos % (Auto) 6.3 H (0-4) % Baso % (Auto) 0.5 (0-2) % Lymph # (Auto) 1.2 (1.2-4.9) X10*3/uL [place] # (Auto) 0.7 (0.1-1.2) X10*3/uL Eos # (Auto) 0.3 (0.0-0.4) X10*3/uL Baso # (Auto) 0.0 (0.0-0.2) X10*3/uL Abs Immat Gran (auto) 0.07 H (0.00-0.03) X10*3/uL Absolute Neuts (auto) 2.2 (2.0-8.3) x10*3/uL Absolute Nucleated RBC 0.000 (0.0-0.012) X10*3/uL Nucleated RBC % (auto) 0.0 (0.0-0.2) /100WBC Smear Tech's Comments VERIFIED Sodium 143 (135-145) mmol/L Potassium 2.9 L* (3.3-5.1) mmol/L Chloride 105 (96-108) mmol/L Carbon Dioxide 28 (22-29) mmol/L Anion Gap 13 (12-20) BUN 18 H (9-16) mg/dL Creatinine 0.94 (0.5-1.4) mg/dL Estim Creat Clear Calc 81.6 Estimated GFR > 60 Random Glucose 101 (60-115) mg/dL Calcium 9.4 (8.4-10.2) mg/dL Magnesium 2.3 (1.6-2.6) mg/dL Total Bilirubin 0.3 (0.0-1.0) mg/dL AST 29 (5-37) U/L ALT 22 (0-40) U/L Alkaline Phosphatase 59 (39-117) U/L Total Protein 7.2 (6.5-8.0) g/dL Albumin 3.7 (3.5-5.0) g/dL Lipase 58 (8-78) U/L Urine Color Dark Yellow Urine Appearance Clear Urine pH 5.5 (5.0-9.0) Ur Specific [place] 1.025 (1.005-1.025) Urine Protein 30 (1+) H (Neg-Trace) mg/dL Urine Glucose (UA) Negative (Negative) mg/dL Urine Ketones Trace (Negative) mg/dL Urine Blood Negative (Negative) Urine Nitrite Negative (Negative) Ur Leukocyte Esterase Negative (Negative) Urine RBC 0-2 (0-2) /HPF Urine WBC 0-5 (0-5) /HPF Ur Squamous Epith Cells 0-2 (0-2) /HPF Urine Bacteria None Seen (None Seen) Hyaline Casts 6-10 (0-2) /LPF Influenza Type A (PCR) NEGATIVE (Negative) Influenza Type B (PCR) NEGATIVE (Negative) RSV RNA Qual (PCR) NEGATIVE (Negative) SARS-CoV-2 RNA (RT-PCR) NEGATIVE (Negative) S. pyogenes GrpA GARETH Negative (Negative) Discharge Plan Discharge Clinical Impression: Acute hypokalemia, Acute dehydration, Enteritis Patient Disposition: Home, Self-Care Instructions: Dehydration (ED), Potassium Content of Foods List (ED), Hypokalemia (ED) Additional Instructions: Drink plenty of fluids. Prescriptions: No Action calcium carbonate 500 mg calcium (1,250 mg) tablet 500 mg PO DAILY Qty: 90 2RF acetaminophen 650 mg tablet extended release 650 mg PO Q12H 30 Days Qty: 60 3RF cholecalciferol (vitamin D3) [Vitamin D3] 25 mcg (1,000 unit) capsule 25 mcg PO DAILY Qty: 90 3RF cyclobenzaprine 10 mg tablet 10 mg PO BEDTIME 90 Days Qty: 90 2RF amlodipine-benazepril 10-40 mg capsule 1 cap PO DAILY Qty: 30 11RF rosuvastatin [Crestor] 20 mg tablet 20 mg PO DAILY Qty: 90 1RF magnesium oxide 400 mg (241.3 mg magnesium) tablet 400 mg PO DAILY Qty: 90 1RF hydrochlorothiazide 25 mg tablet 25 mg PO DAILY Qty: 90 0RF Hold Instructions: Discuss restart with Dr Salas diclofenac sodium 1 % gel 4 g topical TID 30 Days Qty: 100 4RF melatonin 3 mg capsule 9 mg PO BEDTIME PRN (Reason: sleep) 30 Days Qty: 90 2RF carvedilol [Coreg] 6.25 mg tablet 6.25 mg PO BID Qty: 180 3RF Rx Instructions: must administer with a meal/food zolpidem 10 mg tablet 10 mg PO BEDTIME PRN (Reason: insomnia) 20 Days Qty: 20 1RF miscellaneous medical supply Misc 1 ea miscellaneous .nightly 99 Days Qty: 1 0RF donepezil 5 mg tablet 5 mg PO DAILY multivitamin Tablet 1 tab PO DAILY ezetimibe [Zetia] 10 mg tablet 10 mg PO DAILY Qty: 90 3RF Referrals: Kevin Orozco PA-C [Primary Care Provider] - Print Language: Danish
[2023-10-21 21:13] LABS: Basophils Percent Auto 0.5 % (0-2); Eosinophils Absolute Auto 0.3 X10*3/uL (0.0-0.4); Eosinophils Percent Auto 6.3 % (0-4); Hematocrit 35.1 % (42.0-52.0); Hemoglobin 12.4 g/dl (14.0-18.0); Imm Gran Abs Auto 0.07 X10*3/uL (0.00-0.03); Imm Gran Pct Auto 1.6 % (0.0-0.4); Lymphocytes Absolute Auto 1.2 X10*3/uL (1.2-4.9); Lymphocytes Percent Auto 26.3 % (20-40); MANUAL DIFF FLAG SCAN; Mean Corpuscular HGB Conc 35.3 g/dl (31.0-36.0); Mean Corpuscular Hemoglobin 29.7 pg (27.0-33.0); Mean Corpuscular Volume 84.2 fL (80.0-98.0); Mean Platelet Volume 9.5 fL (9.4-12.4); Monocytes Absolute Auto 0.7 X10*3/uL (0.1-1.2); Monocytes Percent Auto 14.7 % (2-11); Neutrophils Absolute Auto 2.2 x10*3/uL (2.0-8.3); Neutrophils Percent Auto 50.6 % (45-73); Platelet Count 264 X10*3/uL (160-400); Red Blood Count 4.17 X10*6/uL (4.60-5.80); Red Cell Distribution Width 12.9 % (11.0-16.0); SCAN SMEAR FLAG 1; White Blood Count 4.4 X10*3/uL (4.8-10.8)
[2023-10-21 21:14] LABS: Appearance Urine Clear; Color Urine Dark Yellow; Glucose Urine UA Negative (Negative); Leukocyte Esterase Urine Negative (Negative); Nitrite Urine Negative (Negative); PH 5.5 (5.0-9.0); Specific Gravity - Urine 1.025 (1.005-1.025); UMIC TRIGGER UACC YES; Urine Blood Negative (Negative); Urine Ketones Trace mg/dL (Negative); Urine Protein 30 (1+) mg/dL (Neg-Trace)
[2023-10-21 21:24] LABS: IDNOW Serial# 08D9AD1C; Strep A Nucleic Acid Negative (Negative)
[2023-10-21 21:25] LABS: Bacteria Urine None Seen (None Seen); RBC Urine 0-2 /HPF (0-2); Squamous Epithelial Cell Urine 0-2 /HPF (0-2); WBC Urine 0-5 /HPF (0-5)
[2023-10-21 21:34] LABS: SLIDE REVIEW VERIFIED
[2023-10-21 21:43] LABS: Alanine Aminotransferase 22 U/L (0-40); Albumin Level 3.7 g/dL (3.5-5.0); Alkaline Phosphatase 59 U/L (39-117); Anion Gap 13 (12-20); Aspartate Amino Transferase 29 U/L (5-37); Bilirubin Total 0.3 mg/dL (0.0-1.0); Blood Urea Nitrogen 18 mg/dL (9-16); Calcium 9.4 mg/dL (8.4-10.2); Carbon Dioxide 28 mmol/L (22-29); Chloride 105 mmol/L (96-108); Creatinine Clr Calc Pharmacy 81.6; Estimated Glomerular Filt Rate > 60; Glucose Random 101 mg/dL (60-115); Lipase 58 U/L (8-78); Potassium 2.9 mmol/L (3.3-5.1); Sodium 143 mmol/L (135-145); Total Protein 7.2 g/dL (6.5-8.0)
--- NOTE | 2023-10-21 21:50 | PC.NURSE ---
pt placed in 18H till room 21 gets discharged and cleaned. pt K+2.9
[2023-10-21 21:54] LABS: Influenza A PCR NEGATIVE (Negative); Influenza B PCR NEGATIVE (Negative); Resp Syncy Virus RNA Qual PCR NEGATIVE (Negative); SARS COV2 PCR INHOUSE NEGATIVE (Negative)
[2023-10-21 22:03] VITALS: BP 144/46; PULSE 64; RESP 15; TEMP 36.9; O2SAT 98
--- NOTE | 2023-10-21 22:45 | PC.NURSE ---
Went into place IV, patient refusing IV at this time, prefers to wait until provider says he needs one before getting stuck.
[2023-10-22] VITALS: BP 153/60; PULSE 58; RESP 16; TEMP 36.9; O2SAT 95
[2023-10-22 00:22] VITALS: BP 147/64; BP 153/60; PULSE 58; PULSE 64
[2023-10-22 00:23] VITALS: BP 159/67; PULSE 62
[2023-10-22 00:31] LABS: Magnesium 2.3 mg/dL (1.6-2.6)
[2023-10-22] MEDS: 0.9 % Sodium Chloride 1,000 ML 999 ML IV ×2 (01:22)
[2023-10-22] MEDS: Potassium Chloride/H20 10 MEQ/100 ML PIGGYBACK 100 MEQ IV (01:26)
[2023-10-22] MEDS: Loperamide HCl 2 MG CAPSULE PO (01:27)
[2023-10-22] MEDS: Potassium Chloride Packet 20 MEQ PACKET 40 MEQ PO (01:27)
[2023-10-22 02:00] VITALS: BP 110/47; PULSE 61; RESP 16; TEMP 36.8; O2SAT 98
[2023-10-22 04:00] VITALS: BP 145/63; PULSE 61; RESP 16; TEMP 36.8; O2SAT 97
[2023-10-22 04:33] VITALS: BP 145/63; PULSE 61; RESP 16; TEMP 36.8; O2SAT 97
== END 2023-10-22 04:34 | disposition home or self-care (01) ==
PROVIDERS: Physician Assistant Medical; Emergency Provider Emergency Medicine; PCP Physician Assistant
DX: K52.9 Noninfective gastroenteritis and colitis, unspecified (principal); R11.2 Nausea with vomiting, unspecified; E87.6 Hypokalemia; E86.0 Dehydration; Z79.899 Other long term (current) drug therapy
CPT/HCPCS: 0241U; 80053; 81001; 83690; 83735; 85025; 87651; 96361; 96374; 99284; J3480

== ENCOUNTER 2023-11-01 15:04 | Outpatient (AMB) | payer OTHER, SELFPAY ==
--- NOTE | 2023-11-01 15:16 | A.OFFPC_ITS ---
Vital Signs 11/01/23 15:19 Height 5 ft 4 in Weight 206 lb 6 oz BMI 35.4 BP 120/64 Blood Pressure Location Lt brachial Position Sitting Pulse 55 Pulse Source Pulse Oximeter Pulse Oximetry (%) 97 Oxygen Delivery Method Room Air Intake Visit Reasons: [facility] [place] Discharge Intake Note: Patient is here for hospital discharge follow up. [place] [facility] [place] Roof Fitter Required: Yes Roof Fitter Language: Software Test Engineer Name: Martinez [phone]) Information Interpreted: non-clinical & clinical Solar Sales Advisor: Not Required per policy Allergies No Known Allergies Allergy (Verified 11/01/23 15:18) Tobacco use date assessed: 11/01/23 Dental Screening Dental Screen Date: 11/01/23 Did you have a dental visit in the last 12 months?: Yes Did you have a dental problem in the last 6 months where you did not have access to dental care?: No Was dental information given to patient?: Patient has dentist HPI HPI Comments History of Present Illness Details 63 y/o male patient who presents to the clinic today for ED follow up. Pt was admitted at [facility] [place] - ED for c/o weakness, nausea, diarrhea and vomiting 3-4 days. DOS: 10/21/23 and DOD: Same. Pt was found to have Hypokalemia and and Acute dehydration. Today reports feeling much and no concerns. [facility] Medical History Left atrial dilation COVID-19 vaccine series completed Cardiomegaly Binge-eating disorder, in full remission, moderate DJD (degenerative joint disease) GERD (gastroesophageal reflux disease) Sleep apnea with use of continuous positive airway pressure (CPAP) Morbid obesity Subclavian artery stenosis, right High cholesterol Shoulder pain, left Cholecystectomy planned Surgical History S/P laparoscopic sleeve gastrectomy Hx of colonoscopy History of umbilical hernia repair History of cholecystectomy Hx of cardiac cath Family History Father H/O ETOH abuse Hypertension Alzheimers disease Substance use disorder Mental health disorder Mother Medical history unknown Brother Hypertension Diabetes Social History Housing: Apartment Are you a primary healthcare representative to a significant other at home: No Do you presently have visiting nurse or other home services: No Alcohol intake: never Patient Tobacco Use Status: Former Tobacco user e-Cigarette/Vaping Use: Never Used Second Hand Smoke Exposure: No service: No Current occupational status: retired Current occupational exposures/hazards: No Cognitive needs: No Hearing needs: No Vision needs: Yes Questionnaire PHQ-9 Over the last 2 weeks, how often have you been bothered by any of the following problems? 1. Little interest or pleasure in doing things: not at all 2. Feeling down, depressed, or hopeless: not at all 3. Trouble falling or staying asleep, or sleeping too much: not at all 4. Feeling tired or having little energy: not at all 5. Poor appetite or overeating: not at all 6. Feeling bad about yourself - or that you are a failure or have let yourself or your family down: not at all 7. Trouble concentrating on things, such as reading the newspaper or watching television: not at all 8. Moving or speaking so slowly that other people could have noticed. Or the opposite - being so fidgety or restless that you have been moving around a lot more than usual: not at all 9. Thoughts that you would be better off or of hurting yourself in some way: not at all Total score: 0 Depression Screening Interpretation: Negative Depression Screening Done: Yes Source: Developed by Drs. Michele Ding, Rianna Ceja, Dario Haddad and colleagues, with an educational mir from [employer]. Thrive Questionnaire Date Thrive assessed: 11/01/23 I am a: Patient What is your living situation today?: I have a steady place to live Within the past 12 months, did the food you bought not last and you didn't have the money to get more?: Never true Within the past 12 months, did you worry whether your food would run out before you got money to buy more?: Never true Do you have trouble paying for medicines?: No Do you have trouble getting transportation to medical appointments?: No Do you have trouble paying your heating and electricity bill?: No Do you have trouble taking care of your child, family member or friend?: No Do you have trouble with day-to-day activities such as bathing, preparing meals, shopping, managing finances, etc.?: No Are you currently unemployed and looking for a job?: No Are you interested in more education?: No Currently or been in a relationship where the following occur: No concerns reported THRIVE Score: 0 AUDIT C Alcohol Use Questionnaire (AUDIT-C) 1. How often do you have a drink containing alcohol?: Never Total Score: 0 FREDA-7 AMB Questionnaire FREDA-7 Date FREDA - 7 assessed: 11/01/23 Feeling nervous, anxious, or on edge: 0 = Not at all Not being able to stop or control worryin = Not at all Worrying too much about different things: 0 = Not at all Trouble relaxin = Not at all Being so restless that it is hard to sit still: 0 = Not at all Becoming easily annoyed or irritable: 0 = Not at all Feeling afraid as if something awful might happen: 0 = Not at all Total FREDA-7 score (0-4 normal; 5-9 mild; 10-14 moderate; 15-21 severe): 0 Source: Developed by Drs. Michele Ding, Rianna Ceja, Dario Haddad and colleagues, with an educational mir from [employer]. Review of Systems Const All systems reviewed & are unremarkable except as noted in HPI and below Physical exam (Primary Care) Vital Signs: Last Vital Signs Pulse 55 11/01/23 15:19 BP 120/64 11/01/23 15:19 Pulse Ox 97 11/01/23 15:19 Oxygen Delivery Method Room Air 11/01/23 15:19 BMI result Body Mass Index 35.4 Tobacco/Smoking Status: Tobacco use Status Tobacco use date assessed 11/01/23 11/01/23 15:22 Patient Tobacco Use Status Former Tobacco user 11/01/23 15:22 Tobacco use type 10/23/23 15:56 e-Cigarette/Vaping Use Never Used 11/01/23 15:22 PHQ-9: PHQ-9 Score PHQ-9: Total score 0 11/01/23 15:22 Depression Screening Interpretation: Negative Thrive Assessment: Date of Thrive Assessment Date Thrive assessed 11/01/23 11/01/23 15:22 Currently or been in a relationship where the following occur: No concerns reported Const General: comfortable and no acute distress Nutritional Appearance: obese Orientation/consciousness: patient oriented x3 Resp Effort & Inspection: normal respiratory effort and able to speak in complete sentences Auscultation: clear to auscultation bilaterally, no crackles, no rales, no rhonchi and no wheezes Cardio Heart sounds: S1 normal heart sound present and S2 normal heart sound present Neuro General: patient oriented x3, gait normal and moves all extremities Psych Speech and movement: Normal speech and movement present Vital Signs: Last Vital Signs Pulse 55 11/01/23 15:19 BP 120/64 11/01/23 15:19 Pulse Ox 97 11/01/23 15:19 Oxygen Delivery Method Room Air 11/01/23 15:19 BMI result Body Mass Index 35.4 Const General: comfortable and no acute distress Nutritional Appearance: obese Orientation/consciousness: patient oriented x3 Resp Effort & Inspection: normal respiratory effort and able to speak in complete sentences Auscultation: clear to auscultation bilaterally, no crackles, no rales, no rhonchi and no wheezes Cardio Heart sounds: S1 normal heart sound present and S2 normal heart sound present Neuro General: patient oriented x3, gait normal and moves all extremities Psych Speech and movement: Normal speech and movement present Assessment and Plan Assessment & Plan (1) Acute hypokalemia: Code(s): E87.6 - Hypokalemia Plan: Stable, no concerns. Denies Abdominal pain, nausea or vomiting. (2) Acute dehydration: Code(s): E86.0 - Dehydration Plan: Stable. He has been hydrating well at home. Plan F/U with PCP PRN. Coding Level of Care Code Est Pt Level 4 (75829) Diagnoses Acute hypokalemia E87.6 Acute dehydration E86.0 Comment Spent 20 minutes reviewing Hospital notes and labs
[2023-11-01 15:19] VITALS: BP 120/64; PULSE 55; O2SAT 97; BMI 35.4
== END 2023-11-01 16:18 | disposition home or self-care (01) ==
PROVIDERS: PCP Physician Assistant; Visit Provider Nurse Practitioner Family
DX: E87.6 Hypokalemia (principal); E86.0 Dehydration
CPT/HCPCS: 99214

== ENCOUNTER 2024-01-13 08:46 | Outpatient (AMB) | payer OTHER, SELFPAY ==
[2024-01-13 08:48] VITALS: BP 138/80; PULSE 68; O2SAT 98; BMI 35.8
--- NOTE | 2024-01-13 08:48 | MHC.PC.OV ---
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 [employer]ic Required: No Accompanied by: Self / Same As Patient Allergies No Known Allergies Allergy (Verified 01/13/24 09:07) Medication List - Last Reconciled 01/13/24 by Kevin Orozco PA-C acetaminophen ER 650 mg PO Q12H 30 days amlodipine-benazepril 10-40 mg 1 cap PO DAILY calcium carbonate 500 mg PO DAILY carvedilol (Coreg) 6.25 mg PO BID cholecalciferol (vitamin D3) (Vitamin D3) 25 mcg PO DAILY cyclobenzaprine 10 mg PO BEDTIME 90 days diclofenac sodium 1% 4 grams topical TID 1 month donepezil 5 mg PO DAILY ezetimibe (Zetia) 10 mg PO DAILY hydrochlorothiazide 25 mg PO DAILY magnesium oxide 400 mg PO DAILY melatonin 9 mg (3 x 3 mg) PO BEDTIME PRN 30 days miscellaneous medical supply 1 ea miscellaneous .nightly 99 days multivitamin 1 tab PO DAILY rosuvastatin 20 mg PO DAILY zolpidem 10 mg PO BEDTIME PRN 20 days Tobacco use date assessed: 01/13/24 Dental Screening Dental Screen Date: 01/13/24 Did you have a dental visit in the last 12 months?: Yes Did you have a dental problem in the last 6 months where you did not have access to dental care?: No Was dental information given to patient?: Patient has dentist HPI f/u HLD/ NORI HPI Details Patient is a 63 y/o M here today for a follow-up visit ??? Patient has a past medical history significant for morbid obesity, hypertension, left ventricular hypertrophy, right subclavian artery stenosis, PABLO, high cholesterol. .. Concern--> reports over the last 7 days having a upper respiratory infection and sore throat. Has tried [id number] cough cold medications which have been somewhat helpful though continues with a mild cough.. Also has developed a rash over his left forearm that is very itchy. Has not used any creams. .. Insomnia: he reports he continues to have issues with insomnia. Has used zolpidem 5 mg which has been effective though does wake up at 03:00. Has used 10 mg zolpidem which effectively gave him 7-8 hours of sleep. . Arterial disease: Patient followed by [facility]. Recent CTA chest showing left circumflex artery with 70% stenosis (. Most recent LDL of 101. Has been unable to tolerate statin therapy due to myalgias. Has followed up with his rn progressive care unit whom recommended starting Repatha though the patient was not interested in injections. He more recently started Zetia 10 mg, will recheck lipid panel. Patient's most recent lipid panel showing suboptimally controlled LDL. .. HTN:? Patient's blood pressure today in office acceptable. He reports he does not regularly follow his blood pressure readings at home as he is feeling good . . He does report at home blood pressures are generally stable though sometimes does have high readings. Recently recieved a US renal without evidence on CECI or adrenal mass. Continues on multiple med for his Blood pressure.? .. PABLO:? Continues to follow pulmonology .? It seems he needs a repeat home sleep study to evaluate the further need for CPAP machine at night. [facility] Medical History Left atrial dilation COVID-19 vaccine series completed Cardiomegaly Binge-eating disorder, in full remission, moderate DJD (degenerative joint disease) GERD (gastroesophageal reflux disease) Sleep apnea with use of continuous positive airway pressure (CPAP) Morbid obesity Subclavian artery stenosis, right High cholesterol Shoulder pain, left Cholecystectomy planned Surgical History S/P laparoscopic sleeve gastrectomy Hx of colonoscopy History of umbilical hernia repair History of cholecystectomy Hx of cardiac cath Family History Father H/O ETOH abuse Hypertension Alzheimers disease Substance use disorder Mental health disorder Mother Medical history unknown Brother Hypertension Diabetes Social History Housing: Apartment Are you a primary managed care nurse to a significant other at home: No Do you presently have visiting nurse or other home services: No Alcohol intake: never Patient Tobacco Use Status: Former Tobacco user e-Cigarette/Vaping Use: Never Used Second Hand Smoke Exposure: No service: No Current occupational status: retired Current occupational exposures/hazards: No Cognitive needs: No Hearing needs: No Vision needs: Yes Questionnaire PHQ-9 Over the last 2 weeks, how often have you been bothered by any of the following problems? 1. Little interest or pleasure in doing things: not at all 2. Feeling down, depressed, or hopeless: not at all 3. Trouble falling or staying asleep, or sleeping too much: not at all 4. Feeling tired or having little energy: not at all 5. Poor appetite or overeating: not at all 6. Feeling bad about yourself - or that you are a failure or have let yourself or your family down: not at all 7. Trouble concentrating on things, such as reading the newspaper or watching television: not at all 8. Moving or speaking so slowly that other people could have noticed. Or the opposite - being so fidgety or restless that you have been moving around a lot more than usual: not at all 9. Thoughts that you would be better off or of hurting yourself in some way: not at all Total score: 0 Depression Screening Interpretation: Negative Depression Screening Done: Yes 38611 - PHQ-9 Billing: Yes Source: Developed by Drs. Michele Ding, Rianna Ceja, Dario Haddad and colleagues, with an educational mir from [employer]. Thrive Questionnaire Date Thrive assessed: 01/13/24 I am a: Patient What is your living situation today?: I have a steady place to live Within the past 12 months, did the food you bought not last and you didn't have the money to get more?: Never true Within the past 12 months, did you worry whether your food would run out before you got money to buy more?: Never true Do you have trouble paying for medicines?: No Do you have trouble getting transportation to medical appointments?: No Do you have trouble paying your heating and electricity bill?: No Do you have trouble taking care of your child, family member or friend?: No Do you have trouble with day-to-day activities such as bathing, preparing meals, shopping, managing finances, etc.?: No Are you currently unemployed and looking for a job?: Yes Are you interested in more education?: No Please select the resources that you would like help with: None Currently or been in a relationship where the following occur: No concerns reported THRIVE Score: 0 AUDIT C Alcohol Use Questionnaire (AUDIT-C) 1. How often do you have a drink containing alcohol?: Never Total Score: 0 FREDA-7 AMB Questionnaire FREDA-7 Date FREDA - 7 assessed: 01/13/24 Feeling nervous, anxious, or on edge: 0 = Not at all Not being able to stop or control worryin = Not at all Worrying too much about different things: 0 = Not at all Trouble relaxin = Not at all Being so restless that it is hard to sit still: 0 = Not at all Becoming easily annoyed or irritable: 0 = Not at all Feeling afraid as if something awful might happen: 0 = Not at all Total FREDA-7 score (0-4 normal; 5-9 mild; 10-14 moderate; 15-21 severe): 0 Source: Developed by Drs. Michele Ding, Rianna Ceja, Dario Haddad and colleagues, with an educational mir from [employer]. FREDA-7 Assessment Billing FREDA-7 Assessment Tool: FREDA-7 Assessment 41013 Physical exam (Primary Care) Vital Signs: Last Vital Signs Pulse 68 01/13/24 08:48 BP 138/80 01/13/24 08:48 Pulse Ox 98 01/13/24 08:48 Oxygen Delivery Method Room Air 01/13/24 08:48 BMI result Body Mass Index 35.8 Tobacco/Smoking Status: Tobacco use Status Tobacco use date assessed 01/13/24 01/13/24 08:56 Patient Tobacco Use Status Former Tobacco user 01/13/24 08:56 Tobacco use type 10/23/23 15:56 e-Cigarette/Vaping Use Never Used 01/13/24 08:56 PHQ-9: PHQ-9 Score PHQ-9: Total score 0 01/13/24 09:09 Depression Screening Interpretation: Negative Thrive Assessment: Date of Thrive Assessment Date Thrive assessed 01/13/24 01/13/24 08:56 Currently or been in a relationship where the following occur: No concerns reported Assessment and Plan Assessment & Plan (1) Essential (primary) hypertension: Code(s): I10 - Essential (primary) hypertension Plan: Patient's blood pressure acceptable today in office. does not regularly check his blood pressure at home as he feels well . Will continue current dose of antihypertensive medication with goal blood pressure to remain below 140/90 (2) CAD (coronary artery disease): Code(s): I25.10 - Atherosclerotic heart disease of algaaciq coronary artery without angina pectoris Qualifiers: Associated angina: with stable angina Coronary Disease-Associated Artery/Lesion type: algaaciq artery Pala vs. transplanted heart: algaaciq heart Qualified Code(s): I25.118 - Atherosclerotic heart disease of algaaciq coronary artery with other forms of angina pectoris Plan: Patient most recent CT of chest showing 70% stenosis of the left circumflex. Will continue to manage risk factors such as blood pressure, cholesterol ect.. Most recent LDL suboptimal. Was not willling to do repatha. Continues on Zetia and rosuvastatin 20 mg Goal LDL to be optimally below 70 (3) Insomnia: Code(s): G47.00 - Insomnia, unspecified Qualifiers: Insomnia type: primary Qualified Code(s): F51.01 - Primary insomnia Plan: Continues to use zolpidem 10 mg on a nearly nightly basis now. He reports it does help him significantly with his sleep. (4) Bronchitis: Code(s): J40 - Bronchitis, not specified as acute or chronic Plan: Reports a week of upper respiratory congestion and cough. Has tested for COVID a few times and was negative. Has use [id number] meds without any relief. Will supply patient with antibiotic (5) Dermatitis: Code(s): L30.9 - Dermatitis, unspecified Plan: Has developed a rash over his left forearm over the last week as well. He reports the rashes issue. Will supply patient with a steroid cream to place on rash once a day. Medications: New lidocaine 5% 1 appl topical BEDTIME 50 grams 1RF 30 days M13.0 - Polyarthritis, unspecified, M54.5 - Low back pain triamcinolone acetonide 0.5% 1 appl topical DAILY 15 grams 0RF 15 days L30.9 - Dermatitis, unspecified doxycycline monohydrate 100 mg PO BID 10 caps 0RF 5 days J40 - Bronchitis, not specified as acute or chronic On Hold diclofenac sodium 1% Hold Comment: Doctor's Order 4 grams topical TID 1 month 100 grams 4RF M54.5 - Low back pain Patient Instructions: Goal: Blood pressure to remain below 140/90, LDL to be optimally below 70 Barriers: Adherence to physical activity and healthy eating habits Coding Level of Care Code Est Pt Level 4 (02432) Diagnoses Essential (primary) hypertension I10 Coronary artery disease of algaaciq artery of algaaciq heart with stable angina pectoris I25.118 Associated angina: with stable angina Coronary Disease-Associated Artery/Lesion type: algaaciq artery Pala vs. transplanted heart: algaaciq heart Primary insomnia F51.01 Insomnia type: primary Bronchitis J40 Dermatitis L30.9 Additional Codes FREDA-7 Assessment Billing - FREDA-7 Assessment Tool: FREDA-7 Assessment [id number] ([id number])
== END 2024-01-13 09:27 | disposition home or self-care (01) ==
PROVIDERS: PCP Physician Assistant; Visit Provider Physician Assistant
DX: I10 Essential (primary) hypertension (principal); I25.118 Atherosclerotic heart disease of native coronary artery with other forms of angina pectoris; F51.01 Primary insomnia; J40 Bronchitis, not specified as acute or chronic; L30.9 Dermatitis, unspecified

== ENCOUNTER → 2024-01-13 08:46 | Outpatient (BNVA) | payer OTHER, SELFPAY | PROVIDERS: PCP Physician Assistant; Visit Provider Physician Assistant | DX: I10 Essential (primary) hypertension (principal); I25.118 Atherosclerotic heart disease of native coronary artery with other forms of angina pectoris; F51.01 Primary insomnia; J40 Bronchitis, not specified as acute or chronic; L30.9 Dermatitis, unspecified | CPT/HCPCS: 96127; 99212 ==

== ENCOUNTER 2024-03-16 09:35 | Outpatient (AMB) | payer OTHER, SELFPAY ==
[2024-03-16 09:37] VITALS: BP 130/74; PULSE 80; O2SAT 95; BMI 37.0
--- NOTE | 2024-03-16 09:37 | A.OFFPC_ITS ---
Vital Signs 03/16/24 09:37 Height 5 ft 4 in Weight 215 lb 6 oz BMI 37.0 BP 130/74 Blood Pressure Location Lt brachial Position Sitting Pulse 80 Pulse Source Pulse Oximeter Pulse Oximetry (%) 95 Oxygen Delivery Method Room Air Intake Visit Reasons: Annual Exam Intake Note: Patient is here today for a physical. Button Clamper Required: Yes Button Clamper Language: Romanian Accompanied by: Self / Same As Patient Allergies No Known Allergies Allergy (Verified 03/16/24 09:48) Medication List - Last Reconciled 03/16/24 by Kevin Orozco PA-C acetaminophen ER 650 mg PO Q12H 30 days amlodipine-benazepril 10-40 mg 1 cap PO DAILY calcium carbonate 500 mg PO DAILY carvedilol (Coreg) 6.25 mg PO BID cholecalciferol (vitamin D3) (Vitamin D3) 25 mcg PO DAILY cyclobenzaprine 10 mg PO BEDTIME 90 days diclofenac sodium 1% 4 grams topical TID 1 month donepezil 5 mg PO DAILY doxycycline monohydrate 100 mg PO BID 5 days ezetimibe (Zetia) 10 mg PO DAILY hydrochlorothiazide 25 mg PO DAILY lidocaine 5% 1 appl topical BEDTIME 30 days magnesium oxide 400 mg PO DAILY melatonin 9 mg (3 x 3 mg) PO BEDTIME PRN 30 days miscellaneous medical supply 1 ea miscellaneous .nightly 99 days multivitamin 1 tab PO DAILY rosuvastatin 20 mg PO DAILY triamcinolone acetonide 0.5% 1 appl topical DAILY 15 days zolpidem 10 mg PO BEDTIME PRN 20 days Tobacco use date assessed: 03/16/24 Dental Screening Dental Screen Date: 03/16/24 Did you have a dental visit in the last 12 months?: Yes Did you have a dental problem in the last 6 months where you did not have access to dental care?: No Was dental information given to patient?: Patient has dentist HPI Annual Exam HPI Details Patient is a 63 y/o M here today for a routine annual physical. ??? Patient has a past medical history significant for morbid obesity, hypertension, left ventricular hypertrophy, right subclavian artery stenosis, PABLO, high cholesterol. .. Concern-->. Continues to have chronic lower back pain. He reports lidocaine 5% ointment is helpful. He is willing to do physical therapy .. Insomnia: he reports he continues to have issues with insomnia. Has used zolpidem 5 mg which has been effective though does wake up at 03:00. Has used 10 mg zolpidem which effectively gave him 7-8 hours of sleep. . Arterial disease: Patient followed by [facility]. Recent CTA chest showing left circumflex artery with 70% stenosis (. Most recent LDL of 101. Has been unable to tolerate statin therapy due to myalgias. 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 He more recently started Zetia 10 mg, will recheck lipid panel. Patient's most recent lipid panel showing suboptimally controlled LDL. .. HTN:? Patient's blood pressure today in office acceptable. He reports he does not regularly follow his blood pressure readings at home as he is feeling good . ? .. PABLO:? Continues to follow pulmonology .? It seems he needs a repeat home sleep study to evaluate the further need for CPAP machine at night. .. Class 2 obesity: Unfortunately has gained weight since last office visit. He does admit to some dietary indiscretion. He will try to work on being more physically active and adapt to better eating habits to reduce his weight Colonoscopy: Colonoscopy done in 2018 - normal repeat 10 years Vaccine: UTD with COVID vaccine, up-to-date with shingles vaccine, TDap , PVC ,Up to date with Flu Laboratory Tests 08/26/23 10/21/23 09:32 21:06 RBC 4.17 L Hgb 12.4 L Potassium 3.6 2.9 L* Cholesterol 206 H LDL Cholesterol, C alc 130 H PFSH Medical History Left atrial dilation COVID-19 vaccine series completed Cardiomegaly Binge-eating disorder, in full remission, moderate DJD (degenerative joint disease) GERD (gastroesophageal reflux disease) Sleep apnea with use of continuous positive airway pressure (CPAP) Morbid obesity Subclavian artery stenosis, right High cholesterol Shoulder pain, left Cholecystectomy planned Surgical History S/P laparoscopic sleeve gastrectomy Hx of colonoscopy History of umbilical hernia repair History of cholecystectomy Hx of cardiac cath Family History Father H/O ETOH abuse Hypertension Alzheimers disease Substance use disorder Mental health disorder Mother Medical history unknown Brother Hypertension Diabetes Social History Housing: Apartment Are you a primary administrator health care facility to a significant other at home: No Do you presently have visiting nurse or other home services: No Alcohol intake: never Patient Tobacco Use Status: Former Tobacco user e-Cigarette/Vaping Use: Never Used Second Hand Smoke Exposure: No service: No Current occupational status: retired Current occupational exposures/hazards: No Cognitive needs: No Hearing needs: No Vision needs: Yes Questionnaire PHQ-9 Over the last 2 weeks, how often have you been bothered by any of the following problems? 1. Little interest or pleasure in doing things: not at all 2. Feeling down, depressed, or hopeless: not at all 3. Trouble falling or staying asleep, or sleeping too much: not at all 4. Feeling tired or having little energy: not at all 5. Poor appetite or overeating: not at all 6. Feeling bad about yourself - or that you are a failure or have let yourself or your family down: not at all 7. Trouble concentrating on things, such as reading the newspaper or watching television: not at all 8. Moving or speaking so slowly that other people could have noticed. Or the opposite - being so fidgety or restless that you have been moving around a lot more than usual: not at all 9. Thoughts that you would be better off or of hurting yourself in some way: not at all Total score: 0 Depression Screening Interpretation: Negative Depression Screening Done: Yes 36597 - PHQ-9 Billing: Yes Source: Developed by Drs. Michele Ding, Rianna Ceja, Dario Haddad and colleagues, with an educational mir from [employer]. Thrive Questionnaire Date Thrive assessed: 03/16/24 I am a: Patient What is your living situation today?: I choose not to answer this question Within the past 12 months, did the food you bought not last and you didn't have the money to get more?: I choose not to answer this question Within the past 12 months, did you worry whether your food would run out before you got money to buy more?: I choose not to answer this question Do you have trouble paying for medicines?: I choose not to answer this question Do you have trouble getting transportation to medical appointments?: I choose not to answer this question Do you have trouble paying your heating and electricity bill?: I choose not to answer this question Do you have trouble taking care of your child, family member or friend?: I choose not to answer this question Do you have trouble with day-to-day activities such as bathing, preparing meals, shopping, managing finances, etc.?: I choose not to answer this question Are you currently unemployed and looking for a job?: Yes Are you interested in more education?: I choose not to answer this question Please select the resources that you would like help with: None Currently or been in a relationship where the following occur: I choose not to answer THRIVE Score: 0 AUDIT C Alcohol Use Questionnaire (AUDIT-C) 1. How often do you have a drink containing alcohol?: Never 3. How often do you have six or more drinks on one occasion?: Never Total Score: 0 FREDA-7 AMB Questionnaire FREDA-7 Date FREDA - 7 assessed: 03/16/24 Feeling nervous, anxious, or on edge: 0 = Not at all Not being able to stop or control worryin = Not at all Worrying too much about different things: 0 = Not at all Trouble relaxin = Not at all Being so restless that it is hard to sit still: 0 = Not at all Becoming easily annoyed or irritable: 0 = Not at all Feeling afraid as if something awful might happen: 0 = Not at all Total FREDA-7 score (0-4 normal; 5-9 mild; 10-14 moderate; 15-21 severe): 0 Source: Developed by Drs. Michele Ding, Rianna Ceja, Dario Haddad and colleagues, with an educational mir from [employer]. FREDA-7 Assessment Billing FREDA-7 Assessment Tool: FREDA-7 Assessment 38039 Review of Systems Const Denies body aches, Denies chills, Denies excessive sweating, Denies fatigue, Denies fever(s) and Denies headache(s) Eyes Denies blurry vision ENT Denies dysphagia, Denies vertigo, Denies dizziness, Denies headache(s), Denies hearing loss and Denies tinnitus Card Denies chest pain, Denies chest pain with activity, Denies syncope, Denies irregular heart rhythm and Denies dyspnea Resp Denies chest congestion, Denies cough, Denies hemoptysis, Denies dyspnea and Denies wheezing GI Denies abdominal pain, Denies melena, Denies hematochezia, Denies coffee ground emesis, Denies dysphagia, Denies diarrhea, Denies nausea and Denies vomiting Denies difficulty urinating, Denies dysuria, Denies urinary frequency, Denies urinary hesitancy and Denies urinary urgency Musc Reports back pain, Denies arthralgias, Denies limited range of motion, Denies muscle cramps and Denies muscle weakness Skin/Breast Denies rash and Denies skin ulcer Neuro Denies Abnormal speech present, Denies confusion, Denies vertigo, Denies dizziness, Denies syncope, Denies headache(s), Denies memory loss and Denies seizure-like activity Psych Denies anxiety, Denies confusion, Denies depression, Denies memory loss, Denies panic attacks and Denies paranoia Endo Denies excessive sweating, Denies fatigue, Denies flushing, Denies polydipsia and Denies polyuria Aller/Immun Denies wheezing Physical exam (Primary Care) Vital Signs: Last Vital Signs Pulse 80 03/16/24 09:37 BP 130/74 03/16/24 09:37 Pulse Ox 95 03/16/24 09:37 Oxygen Delivery Method Room Air 03/16/24 09:37 BMI result Body Mass Index 37.0 Tobacco/Smoking Status: Tobacco use Status Tobacco use date assessed 01/13/24 03/16/24 09:37 Patient Tobacco Use Status Former Tobacco user 03/16/24 09:37 Tobacco use type 10/23/23 15:56 e-Cigarette/Vaping Use Never Used 03/16/24 09:37 Depression Screening Interpretation: Negative Thrive Assessment: Date of Thrive Assessment Date Thrive assessed 01/13/24 03/16/24 09:37 Currently or been in a relationship where the following occur: I choose not to answer Const General: cooperative, comfortable, no acute distress, alert and awake; No confusion Orientation/consciousness: oriented to person, oriented to place, patient oriented x3 and No confusion HENMT Head: Yes normocephalic Ears: external ears normal and TM's normal bilaterally Face and sinus: No sinus tenderness Mouth: Normal oral and palatal mucosa present and tongue normal Teeth and gingiva: dentition normal and gingiva normal Throat: Yes posterior oropharynx normal, Yes tonsils normal and Yes uvula mid line Eyes Conjunctivae: conjunctivae normal Sclerae: sclerae normal Pupils: Equal, round and reactive pupils present EOM: EOMs intact bilaterally Direct Ophthalmoscopy: No no photophobia Neck Neck: Yes no lymphadenopathy, No tender and Yes no JVD Thyroid: Thyroid normal Carotids: no bruits Chest Chest palpation & inspection: no tenderness Resp Effort & Inspection: normal respiratory effort, no audible wheezes, not labored and no stridor Auscultation: no crackles, no rales, no rhonchi and no wheezes Cardio Jugular venous distension: no JVD Rate: regular rate, not bradycardic and not tachycardic Rhythm: regular rhythm Bruits: no carotid bruits Peripheral pulses: Peripheral pulses 2+ throughout GI Inspection: Yes normal to inspection, No abdominal wall ecchymosis and No visible herniation Palpation (GI): Soft to palpation, nontender, no guarding, not rigid and No hepatosplenomegaly present Auscultation: normoactive bowel sounds General: Yes no CVA tenderness Back/Spine/Pelvis Back: no CVA tenderness and No back tenderness Cervical Spine: cervical ROM normal Thoracic/Lumbar Spine: thoracic and lumbar spine normal to inspection, straight leg raise negative bilaterally, No thoraco-lumbar ROM limited and No lumbar spinal tenderness Skin Lesions: no lesions Rashes: no rashes Wounds: no wounds Neuro General: oriented to person, oriented to place, patient oriented x3, CN's II-XI intact bilaterally and No confusion Cranial nerves: Yes Equal, round and reactive pupils present and Yes Normal accommodation reflex present Cognition (Neuro): normal cognition Speech: No Abnormal speech present Gait exam (Neuro): Normal gait present Motor exam (neuro): 5/5 motor strength present throughout Extrem Right upper extremity: full ROM; no cyanosis Left upper extremity: full ROM; no cyanosis Right lower extremity: no edema Left lower extremity: no edema Psych Appearance: grossly normal Mental Status: mental status grossly normal Affect: normal affect Attitude: cooperative Thought process: Normal thought process present Coding Level of Care Code Est Pt Prev Care 40-64y(12653) Diagnoses Annual physical exam Z00.00 Coronary artery disease of [place] artery of [place] heart with stable angina pectoris I25.118 Coronary Disease-Associated Artery/Lesion type: [place] artery [place] vs. transplanted heart: [place] heart Associated angina: with stable angina Essential (primary) hypertension I10 PABLO (obstructive sleep apnea) G47.33 Lumbar spine painful on movement M54.5 Class 2 obesity E66.812 Additional Codes FREDA-7 Assessment Billing - FREDA-7 Assessment Tool: FREDA-7 Assessment 23376 ([id number]) PHQ-9 - 28696 - PHQ-9 Billing: Yes ([id number]) Assessment & Plan Assessment & Plan (1) Annual physical exam: Code(s): Z00.00 - Encounter for general adult medical examination without abnormal findings Category: Medical Plan: As per HPI (2) CAD (coronary artery disease): Code(s): I25.10 - Atherosclerotic heart disease of [place] coronary artery without angina pectoris Category: Medical Qualifiers: Coronary Disease-Associated Artery/Lesion type: [place] artery [place] vs. transplanted heart: [place] heart Associated angina: with stable angina Qualified Code(s): I25.118 - Atherosclerotic heart disease of [place] coronary artery with other forms of angina pectoris Plan: Patient continues to follow cardiology. Continues on statin therapy and beta- dieter. He denies any chest discomforts. Blood pressure seems to be well controlled. Goal LDL is to optimally be below 70. (3) Essential (primary) hypertension: Code(s): I10 - Essential (primary) hypertension Category: Medical Plan: Patient's blood pressure acceptable today in office. Will continue current dose of antihypertensive medication with goal blood pressure to be below 140/90 (4) PABLO (obstructive sleep apnea): Comment: This gentleman does have history of obstructive sleep apnea. Post sleeve gastrectomy, he has lost significant amount of weight. At present he is asymptomatic, and sleeps well. Plan : Do a home sleep study , to evaluate for any residual sleep apnea. In the meantime he is encouraged to continue losing weight. Sleep hygiene discussed. Advise that he should always sleep in lateral position, Will recheck him after the sleep study is done. Code(s): G47.33 - Obstructive sleep apnea (adult) (pediatric) Category: Medical Plan: Patient does use CPAP machine on a nightly basis with good effect. (5) Lumbar spine painful on movement: Code(s): M54.5 - Low back pain Category: Medical Plan: Patient has chronic lower back pain. Does use lidocaine 5% ointment which has been helpful. He is willing to 2 physical therapy. (6) Class 2 obesity: Code(s): E66.812 - Obesity, class 2 Category: Medical Plan: Patient does understand his BMI is over 35, unfortunately has gained weight since last office visit. He does admit to some dietary indiscretion and a pretty sedentary lifestyle. He will work on being more physically active and a dapting to better eating habits to reduce his weight Orders: Orders Microalbumin, Random (w Creat) Today I10 - Essential (primary) hypertension Complete Blood Count no Diff Today I10 - Essential (primary) hypertension Vitamin D 25-OH Total Today E53.8 - Deficiency of other specified B group vitamins PT Evaluation and Treatment Today M51.9 - Unspecified thoracic, thoracolumbar and lumbosacral intervertebral disc disorder, M54.5 - Low back pain Comprehensive [place]. Panel Fast Today I10 - Essential (primary) hypertension Prostate Specific Antigen Scr Today I10 - Essential (primary) hypertension, Z12.5 - Encounter for screening for malignant neoplasm of prostate Medications: Refilled lidocaine 5% 1 appl topical BEDTIME 30 days 50 grams 1RF M13.0 - Polyarthritis, unspecified, M54.5 - Low back pain
== END 2024-03-16 10:19 | disposition home or self-care (01) ==
PROVIDERS: PCP Physician Assistant; Visit Provider Physician Assistant
DX: Z00.00 Encounter for general adult medical examination without abnormal findings (principal); I25.118 Atherosclerotic heart disease of native coronary artery with other forms of angina pectoris; E66.812 Obesity, class 2; Z68.37 Body mass index [BMI] 37.0-37.9, adult; I10 Essential (primary) hypertension; G47.33 Obstructive sleep apnea (adult) (pediatric); M54.50 Low back pain, unspecified

== ENCOUNTER → 2024-03-16 09:35 | Outpatient (BNVA) | payer OTHER, SELFPAY | PROVIDERS: PCP Physician Assistant; Visit Provider Physician Assistant | DX: Z00.00 Encounter for general adult medical examination without abnormal findings (principal); I25.118 Atherosclerotic heart disease of native coronary artery with other forms of angina pectoris; I10 Essential (primary) hypertension; E66.812 Obesity, class 2; Z68.37 Body mass index [BMI] 37.0-37.9, adult; G47.33 Obstructive sleep apnea (adult) (pediatric); Z79.899 Other long term (current) drug therapy; Z99.89 Dependence on other enabling machines and devices | CPT/HCPCS: 96127 ==

== ENCOUNTER 2024-07-01 20:10 | Emergency (ER) | payer MEDICARE, SELFPAY ==
--- NOTE | ~2024-07-01 | XR_ITS ---
CLINICAL HISTORY: pain 3 view left shoulder Comparison: CR/MO - XR SHOULDER LT MIN 2V - 03/31/20 12:02 EST no prior report provided. Findings: No acute fractures or dislocations. The left humeral head is appropriately positioned with respect to the left glenoid. Kaxb-[id number] degenerative changes present at the left acromioclavicular joint. No focal consolidation or effusion identified within the visualized portion of the left lung. No radiopaque foreign body. IMPRESSION: 1. No acute fracture or dislocation injury identified at the left shoulder. This document has been electronically signed by: Kong Borrero MD on 07/01/2024 21:20:48
--- NOTE | ~2024-07-01 | CT_ITS ---
CLINICAL HISTORY: pain CT cervical spine without contrast Comparison: CR/NC - XR CERVICAL SPINE 3V - 01/19/21 10:08 EDT Findings: The visualized portions of the bilateral lung apices appear clear. No cervical spondylolisthesis identified. 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 Moderate to severe degenerative endplate changes are present at the cervical spine. Multilevel bilateral degenerative facet arthropathy also present at the cervical spine. No acute fractures or dislocations. No significant degenerative endplate changes at the cervical spine. Multilevel degenerative central canal and bilateral neural foraminal stenosis present at the cervical spine. Impression: 1. No acute fracture or dislocation injury identified at the cervical spine. 2. Multilevel degenerative changes present at the cervical spine as described above. This document has been electronically signed by: Kong Borrero MD on 07/02/2024 02:46:09
[2024-07-01 20:22] VITALS: BP 194/83; PULSE 72; RESP 18; TEMP 36.6; O2SAT 98; BMI 37.8
--- NOTE | 2024-07-01 20:25 | ECG_ITS ---
Test Reason : PAIN Blood Pressure : */* mmHG Vent. Rate : 65 BPM Atrial Rate : 65 BPM P-R Int : 186 ms QRS Dur : 92 ms QT Int : 402 ms P-R-T Axes : 45 23 18 degrees QTcB Int : 418 ms Normal sinus rhythm Normal ECG When compared with ECG of 14-Feb-2021 10:34, T wave inversion no longer evident in Lateral leads Referred By: Aaron Bullock Electronically Signed By: GWENDOLYN CARRILLO
--- NOTE | 2024-07-01 20:25 | ED.GENADULT ---
HPI - General Adult General Chief complaint: General Medical Stated complaint: Pain left shoulder Time Seen by Provider: 07/02/24 01:14 Source: patient Limitations: language barrier History of Present Illness ED Provider: Shaylee Zamora PA-C HPI narrative: 63-year-old male with a history of obesity, known arthritis, chronic left shoulder pain, degenerative joint disease, chronic neck pain chronic low back pain, hypertension, hyperlipidemia, coronary artery disease presents with a neck, upper back and left shoulder pain x3 days. Pain worse with movement of back, shoulder and neck. Patient denies trauma, or new activity that could have precipitated his symptoms. Denies weakness or paresthesia of left upper extremity. Related Data Home Medications ?Medication ?Instructions ?Recorded ?Confirmed multivitamin 1 tab PO DAILY 11/23/21 03/16/24 donepezil 5 mg tablet 5 mg PO DAILY 09/03/22 03/16/24 Previous Rx's ?Medication ?Instructions ?Recorded miscellaneous medical supply 1 ea miscellaneous .nightly 99 05/31/21 days #1 ea calcium carbonate 500 mg PO DAILY #90 tabs 08/14/22 acetaminophen 650 mg 650 mg PO Q12H 30 days #60 tabs 08/21/22 tablet,extended release ezetimibe 10 mg tablet (Zetia) 10 mg PO DAILY #90 tabs 08/26/23 carvedilol 6.25 mg tablet (Coreg) 6.25 mg PO BID #180 tabs 09/30/23 cyclobenzaprine 10 mg tablet 10 mg PO BEDTIME 90 days #90 tabs 11/11/23 cholecalciferol (vitamin D3) 25 25 mcg PO DAILY #90 caps 12/10/23 mcg (1,000 unit) capsule (Vitamin D3) diclofenac sodium 1 % topical gel 4 g topical TID 1 month #100 grams 12/10/23 hydrochlorothiazide 25 mg tablet 25 mg PO DAILY #90 tabs 12/22/23 doxycycline monohydrate 100 mg 100 mg PO BID 5 days #10 caps 01/13/24 capsule triamcinolone acetonide 0.5 % 1 appl topical DAILY 15 days #15 01/13/24 topical cream grams lidocaine 5 % topical ointment 1 appl topical BEDTIME 30 days #50 03/16/24 grams melatonin 3 mg capsule 9 mg (3 x 3 mg) PO BEDTIME PRN 03/27/24 sleep 30 days #90 caps amlodipine 10 mg-benazepril 40 mg 1 cap PO DAILY #90 caps 05/25/24 capsule zolpidem 10 mg tablet 10 mg PO BEDTIME PRN insomnia 20 06/23/24 days #20 tabs magnesium oxide 400 mg (241.3 mg 400 mg PO DAILY #90 tabs 06/28/24 magnesium) tablet rosuvastatin 20 mg tablet 20 mg PO DAILY #90 tabs 06/28/24 ketorolac 10 mg tablet 10 mg PO QID PRN pain #20 tabs 07/02/24 methocarbamol 750 mg tablet 1,500 mg (2 x 750 mg) PO Q8H PRN 07/02/24 pain, moderate #20 tabs Allergies Allergy/AdvReac Type Severity Reaction Status Date / Time No Known Allergies Allergy Verified 07/01/24 20:26 Review of Systems Review of Systems: Yes all other systems are reviewed and are negative Constitutional: Constitutional: Denies fatigue and Denies fever(s) ENT: Reports neck pain Cardiovascular: Cardiovascular: Denies chest pain and Denies dyspnea Respiratory: Respiratory: Denies dyspnea Gastrointestinal: Gastrointestinal: Denies abdominal pain, Denies nausea and Denies vomiting Musculoskeletal: Musculoskeletal: Reports back pain, Reports arthralgias, Denies muscle weakness, Reports neck pain, Denies numbness and Denies tingling Neurologic: Denies numbness and Denies tingling Endocrine: Endocrine: Denies fatigue PMFSH Past Medical History Attestation statement: The following information was validated with the patient. Medical History Left atrial dilation COVID-19 vaccine series completed Cardiomegaly Binge-eating disorder, in full remission, moderate DJD (degenerative joint disease) GERD (gastroesophageal reflux disease) Sleep apnea with use of continuous positive airway pressure (CPAP) Morbid obesity Subclavian artery stenosis, right High cholesterol Shoulder pain, left Cholecystectomy planned Surgical History S/P laparoscopic sleeve gastrectomy Hx of colonoscopy History of umbilical hernia repair History of cholecystectomy Hx of cardiac cath Family History Family History Father H/O ETOH abuse Hypertension Alzheimers disease Substance use disorder Mental health disorder Mother Medical history unknown Brother Hypertension Diabetes Social History Social History Housing: Apartment Are you a primary care coordination manager to a significant other at home: No Do you presently have visiting nurse or other home services: No Alcohol intake: never Patient Tobacco Use Status: Former Tobacco user e-Cigarette/Vaping Use: Never Used Second Hand Smoke Exposure: No Advance Directives: No Advance Directives Information Provided: Yes Do you have a plan to hurt others: No Plan service: No Current occupational status: retired Current occupational exposures/hazards: No Cognitive needs: No Hearing needs: No Vision needs: Yes Physical Exam ED Vital Signs: Vital Signs - 24 hr 07/01/24 20:22 07/02/24 03:01 Temperature 98 F 98.1 F Pulse Rate 72 65 Respiratory Rate 18 18 Blood Pressure 194/83 H 181/79 H Pulse Oximetry 98 97 Oxygen Delivery Method Room Air BMI result Body Mass Index 37.8 Const Other: Alert well-appearing Orientation/consciousness: patient oriented x3 Neck Other: Full range of motion, pain elicited with range of motion to the left Resp Effort & Inspection: normal respiratory effort Cardio Other: Normal peripheral perfusion, radial pulse +2 Skin Other: Warm dry no rash Neuro General: patient oriented x3, gait normal, no focal motor deficits and CN's II-XI intact bilaterally Extrem Other: Strength 5/5 bilateral upper extremities with resistance Psych Other: Cooperative Course Course Course Narrative: RME, this is a rapid medical exam performed by Reed Bullock please refer to primary provider for complete H&P- 63-year-old male with past medical history significant for obesity, coronary artery disease, uncontrolled hypertension, GERD presents for evaluation of left shoulder pain. His pain in his atraumatic. He had no injury. His pain is worse with movement. Clinically is likely musculoskeletal in origin, however given his risk factors and atraumatic pain, we will obtain an EKG, basic labs with a troponin. Medications Administered Discontinued Medications Generic Name Dose Route Start Last Admin Trade Name Freq PRN Reason Stop Dose Admin Ketorolac Tromethamine 15 mg 07/02/24 01:27 07/02/24 01:59 Ketorolac Tromethamine 15 Mg/Ml Vial IM 07/02/24 01:28 15 mg ONCE ONE Administration Methocarbamol 1,500 mg 07/02/24 01:27 07/02/24 02:00 Methocarbamol 750 Mg Tablet PO 07/02/24 01:28 1,500 mg ONCE ONE Administration Medical Decision Making Medical Decision Making [facility] Narrative: 63-year-old male with a history of obesity, known arthritis, chronic left shoulder pain, degenerative joint disease, chronic neck pain chronic low back pain, hypertension, hyperlipidemia, coronary artery disease presents with a neck, upper back and left shoulder pain x3 days. Pain worse with movement of back, shoulder and neck. Patient denies trauma, or new activity that could have precipitated his symptoms. Denies weakness or paresthesia of left upper extremity. Problem: Chronic pain in all distributions History: Per patient I have considered the following differential diagnoses: Chronic pain exacerbation, cervical radiculopathy, dissection , ACS Plan: Thought about dissection, the patient was hypertensive. However, he is well-appearing, he has had symptoms for 3 days, he is neurovascularly intact, radial pulses strong, and he has chronic neck back and arm pain. We will be giving an anti-inflammatory and a muscle relaxant. Scanning his neck. Atypical presentation for ACS was considered, he has known coronary artery disease, screening labs including 2 cardiac enzymes EKG obtained. I have independently reviewed the following tests: Labs: No leukocytosis, not anemic, troponin x2 flat, no electrolyte abnormality noted EKG: Normal sinus rhythm, rate of 65, no ischemic changes no ectopy QTC 418 X-ray left shoulder: indings: No acute fractures or dislocations. The left humeral head is appropriately positioned with respect to the left glenoid. [id number] degenerative changes present at the left acromioclavicular joint. No focal consolidation or effusion identified within the visualized portion of the left lung. No radiopaque foreign body. IMPRESSION: 1. No acute fracture or dislocation injury identified at the left shoulder. CT cervical spine:mpression: 1. No acute fracture or dislocation injury identified at the cervical spine. 2. Multilevel degenerative changes present at the cervical spine as described above. Lab Data 07/01/24 20:41 07/01/24 20:41 Labs: Lab Results 07/01/24 07/01/24 Range/Units 20:41 23:37 WBC 4.9 (4.8-10.8) X10*3/uL RBC 4.40 L (4.60-5.80) X10*6/uL Hgb 12.8 L (14.0-18.0) g/dl Hct 37.8 L (42.0-52.0) % MCV 85.9 (80.0-98.0) fL MCH 29.1 (27.0-33.0) pg MCHC 33.9 (31.0-36.0) g/dl RDW 13.2 (11.0-16.0) % Plt Count 230 (160-400) X10*3/uL MPV 9.5 (9.4-12.4) fL Immature Gran % (Auto) 0.0 (0.0-0.4) % Neut % (Auto) 57.0 (45-73) % Lymph % (Auto) 26.5 (20-40) % [place] % (Auto) 9.8 (2-11) % Eos % (Auto) 6.1 H (0-4) % Baso % (Auto) 0.6 (0-2) % Lymph # (Auto) 1.3 (1.2-4.9) X10*3/uL [place] # (Auto) 0.5 (0.1-1.2) X10*3/uL Eos # (Auto) 0.3 (0.0-0.4) X10*3/uL Baso # (Auto) 0.0 (0.0-0.2) X10*3/uL Abs Immat Gran (auto) 0.00 (0.00-0.03) X10*3/uL Absolute Neuts (auto) 2.8 (2.0-8.3) x10*3/uL Absolute Nucleated RBC 0.000 (0.0-0.012) X10*3/uL Nucleated RBC % (auto) 0.0 (0.0-0.2) /100WBC Sodium 145 (135-145) mmol/L Potassium 3.3 (3.3-5.1) mmol/L Chloride 110 H (96-108) mmol/L Carbon Dioxide 28 (22-29) mmol/L Anion Gap 10 L (12-20) BUN 20 H (9-16) mg/dL Creatinine 1.02 (0.5-1.4) mg/dL Estim Creat Clear Calc 79.1 Estimated GFR > 60 Random Glucose 94 (60-115) mg/dL Calcium 9.0 (8.4-10.2) mg/dL Total Bilirubin 0.4 (0.0-1.0) mg/dL AST 24 (5-37) U/L ALT 17 (0-40) U/L Alkaline Phosphatase 61 (39-117) U/L Troponin I High Sens 6.4 6.3 (<3.5-35.0) ng/L Total Protein 7.4 (6.5-8.0) g/dL Albumin 4.0 (3.5-5.0) g/dL Lipase 31 (8-78) U/L Discharge Plan Discharge Clinical Impression: Cervical spine pain, Chronic pain in left shoulder Patient Disposition: Home, Self-Care Instructions: Chronic Pain (ED), Chronic Neck Pain (DC) Additional Instructions: You are being treated for your chronic neck, back and arm pain. The x-rays reveal arthritis, which is already known. There was no change. The imaging of your neck reveals arthritis, that is already known, there are no changes. Use the ketorolac as an anti-inflammatory, take it as directed with food. Use the methocarbamol, this is a muscle relaxant, as needed for further pain. To note this medication will cause drowsiness, do not drive or operate machinery while taking the medication. Follow up with your primary care provider for your chronic ongoing pain. Prescriptions: New ketorolac 10 mg tablet 10 mg PO QID PRN (Reason: pain) Qty: 20 0RF Rx Instructions: maximum total duration of 5 days from all oral, intranasal, or parenteral formulations. Patient intramuscular dose of Toradol here in the emergency department methocarbamol 750 mg tablet 1,500 mg PO Q8H PRN (Reason: pain, moderate) Qty: 20 0RF No Action calcium carbonate 500 mg calcium (1,250 mg) tablet 500 mg PO DAILY Qty: 90 2RF acetaminophen 650 mg tablet extended release 650 mg PO Q12H 30 Days Qty: 60 3RF carvedilol [Coreg] 6.25 mg tablet 6.25 mg PO BID Qty: 180 3RF Rx Instructions: must administer with a meal/food cyclobenzaprine 10 mg tablet 10 mg PO BEDTIME 90 Days Qty: 90 2RF cholecalciferol (vitamin D3) [Vitamin D3] 25 mcg (1,000 unit) capsule 25 mcg PO DAILY Qty: 90 3RF diclofenac sodium 1 % gel 4 g topical TID 30 Days Qty: 100 4RF hydrochlorothiazide 25 mg tablet 25 mg PO DAILY Qty: 90 2RF melatonin 3 mg capsule 9 mg PO BEDTIME PRN (Reason: sleep) 30 Days Qty: 90 2RF amlodipine-benazepril 10-40 mg capsule 1 cap PO DAILY Qty: 90 3RF zolpidem 10 mg tablet 10 mg PO BEDTIME PRN (Reason: insomnia) 20 Days Qty: 20 3RF rosuvastatin 20 mg tablet 20 mg PO DAILY Qty: 90 1RF magnesium oxide 400 mg (241.3 mg magnesium) tablet 400 mg PO DAILY Qty: 90 1RF miscellaneous medical supply Misc 1 ea miscellaneous .nightly 99 Days Qty: 1 0RF donepezil 5 mg tablet 5 mg PO DAILY multivitamin Tablet 1 tab PO DAILY ezetimibe [Zetia] 10 mg tablet 10 mg PO DAILY Qty: 90 3RF doxycycline monohydrate 100 mg capsule 100 mg PO BID 5 Days Qty: 10 0RF triamcinolone acetonide 0.5 % cream 1 appl topical DAILY 15 Days Qty: 15 0RF lidocaine 5 % ointment 1 appl topical BEDTIME 30 Days Qty: 50 1RF Print Language: Upper Sorbian
[2024-07-01 20:51] LABS: MANUAL DIFF FLAG NO
[2024-07-01 20:53] LABS: Basophils Percent Auto 0.6 % (0-2); Eosinophils Absolute Auto 0.3 X10*3/uL (0.0-0.4); Eosinophils Percent Auto 6.1 % (0-4); Hematocrit 37.8 % (42.0-52.0); Hemoglobin 12.8 g/dl (14.0-18.0); Lymphocytes Absolute Auto 1.3 X10*3/uL (1.2-4.9); Lymphocytes Percent Auto 26.5 % (20-40); Mean Corpuscular HGB Conc 33.9 g/dl (31.0-36.0); Mean Corpuscular Hemoglobin 29.1 pg (27.0-33.0); Mean Corpuscular Volume 85.9 fL (80.0-98.0); Mean Platelet Volume 9.5 fL (9.4-12.4); Monocytes Absolute Auto 0.5 X10*3/uL (0.1-1.2); Monocytes Percent Auto 9.8 % (2-11); Neutrophils Absolute Auto 2.8 x10*3/uL (2.0-8.3); Platelet Count 230 X10*3/uL (160-400); Red Cell Distribution Width 13.2 % (11.0-16.0); White Blood Count 4.9 X10*3/uL (4.8-10.8)
[2024-07-01 21:11] LABS: Alanine Aminotransferase 17 U/L (0-40); Alkaline Phosphatase 61 U/L (39-117); Anion Gap 10 (12-20); Aspartate Amino Transferase 24 U/L (5-37); Bilirubin Total 0.4 mg/dL (0.0-1.0); Blood Urea Nitrogen 20 mg/dL (9-16); Carbon Dioxide 28 mmol/L (22-29); Chloride 110 mmol/L (96-108); Creatinine Clr Calc Pharmacy 79.1; Estimated Glomerular Filt Rate > 60; Glucose Random 94 mg/dL (60-115); Lipase 31 U/L (8-78); Potassium 3.3 mmol/L (3.3-5.1); Sodium 145 mmol/L (135-145); Total Protein 7.4 g/dL (6.5-8.0)
[2024-07-01 21:18] LABS: Troponin-I High Sensitivity 6.4 ng/L (<3.5-35.0)
--- OUTSIDE RECORDS SUMMARY | 2024-07-01 23:17 | XMS_ITS | Encounter Summary ---
Author Organization [employer] Address [address] [place] [address] Care Team Providers Care [employer] [address] [address] Name Role Phone Unavailable Primary Care Provider Unavailabl e Encounter Details Date Type Department Care Team (Latest Contact Info) Description 06/30/2020 Abstract [facility] CONVERSIONS Dental, Provider, DDS Social History Tobacco Use Types Packs/Day Years Used Date Smoking Tobacco: Never Assessed Sex and Gender Information Value Date Recorded Sex Assigned at Male 02/19/2022 10:15 AM EDT Legal Sex Male 10:15 AM EDT Gender Identity Male 02/19/2022 10:15 AM EDT Sexual Orientation Straight 02/19/2022 10 :15 AM EDT documented as of this encounter Plan of Treatment Not on file documented as of this encounter Visit Diagnoses Not on filedocumented in this encounter
--- OUTSIDE RECORDS SUMMARY | 2024-07-01 23:18 | XMS_ITS | Patient Health Record ---
Author Organization [facility] Address [address] [place] [address] Care Team Providers Care Drying Room Attendant Name Role Phone Nuha HAUSER, Magda Primary Care Provider Unavail able Kermit Joe Jr Unavailable [phone] Darek Mera MD Unavailable Unavailable Reason For Referral No Information Medications Medication SIG (Take, Route, Frequency, Duration) Notes Start Date End Date Status Ibuprofen 800 MG 1 tablet with food o r milk Orally Three times a day Active Aspir-81 81 MG 1 tablet Orally Once a day Active amLODIPine Besylate 5 MG 1 tablet Orally Once a day Active Colyte with Flavor Packs 240 GM As directed Orally Over the specified time. for 1 day(s) Active Atorvastatin Calcium 20 MG 1 tablet Oral ly Once a day Active Social History Tobacco Use: Social History Observation Description Date Details (start date - stop date) Former Smoker NA - NA Tobacco Use/Smoking Question Answer Notes Patient is a former smoker How long has it been since you last smoked? > 10 years Alcohol Screen Question Answer Notes Did you have a drink containing alcohol in the p ast year? No Points 0 Interpretation Negative Problems Problem Type SNOMED Code ICD Code Onset Dates Problem Status W/U Status Risk Notes Problem 767838009 Colon cancer screening (Z12.11) Active confirmed Problem 562782432 Long-term use of aspirin therapy (Z79.82) Active confirmed Plan Of Treatment Future Test Test Name Order Date COLONOSCOPY 02/07/2017 Insurance Providers Payer Name Payer Address Payer Phone Subscriber Number Group Number Insured Name Patient Relationship to Insured Coverage Start Date Coverage End Date [employer] [place] [address] [place] [phone] [id number] NANCY GARVIN Self - patient is the insured Medical (General) History Medical History History ICD Code hypertension elevated cholesterol elevated BMI Surgical History Surgery Date(Month/Year) umbilical hernia repair axillary artery stent placement
[2024-07-02 00:02] LABS: Troponin-I High Sensitivity 6.3 ng/L (<3.5-35.0)
[2024-07-02] MEDS: Ketorolac Tromethamine 15 MG/ML VIAL IM (01:59)
[2024-07-02] MEDS: methocarbamoL 750 MG TABLET 1500 MG PO (02:00)
[2024-07-02 03:01] VITALS: BP 181/79; PULSE 65; RESP 18; TEMP 36.7; O2SAT 97
[2024-07-02 03:49] VITALS: BP 181/79; PULSE 65; RESP 18; TEMP 36.7; O2SAT 97
== END 2024-07-02 03:50 | disposition home or self-care (01) ==
PROVIDERS: Physician Assistant; Emergency Provider Emergency Medicine; PCP Physician Assistant
DX: M54.2 Cervicalgia (principal); M25.512 Pain in left shoulder; R07.89 Other chest pain; Z79.899 Other long term (current) drug therapy
CPT/HCPCS: 36415; 72125; 73030; 80053; 83690; 84484; 85025; 93005; 96372; 99284; 99285; J1885

== ENCOUNTER → 2024-07-01 20:25 | Outpatient (BNV) | payer OTHER, MEDICAID, SELFPAY | PROVIDERS: PCP Physician Assistant; Visit Provider Radiology Diagnostic Radiology | DX: M25.512 Pain in left shoulder (principal) | CPT/HCPCS: 73030 ==

== ENCOUNTER → 2024-07-01 20:25 | Outpatient (BNV) | payer MEDICARE, SELFPAY | PROVIDERS: Emergency Provider Emergency Medicine; PCP Physician Assistant; Visit Provider Internal Medicine | DX: R07.9 Chest pain, unspecified (principal) | CPT/HCPCS: 93010 ==

== ENCOUNTER → 2024-07-02 01:27 | Outpatient (BNV) | payer MEDICARE, SELFPAY | PROVIDERS: Emergency Provider Emergency Medicine; PCP Physician Assistant; Visit Provider Radiology Diagnostic Radiology | DX: M25.512 Pain in left shoulder (principal) | CPT/HCPCS: 72125 ==

== ENCOUNTER 2024-08-14 14:05 | Outpatient (AMB) | payer MEDICARE, SELFPAY ==
--- NOTE | 2024-08-14 14:07 | A.OFFVIS_ITS ---
Vital Signs 08/14/24 14:10 Height 5 ft 4 in Weight 215 lb 2.738 oz BMI 36.9 BP 130/64 Blood Pressure Location Lt brachial Position Sitting Pulse 56 Pulse Source Monitor Intake Visit Reasons: 1 yr follow up Coding Consultant Required: Yes Coding Consultant Language: Master Lay Out Specialist Name: [email or web address] Accompanied by: Self / Same As Patient Allergies No Known Allergies Allergy (Verified 07/01/24 20:26) Medication List - Last Reconciled 08/14/24 by Omero Cruz MD acetaminophen ER 650 mg PO Q12H 30 days amlodipine-benazepril 10-40 mg 1 cap PO DAILY calcium carbonate 500 mg PO DAILY carvedilol (Coreg) 6.25 mg PO BID cholecalciferol (vitamin D3) (Vitamin D3) 25 mcg PO DAILY cyclobenzaprine 10 mg PO BEDTIME 90 days diclofenac sodium 1% 4 grams topical TID 1 month donepezil 5 mg PO DAILY doxycycline monohydrate 100 mg PO BID 5 days ezetimibe (Zetia) 10 mg PO DAILY hydrochlorothiazide 25 mg PO DAILY ketorolac 10 mg PO QID PRN lidocaine 5% 1 appl topical BEDTIME 30 days magnesium oxide 400 mg PO DAILY melatonin 9 mg (3 x 3 mg) PO BEDTIME PRN 30 days methocarbamol 1,500 mg (2 x 750 mg) PO Q8H PRN miscellaneous medical supply 1 ea miscellaneous .nightly 99 days multivitamin 1 tab PO DAILY rosuvastatin 20 mg PO DAILY triamcinolone acetonide 0.5% 1 appl topical DAILY 15 days zolpidem 10 mg PO BEDTIME PRN 20 days HPI Comments Details: Uriel returns for follow-up regarding vascular disease as well as hypertension. He has a history of right subclavian stenosis and weak right upper extremity pulse, present for a long time. However, he does not have any vascular symptoms. He also has hypertension. Morbid obesity and he did undergo bariatric surgery and lost weight. Nonobstructive CAD based on coronary CTA. Overall, he states he feels good. No new concerns. Discussed with patient using certified court/medical interpreter. [facility] Medical History Left atrial dilation COVID-19 vaccine series completed Cardiomegaly Binge-eating disorder, in full remission, moderate DJD (degenerative joint disease) GERD (gastroesophageal reflux disease) Sleep apnea with use of continuous positive airway pressure (CPAP) Morbid obesity Subclavian artery stenosis, right High cholesterol Shoulder pain, left Cholecystectomy planned Surgical History S/P laparoscopic sleeve gastrectomy Hx of colonoscopy History of umbilical hernia repair History of cholecystectomy Hx of cardiac cath Family History Father H/O ETOH abuse Hypertension Alzheimers disease Substance use disorder Mental health disorder Mother Medical history unknown Brother Hypertension Diabetes Social History Housing: Apartment Are you a primary veterinarian laboratory animal care to a significant other at home: No Do you presently have visiting nurse or other home services: No Alcohol intake: never Patient Tobacco Use Status: Former Tobacco user e-Cigarette/Vaping Use: Never Used Second Hand Smoke Exposure: No service: No Current occupational status: retired Current occupational exposures/hazards: No Cognitive needs: No Hearing needs: No Vision needs: Yes Review of Systems Const Denies chills, Denies fatigue, Denies fever(s), Denies frequent falls, Denies weakness, Denies weight gain and Denies weight loss ENT Denies dizziness Card Denies chest pain, Denies leg edema, Denies lightheadedness, Denies p alpitations, Denies dyspnea and Denies dyspnea on exertion Resp Denies cough, Denies dyspnea and Denies dyspnea on exertion GI Denies hematochezia Musc Denies abnormal gait, Denies muscle weakness, Denies numbness, Denies radiating pain into limb and Denies tingling Neuro Denies abnormal gait, Denies dizziness, Denies frequent falls, Denies numbness, Denies tingling and Denies weakness Endo Denies fatigue and Denies palpitations Physical Exam Vital Signs: Last Vital Signs Pulse 56 08/14/24 14:10 BP 130/64 08/14/24 14:10 BMI result Body Mass Index 36.9 Const General: comfortable and no acute distress Orientation/consciousness: patient oriented x3 HEENT Other: Unremarkable Head: Yes normal to inspection Neck Neck: Yes normal visual inspection Chest Chest palpation & inspection: normal inspection of the chest Resp Auscultation: clear to auscultation bilaterally Cardio Palpation: normal PMI Heart sounds: S1 normal heart sound present, S2 normal heart sound present, no gallops, no murmurs and no rubs GI Palpation (GI): Soft to palpation Back/Spine/Pelvis Other: unremarkable Skin General skin exam: no rashes or lesions noted Neuro General: patient oriented x3 Extrem General: Yes normal to inspection Psych Mental Status: mental status grossly normal Office Procedures EKG Details: EKG with sinus bradycardia at 56/Min; rightward axis; no significant ST-T changes; [place] [id number], Complete Assessment & Plan Assessment & Plan (1) CAD (coronary artery disease): Code(s): I25.10 - Atherosclerotic heart disease of [place] coronary artery without angina pectoris Category: Medical Qualifiers: Associated angina: with stable angina Coronary Disease-Associated Artery/Lesion type: [place] artery [place] vs. transplanted heart: [place] heart Qualified Code(s): I25.118 - Atherosclerotic heart disease of [place] coronary artery with other forms of angina pectoris Plan: Cardiac studies reviewed. Myocardial perfusion imaging study from 04/2021 reported to have mild intensity apical ischemia. Cardiac catheterization [place] 2014-angiographically normal coronary arteries. Coronary CTA performed 2022 including FFR. He does have stenosis in LAD and circumflex, but not considered to be hemodynamically significant. Also reports a patent foramina ovale. Clinically, no angina. Remains on aspirin, statins, Zetia. In the past, started Repatha but he did not take any of those injections. LDL 130 mg/dL. Less than ideal. Ideally weight loss would help but not clear if he can do. (2) Essential (primary) hypertension: Code(s): I10 - Essential (primary) hypertension Category: Medical Plan: Currently, on amlodipine, benazepril, carvedilol, hydrochlorothiazide. We will add spironolactone. Patient states home blood pressures are in the 150s systolic. Diastolic side okay. Prefer to check blood pressures on the left side due to weak pulses on the right side. (3) LVH (left ventricular hypertrophy): Code(s): I51.7 - Cardiomegaly Category: Medical Plan: In the last echocardiogram, moderate left ventricular hypertrophy noted. Could be related to poorly controlled hypertension. No heart failure symptoms or signs. (4) Subclavian artery stenosis, right: Code(s): I77.1 - Stricture of artery Category: Medical Plan: No clinical symptoms. Continue aspirin. Cardiac [id number]- distal right subclavian artery had chronic total occlusion with reconstitution distally, status post intervention and stenting. Plan Discussion Notes During the consultation, I discussed with the patient the uncontrolled nature of his hypertension and the need to enhance his treatment regimen to achieve better blood pressure control. I explained the benefits of an additional antihypertensive medication and its role in lowering blood pressure to a healthier range, reducing cardiovascular risk. The importance of dietary modifications, particularly sodium restriction, as a supportive measure for blood pressure management was stressed. I also discussed the need for follow-up blood tests to monitor response to the new medication. The patient understood and agreed with the proposed plan and was instructed to contact me should he experience any adverse effects or significant changes in his symptoms. The patient was given instructions on the new medication's use. Patient was informed and verbally consented to the use of an ambient scribe for clinic note documentation during this visit. Orders: Orders Basic Metabolic Panel 2 Weeks I10 - Essential (primary) hypertension Medications: New spironolactone 25 mg PO DAILY 90 tabs 1RF Patient Instructions: - Start taking the new blood pressure medication as prescribed. - Monitor your blood pressure regularly at home. - Reduce salt intake in your diet to help manage blood pressure. - Come in for blood work one to two weeks after starting the new medication. - Follow medication instructions and check with the pharmacy when picking up your prescription. - Contact me if you experience any side effects or changes in symptoms. Coding Level of Care Code Est Pt Level 4 (50975) Complex EM visit Add On G2211 Diagnoses Coronary artery disease of [place] artery of [place] heart with stable angina pectoris I25.118 Associated angina: with stable angina Coronary Disease-Associated Artery/Lesion type: [place] artery [place] vs. transplanted heart: [place] heart Essential (primary) hypertension I10 LVH (left ventricular hypertrophy) I51.7 Subclavian artery stenosis, right I77.1 CPT Codes EKG - CPT: 30034-[id number], Complete ([id number])
[2024-08-14 14:10] VITALS: BP 130/64; PULSE 56; BMI 36.9
== END 2024-08-14 14:32 | disposition home or self-care (01) ==
LOC: HO.HCS 14:05
PROVIDERS: PCP Physician Assistant; Visit Provider Internal Medicine
DX: I25.118 Atherosclerotic heart disease of native coronary artery with other forms of angina pectoris (principal); I10 Essential (primary) hypertension; I51.7 Cardiomegaly; I77.1 Stricture of artery
CPT/HCPCS: 93010; 99214; G2211

== ENCOUNTER → 2024-08-14 14:05 | Outpatient (BNVA) | payer MEDICARE, SELFPAY | PROVIDERS: PCP Physician Assistant; Visit Provider Internal Medicine | DX: I10 Essential (primary) hypertension (principal); I51.7 Cardiomegaly; I77.1 Stricture of artery; I25.118 Atherosclerotic heart disease of native coronary artery with other forms of angina pectoris; E66.01 Morbid (severe) obesity due to excess calories; Z98.84 Bariatric surgery status; Z68.36 Body mass index [BMI] 36.0-36.9, adult | CPT/HCPCS: 93005; 99212 ==

== ENCOUNTER 2024-08-17 08:47 | Outpatient (REF) | payer MEDICARE, SELFPAY ==
--- OUTSIDE RECORDS SUMMARY | 2024-08-17 09:24 | XMS_ITS | Clinical Summary ---
Author Organization [facility] [employer] Address [address] [place] [address] Care Team Providers Care Dike Supervisor Name Role Phone Unavailable Primary Care Provider Unavailabl e Allergies No known active allergies Medications amLODIPine (Norvasc) 10 MG tablet Take 1 tablet by mouth at bed time. 9 Active atorvastatin (Lipitor) 20 MG tablet Take 1 tablet by mouth at bed time. 8 Active Vitamin D High Potency 25 MCG (1000 UT) capsule Take 25 mcg by mouth in the morning. 2 Active carvedilol (Coreg) 6.25 MG tablet Take 6.25 mg by mouth with breakfast and with evening meal. 2 Active betamethasone dipropionate (Diprolene) 0.05 % ointment Apply topically every 12 (twelve) hours. 9 Active donepezil (Aricept) 5 MG tablet Take 5 mg by mouth in the morning. 2 Active Diclofenac Sodium 1 % gel APPLY 4 GRAMS THREE TIMES DAILY 2 Active polyethylene glycol, PEG, 3350 (Miralax) 17 g packet Mix 1 packet in 8 ounces of water, juice, coffee or tea and drink once a day 2 Active acetaminophen (Tylenol 8 Hour) 650 MG ER tablet TAKE 1 TABLET BY MOUTH EVERY TWELVE HOURS 3 Active amLODIPine-benaze pril (Lotrel) 10-40 MG capsule Take 1 capsule by mouth in the morning. 3 Active hydroCHLOROthiazi de (HYDRODiuril) 25 MG tablet Take 25 mg by mouth in the morning. 3 Active Oyster Shell Calcium 500 MG tablet Take 1 tablet by mouth in the morning. 3 Active rosuvastatin (Crestor) 20 MG tablet Take 20 mg by mouth in the morning. 3 Active Active Problems Problem Noted Date Diagnosed Date Dementia 03/28/2022 Immunizations Name Administration Dates Next Due Influenza injectable quadriv alent IIV4 with preservative 02/13/2019 Influenza injectable quadriv alent preservative free 05/14/2023,03/05/2022,02/28/2021,03/31 Influenza, seasonal, injecta ble, preservative free 03/11/2024 Pneumococcal Polysaccharide PPSV23 02/28/2021 Tdap 02/13/2019 Zoster, Recombinant 10/11/2022,08/02/2022 Social History Tobacco Use Types Packs/Day Years Used Date Smoking Tobacco: Never Passive Smoke Exposure: Never Smokeless Tobacco: Never Tobacco Cessation:Counseling Given: Not Answered Alcohol Use Standard Drinks/Week Comments Defer 0 (1 standard drink = 0.6 oz pur e alcohol) Sex and Gender Information Value Date Recorded Sex Assigned at Male 02/19/2022 10:15 AM EDT Legal Sex Male 10:15 AM EDT Gender Identity Male 02/19/2022 10:15 AM EDT Sexual Orientation Straight 02/19/2022 10 :15 AM EDT Last Filed Vital Signs Vital Sign Reading Time Taken Comments Blood Pressure 140/72 02/20/2023 1:31 PM EDT Pulse 65 01/04/2023 9:03 AM EDT Temperature - - Respiratory Rate - - Oxygen Saturation - - Inhaled Oxygen Concentration - - Weight - - Height - - Body Mass Index - - Plan of Treatment Health Maintenance Due Date Last Done Comments CT Colonography 1960 Colonoscopy 1960 Colorectal Cancer Screening 1960 Depression Screening 1960 FIT DNA/Cologuard 1960 FIT 1960 FOBT 1960 HIV Screening 1960 Lipid Panel 1960 SDOH Screening 1960 Sigmoidoscopy 1960 Alcohol/Substance Use Screening 1972 Hepatitis C Screening 1978 Pneumococcal Vaccine: 50+ Years (2 of 2 - PCV) 02/28/2022 02/28/2021 Dental Oral Exam 07/06/2023 01/04/2023, 03/28/2022 Dental Prophylaxis 07/06/2023 01/04/2023, 03/28/2022 COVID-19 Vaccine ( - season) 2023 03/20/2022, 03/07/2021, 12/08/2020 Dental X-Ray: Bitewings 01/06/2024 01/04/2023 Tobacco Screening 01/25/2024 01/24/2023 Dental X-Ray: Full Mouth 01/05/2026 01/04/2023 DTaP/Tdap/Td Vaccines (2 - Td or Tdap) 02/13/2029 02/13/2019 RSV Patients and Patients Aged 60 years or older (1 - 1-dose 75+ series) 08/05/2035 Zoster Vaccines Completed 10/11/2022, 08/02/2022 Influenza Vaccine Completed 03/11/2024, , 03/05/2022, Additional history exists HIB Vaccines Aged Out No longer eligi ble based on patient's age to complete this topic HPV Vaccines Aged Out No longer eligi ble based on patient's age to complete this topic Hepatitis A Vaccines Aged Out No long er eligible based on patient's age to complete this topic Hepatitis B Vaccines Aged Out No long er eligible based on patient's age to complete this topic IPV Vaccines Aged Out No longer eligi ble based on patient's age to complete this topic Meningococcal Vaccine Aged Out No theresa pernell eligible based on patient's age to complete this topic RSV under 20 months Aged Out No longe r eligible based on patient's age to complete this topic Rotavirus Vaccines Aged Out No longer eligible based on patient's age to complete this topic Procedures Procedure Name Priority Date/Time Associated Diagnosis Comments PROPHYLAXIS - ADULT Routine 01/04/2023 9 :00 AM EDT INTRAORAL - COMPLETE SERIES OF RADIOGRAPHIC IMAGES Routine 01/04/2023 9:00 AM EDT PERIODIC ORAL EVALUATION - ESTABLISHED PATIENT Routine 01/04/2023 9:00 AM EDT from Last 3 Months or Most Recently Relevant to Health Maintenance Insurance [facility] MEDICAID STAND ADULT [facility] LIMITED HSN [facility]ULL [employer]ET[employer] MEDICARE REPLACEMENT [facility] STANDARD DENT[facility] MEDICAID STAND ADULT
--- OUTSIDE RECORDS SUMMARY | 2024-08-17 09:24 | XMS_ITS | Encounter Summary ---
Author Organization [facility] [employer] Address [address] [place] [address] Care Team Providers Care Nanny Babysitter Name Role Phone Unavailable Primary Care Provider Unavailabl e Encounter Details Date Type Department Care Team (Latest Contact Info) Description 06/30/2020 Abstract [facility] CONVERSIONS Dental, Provider, DDS Social History Tobacco [...]
[2024-08-17 09:36] LABS: Anion Gap 12 (12-20); Blood Urea Nitrogen 12 mg/dL (9-16); Calcium 8.9 mg/dL (8.4-10.2); Carbon Dioxide 31 mmol/L (22-29); Chloride 106 mmol/L (96-108); Estimated Glomerular Filt Rate > 60; Glucose Random 87 mg/dL (60-115); Potassium 3.2 mmol/L (3.3-5.1); Sodium 146 mmol/L (135-145)
== END 2024-08-17 08:48 | disposition home or self-care (01) ==
LOC: HO.LAB 08:47
PROVIDERS: Absent Provider Internal Medicine; PCP Physician Assistant; Visit Provider Physician Assistant
DX: I10 Essential (primary) hypertension (principal)
CPT/HCPCS: 36415; 80048

== ENCOUNTER 2024-08-18 09:33 | Outpatient (AMB) | payer OTHER, SELFPAY ==
--- NOTE | 2024-08-18 09:49 | A.OFFPC_ITS ---
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 Maintenance Technician Name: ID # [id number] Accompanied by: Self / Same As Patient Allergies No Known Allergies Allergy (Verified 08/18/24 09:58) Medication List - Last Reconciled 08/18/24 by Kevin Orozco PA-C acetaminophen ER 650 mg PO Q12H 30 days amlodipine-benazepril 10-40 mg 1 cap PO DAILY calcium carbonate 500 mg PO DAILY carvedilol (Coreg) 6.25 mg PO BID cholecalciferol (vitamin D3) (Vitamin D3) 25 mcg PO DAILY cyclobenzaprine 10 mg PO BEDTIME 90 days diclofenac sodium 1% 4 grams topical TID 1 month donepezil 5 mg PO DAILY doxycycline monohydrate 100 mg PO BID 5 days ezetimibe (Zetia) 10 mg PO DAILY hydrochlorothiazide 25 mg PO DAILY ketorolac 10 mg PO QID PRN lidocaine 5% 1 appl topical BEDTIME 30 days magnesium oxide 400 mg PO DAILY melatonin 9 mg (3 x 3 mg) PO BEDTIME PRN 30 days methocarbamol 1,500 mg (2 x 750 mg) PO Q8H PRN miscellaneous medical supply 1 ea miscellaneous .nightly 99 days multivitamin 1 tab PO DAILY rosuvastatin 20 mg PO DAILY spironolactone 25 mg PO DAILY triamcinolone acetonide 0.5% 1 appl topical DAILY 15 days zolpidem 10 mg PO BEDTIME PRN 20 days Tobacco use date assessed: 08/18/24 Fall risk assessment: No Falls in past year Last assessed Fall Risk: 08/18/24 Dental Screening Dental Screen Date: 08/18/24 Did you have a dental visit in the last 12 months?: Yes Did you have a dental problem in the last 6 months where you did not have access to dental care?: No Was dental information given to patient?: Patient has dentist HPI f/u HTN/ HLD HPI Details Patient is a 64-year-old male here today for a follow-up visit ??? Patient has a past medical history significant for morbid obesity, hypertension, left ventricular hypertrophy, right subclavian artery stenosis, PABLO, high cholesterol. .. Concern-->. Continues to have chronic lower back pain. He reports lidocaine 5% ointment is helpful. He would like to see [facility] for pain reduction modality .. Insomnia: he reports he continues to have issues with insomnia. Has used zolpidem 5 mg which has been effective though does wake up at 03:00. Has used 10 mg zolpidem which effectively gave him 7-8 hours of sleep. . Arterial disease: Patient followed by [facility]. Recent CTA chest showing left circumflex artery with 70% stenosis (. Most recent LDL of 101. Has been unable to tolerate statin therapy due to myalgias. Has followed up with his full stack net developer whom recommended starting Repatha though the patient was not interested in injections. He more recently started Zetia 10 mg, will recheck lipid panel. Patient's most recent lipid panel showing suboptimally controlled LDL. .. HTN:? Patient's blood pressure today in office acceptable. Recently saw his full stack net developer whom started him on spironolactone 25 mg for better blood pressure control. He reports feeling somewhat fatigued with a new spironolactone and did increase his carvedilol to 2 tablets in the morning and 1 tablet at night. .. Lumbar disc disease: Patient interested in seeing [facility] for pain reduction modality. ? .. PABLO:? Continues to follow pulmonology .? It seems he needs a repeat home sleep study to evaluate the further need for CPAP machine at night. .. Class 2 obesity: Unfortunately has gained weight since last office visit. He does admit to some dietary indiscretion. He will try to work on being more physically active and adapt to better eating habits to reduce his weight Laboratory Tests 07/01/24 08/17/24 20:41 09:00 RBC 4.40 L Hgb 12.8 L Sodium 146 H Potassium 3.2 L Creatinine 0.71 [facility] Medical History Left atrial dilation COVID-19 vaccine series completed Cardiomegaly Binge-eating disorder, in full remission, moderate DJD (degenerative joint disease) GERD (gastroesophageal reflux disease) Sleep apnea with use of continuous positive airway pressure (CPAP) Morbid obesity Subclavian artery stenosis, right High cholesterol Shoulder pain, left Cholecystectomy planned Surgical History S/P laparoscopic sleeve gastrectomy Hx of colonoscopy History of umbilical hernia repair History of cholecystectomy Hx of cardiac cath Family History Father H/O ETOH abuse Hypertension Alzheimers disease Substance use disorder Mental health disorder Mother Medical history unknown Brother Hypertension Diabetes Social History Housing: Apartment Are you a primary patient care director to a significant other at home: No Do you presently have visiting nurse or other home services: No Alcohol intake: never Patient Tobacco Use Status: Former Tobacco user e-Cigarette/Vaping Use: Never Used Second Hand Smoke Exposure: No service: No Current occupational status: retired Current occupational exposures/hazards: No Cognitive needs: No Hearing needs: No Vision needs: Yes Questionnaire PHQ-9 Over the last 2 weeks, how often have you been bothered by any of the following problems? 1. Little interest or pleasure in doing things: not at all 2. Feeling down, depressed, or hopeless: not at all 3. Trouble falling or staying asleep, or sleeping too much: not at all 4. Feeling tired or having little energy: not at all 5. Poor appetite or overeating: not at all 6. Feeling bad about yourself - or that you are a failure or have let yourself or your family down: not at all 7. Trouble concentrating on things, such as reading the newspaper or watching television: not at all 8. Moving or speaking so slowly that other people could have noticed. Or the opposite - being so fidgety or restless that you have been moving around a lot more than usual: not at all 9. Thoughts that you would be better off or of hurting yourself in some way: not at all Total score: 0 Depression Screening Interpretation: Negative Depression Screening Done: Yes 91292 - PHQ-9 Billing: Yes Source: Developed by Drs. Michele Ding, Rianna Ceja, Dario Haddad and colleagues, with an educational mir from [employer]. Thrive Questionnaire Date Thrive assessed: 08/18/24 I am a: Patient What is your living situation today?: I have a steady place to live Within the past 12 months, did the food you bought not last and you didn't have the money to get more?: Often true Within the past 12 months, did you worry whether your food would run out before you got money to buy more?: Sometimes True Do you have trouble paying for medicines?: No Do you have trouble getting transportation to medical appointments?: No Do you have trouble paying your heating and electricity bill?: No Do you have trouble taking care of your child, family member or friend?: No Do you have trouble with day-to-day activities such as bathing, preparing meals, shopping, managing finances, etc.?: No Are you currently unemployed and looking for a job?: No Are you interested in more education?: No Please select the resources that you would like help with: None Currently or been in a relationship where the following occur: No concerns reported THRIVE Score: 2 AUDIT C Alcohol Use Questionnaire (AUDIT-C) 1. How often do you have a drink containing alcohol?: Never 3. How often do you have six or more drinks on one occasion?: Never Total Score: 0 FREDA-7 AMB Questionnaire FREDA-7 Date FREDA - 7 assessed: 08/18/24 Feeling nervous, anxious, or on edge: 0 = Not at all Not being able to stop or control worryin = Not at all Worrying too much about different things: 0 = Not at all Trouble relaxin = Not at all Being so restless that it is hard to sit still: 0 = Not at all Becoming easily annoyed or irritable: 0 = Not at all Feeling afraid as if something awful might happen: 0 = Not at all Total FREDA-7 score (0-4 normal; 5-9 mild; 10-14 moderate; 15-21 severe): 0 Source: Developed by Drs. Michele Ding, Rianna Ceja, Dario Haddad and colleagues, with an educational mir from [employer]. FREDA-7 Assessment Billing FREDA-7 Assessment Tool: FREDA-7 Assessment 40357 Review of Systems Const Denies headache(s) Eyes Denies loss of vision ENT Denies vertigo, Denies dizziness, Denies headache(s) and Denies sore throat Card Denies chest pain, Denies leg edema and Denies lightheadedness Resp Denies cough, Denies hemoptysis and Denies wheezing GI Denies abdominal pain, Denies melena, Denies constipation, Denies diarrhea and Denies vomiting Denies dysuria, Denies urinary frequency and Denies urinary urgency Musc Denies arthralgias, Denies joint swelling, Denies numbness and Denies tingling Neuro Denies Abnormal speech present, Denies behavioral changes, Denies vertigo, Denies dizziness, Denies headache(s), Denies loss of vision, Denies memory loss, Denies numbness and Denies tingling Psych Denies anxiety, Denies behavioral changes, Denies depression, Denies memory loss and Denies panic attacks Italo/Lymph Denies easy bleeding and Denies easy bruising Aller/Immun Denies wheezing Physical exam (Primary Care) Vital Signs: Last Vital Signs Temp 97.3 F 08/18/24 09:55 Pulse 58 08/18/24 09:55 BP 128/64 08/18/24 09:55 Pulse Ox 95 08/18/24 09:55 Oxygen Delivery Method Room Air 08/18/24 09:55 BMI result Body Mass Index 36.9 BMI Assessment/Plan discussion: High BMI High, discussed plan: lifestyle, weight reduction, dietary and physical activity Tobacco/Smoking Status: Tobacco use Status Tobacco use date assessed 08/18/24 08/18/24 09:57 Patient Tobacco Use Status Former Tobacco user 08/18/24 09:50 Tobacco use type 10/23/23 15:56 e-Cigarette/Vaping Use Never Used 08/18/24 09:50 PHQ-9: PHQ-9 Score PHQ-9: Total score 0 08/18/24 09:50 Depression Screening Interpretation: Negative Thrive Assessment: Date of Thrive Assessment Date Thrive assessed 08/18/24 08/18/24 09:50 Currently or been in a relationship where the following occur: No concerns reported Const General: healthy appearing, no acute distress, alert and awake Nutritional Appearance: well nourished Orientation/consciousness: oriented to person, oriented to place and oriented to time HENMT Ears: TM's normal bilaterally General nose exam: Normal nasal mucous membranes and turbinates present Eyes Conjunctivae: conjunctivae normal Sclerae: sclerae normal Pupils: Equal, round and reactive pupils present Neck Neck: Yes no lymphadenopathy and Yes no JVD Thyroid: Thyroid normal Carotids: no bruits Resp Effort & Inspection: normal respiratory effort and not tachypneic Auscultation: no crackles, no rales, no rhonchi and no wheezes Cardio Rate: regular rate Rhythm: regular rhythm Heart sounds: no murmurs and normal S1 and S2 GI Palpation (GI): Soft to palpation, nontender, no hepatomegaly and no splenomegaly Auscultation: normal bowel sounds Skin General skin exam: no rashes or lesions noted and dry skin Neuro General: oriented to person, oriented to place and oriented to time Cranial nerves: Yes Equal, round and reactive pupils present Speech: No Abnormal speech present Gait exam (Neuro): Normal gait present Motor exam (neuro): no tremor noted Extrem Right upper extremity: full ROM Left upper extremity: full ROM Right lower extremity: full ROM; no edema Left lower extremity: full ROM; no edema Psych Mental Status: mental status grossly normal Speech and movement: Normal speech and movement present Affect: normal affect Attitude: cooperative Thought process: Normal thought process present Coding Level of Care Code Est Pt Level 4 (46882) Diagnoses Coronary artery disease of [place] artery of [place] heart with stable angina pectoris I25.118 Coronary Disease-Associated Artery/Lesion type: [place] artery [place] vs. transplanted heart: [place] heart Associated angina: with stable angina Essential (primary) hypertension I10 PABLO (obstructive sleep apnea) G47.33 Lumbar spine painful on movement M54.5 Class 2 obesity E66.812 Additional Codes FREDA-7 Assessment Billing - FREDA-7 Assessment Tool: FREDA-7 Assessment 67510 ([id number]) PHQ-9 - 39281 - PHQ-9 Billing: Yes ([id number]) Assessment & Plan Assessment & Plan (1) CAD (coronary artery disease): Code(s): I25.10 - Atherosclerotic heart disease of [place] coronary artery without angina pectoris Category: Medical Qualifiers: Coronary Disease-Associated Artery/Lesion type: [place] artery [place] vs. transplanted heart: [place] heart Associated angina: with stable angina Qualified Code(s): I25.118 - Atherosclerotic heart disease of [place] coronary artery with other forms of angina pectoris Plan: Patient continues to follow cardiology. Continues on statin therapy and beta- dieter. He denies any chest discomforts. Blood pressure seems to be well controlled. Goal LDL is to optimally be below 70. (2) Essential (primary) hypertension: Code(s): I10 - Essential (primary) hypertension Category: Medical Plan: Patient's blood pressure acceptable today in office. Was recently started on spironolactone 25 mg though reports some fatigue with his medication. Advised on taking at night and he agrees to do so. Will continue current dose of antihypertensive medication with goal blood pressure to be below 140/90 (3) PABLO (obstructive sleep apnea): Comment: This gentleman does have history of obstructive sleep apnea. Post sleeve gastrectomy, he has lost significant amount of weight. At present he is asymptomatic, and sleeps well. Plan : Do a home sleep study , to evaluate for any residual sleep apnea. In the meantime he is encouraged to continue losing weight. Sleep hygiene discussed. Advise that he should always sleep in lateral position, Will recheck him after the sleep study is done. Code(s): G47.33 - Obstructive sleep apnea (adult) (pediatric) Category: Medical Plan: Patient does use CPAP machine on a nightly basis with good effect. (4) Lumbar spine painful on movement: Code(s): M54.5 - Low back pain Category: Medical Plan: Patient has chronic lower back pain. Does use lidocaine 5% ointment which has been helpful. Would like to see [facility] for pain reduction modality was low back (5) Class 2 obesity: Code(s): E66.812 - Obesity, class 2 Category: Medical Plan: Patient does understand his BMI is over 35, unfortunately has gained weight since last office visit. He does admit to some dietary indiscretion and a pretty sedentary lifestyle. He will work on being more physically active and adapting to better eating habits to reduce his weight Orders: Orders Comprehensive [place]. Panel Fast Today I10 - Essential (primary) hypertension Lipid Panel Today I25.118 - Atherosclerotic heart disease of [place] coronary artery with other forms of angina pectoris Complete Blood Count no Diff Today I10 - Essential (primary) hypertension Vitamin D 25-OH Total Today E55.9 - Vitamin D deficiency, unspecified Referrals Physiatry Referral M54.5 - Low back pain Patient Instructions: Goal: Blood pressure to remain below 140/90, LDL to be optimally below 70 Barriers: Adherence to physical activity and healthy eating habits
[2024-08-18 09:55] VITALS: BP 128/64; PULSE 58; TEMP 36.3; O2SAT 95; BMI 36.9
== END 2024-08-18 10:15 | disposition home or self-care (01) ==
LOC: HO.HMCH 09:35
PROVIDERS: PCP Physician Assistant; Visit Provider Physician Assistant
DX: I25.118 Atherosclerotic heart disease of native coronary artery with other forms of angina pectoris (principal); I10 Essential (primary) hypertension; E66.812 Obesity, class 2; Z68.36 Body mass index [BMI] 36.0-36.9, adult; G47.33 Obstructive sleep apnea (adult) (pediatric); M54.50 Low back pain, unspecified

== ENCOUNTER → 2024-08-18 09:33 | Outpatient (BNVA) | payer MEDICARE, MEDICAID, SELFPAY | PROVIDERS: PCP Physician Assistant; Visit Provider Physician Assistant | DX: I25.118 Atherosclerotic heart disease of native coronary artery with other forms of angina pectoris (principal); I10 Essential (primary) hypertension; G47.33 Obstructive sleep apnea (adult) (pediatric); M54.50 Low back pain, unspecified; E66.812 Obesity, class 2 | CPT/HCPCS: 96127 ==

== ENCOUNTER 2024-12-22 07:03 | Outpatient (REF) | payer MEDICARE, SELFPAY ==
--- OUTSIDE RECORDS SUMMARY | 2024-12-22 07:08 | XMS_ITS | Encounter Summary ---
Author Organization [employer] Address [address] [place] [address] Care Team Providers Care Venereal Disease Investigator Name Role Phone Unavailable Primary Care Provider Unavailabl e Encounter Details Date Type Department Care Team (Latest Contact Info) Description 06/30/2020 Abstract [facility] Dental, Provider, DDS Social History Tobacco [...]
--- OUTSIDE RECORDS SUMMARY | 2024-12-22 07:08 | XMS_ITS | Patient Health Record ---
Author Organization [facility] Address [address] [place] [address] Care Team Providers Care Lime Burner Name Role Phone Nuha HAUSER, Magda Primary Care Provider Unavail able Kermit Joe Jr Unavailable [phone] Darek Mera MD Unavailable Unavailable Reason For [...] Problem Status W/U Status Risk Notes Problem [id number] Colon cancer screening (Z12.11) Active confirmed Problem [id number] Long-term use of aspirin therapy (Z79.82) Active confirmed Plan Of Treatment Future Test Test Name Order Date COLONOSCOPY 02/07/2017 Insurance Providers Payer Name Payer Address Payer Phone Subscriber Number Group Number Insured Name Patient Relationship to Insured Coverage Start Date Coverage End Date [facility] [address] [place] [phone] [id number] NANCY GARVIN Self - patient is the insured Medical (General) History Medical History History ICD Code hypertension elevated cholesterol elevated BMI Surgical History Surgery Date(Month/Year) umbilical hernia repair axillary artery stent placement
--- OUTSIDE RECORDS SUMMARY | 2024-12-22 07:08 | XMS_ITS | Clinical Summary ---
Author Organization [employer] Address [address] [place] [address] Care Team Providers Care Blanket Maker Name Role Phone Unavailable Primary Care Provider [...] Noted Date Diagnosed Date Dementia 03/28/2022 Immunizations Immunization Administration Dates Next Due Influenza injectable quadriv [...] Panel 1960 SDOH Screening 1960 Sigmoidoscopy 1960 Disability Screening 1960 Alcohol/Substance Use Screening 1972 Hepatitis C Screening 1978 Pneumococcal Vaccine: 50+ Years (2 of 2 - PCV) 02/28/2022 02/28/2021 Dental Oral Exam 07/06/2023 01/04/2023, 03/28/2022 Dental Prophylaxis 07/06/2023 01/04/2023, 03/28/2022 COVID-19 Vaccine ( season) 2023 03/20/2022, 03/07/2021, 12/08/2020 Dental X-Ray: Bitewings 01/06/2024 01/04/2023 Tobacco Screening 01/25/2024 01/24/2023 Influenza Vaccine (#1) 2024 , 05/14/2023, 03/05/2022, Additional history exists Dental X-Ray: Full Mouth 01/05/2026 01/04/2023 DTaP/Tdap/Td Vaccines (2 - Td or Tdap) 02/13/2029 02/13/2019 RSV Patients and Patients Aged 60 years or older (1 - 1-dose 75+ series) 08/05/2035 Zoster Vaccines Completed 10/11/2022, 08/02/2022 HIB Vaccines Aged Out No longer eligi [...] patient's age to complete this topic Meningococcal B Vaccine Aged Out No l onger eligible based on patient's age to complete [...] Most Recently Relevant to Health Maintenance Insurance [facility] MEDICAID [address]AND [place] [address] [address] HSN FULL [employer] MEDICARE REPLACEMENT [facility] MEDICAID STAND ADULT
[2024-12-22 07:40] LABS: Hematocrit 40.1 % (42.0-52.0); Hemoglobin 13.1 g/dl (14.0-18.0); Mean Corpuscular HGB Conc 32.7 g/dl (31.0-36.0); Mean Corpuscular Hemoglobin 28.7 pg (27.0-33.0); Mean Corpuscular Volume 87.7 fL (80.0-98.0); NRBC Abs Auto 0.000 X10*3/uL (0.0-0.012); NRBC Pct Auto 0.0 /100WBC (0.0-0.2); Platelet Count 248 X10*3/uL (160-400); Red Blood Count 4.57 X10*6/uL (4.60-5.80); White Blood Count 5.5 X10*3/uL (4.8-10.8)
[2024-12-22 08:14] LABS: Alanine Aminotransferase 15 U/L (0-40); Albumin Level 4.2 g/dL (3.5-5.0); Alkaline Phosphatase 60 U/L (39-117); Anion Gap 11 (12-20); Aspartate Amino Transferase 21 U/L (5-37); Blood Urea Nitrogen 17 mg/dL (9-16); Calcium 9.2 mg/dL (8.4-10.2); Carbon Dioxide 32 mmol/L (22-29); Chloride 108 mmol/L (96-108); Cholesterol 218 mg/dL (<200); Estimated Glomerular Filt Rate > 60; HDL Cholesterol 58 mg/dL (>40); Potassium 3.5 mmol/L (3.3-5.1); Sodium 147 mmol/L (135-145); Total Protein 7.4 g/dL (6.5-8.0); Triglycerides 96 mg/dL (<150)
[2024-12-22 08:52] LABS: Microalbum/Creatinine Ratio Ur 30.2 ug/mg cr (<30)
== END 2024-12-22 07:04 | disposition home or self-care (01) ==
LOC: HO.LAB 07:03
PROVIDERS: Visit Provider Physician Assistant
DX: Z12.5 Encounter for screening for malignant neoplasm of prostate (principal); I10 Essential (primary) hypertension; E53.8 Deficiency of other specified B group vitamins; I25.118 Atherosclerotic heart disease of native coronary artery with other forms of angina pectoris; E55.9 Vitamin D deficiency, unspecified; R97.20 Elevated prostate specific antigen [PSA]; G47.33 Obstructive sleep apnea (adult) (pediatric); E66.812 Obesity, class 2; Z68.37 Body mass index [BMI] 37.0-37.9, adult; Z79.899 Other long term (current) drug therapy
CPT/HCPCS: 36415; 80053; 80061; 82043; 82306; 82570; 84153; 85027; 99212

== ENCOUNTER 2024-12-22 10:38 | Outpatient (AMB) | payer MEDICARE, SELFPAY ==
--- NOTE | 2024-12-22 10:44 | MHC.PC.OV ---
Vital Signs 12/22/24 10:45 Height 5 ft 4 in Weight 218 lb 6 oz BMI 37.5 BP 140/60 H Blood Pressure Location Lt brachial Position Sitting Pulse 60 Pulse Source Pulse Oximeter Temp 97.5 F Temp Source Temporal Artery Scan Pulse Oximetry (%) 93 Oxygen Delivery Method Room Air Intake Visit Reasons: f/u hTN/ HLD / CAD Intake Note: Patient is here to follow up on HTN, HLD, CAD. 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 Name: ID #[id number] Information Interpreted: non-clinical & clinical Rn Outpatient Surgery: Not Required per policy Accompanied by: Self / Same As Patient Allergies No Known Allergies Allergy (Verified 12/22/24 11:10) Medication List - Last Reconciled 12/22/24 by Kevin Orozco PA-C acetaminophen ER 650 mg PO Q12H 30 days amlodipine-benazepril 10-40 mg 1 cap PO DAILY atorvastatin (Lipitor) 80 mg PO DAILY 90 days calcium carbonate 500 mg PO DAILY carvedilol (Coreg) 6.25 mg PO BID cholecalciferol (vitamin D3) (Vitamin D3) 25 mcg PO DAILY cyclobenzaprine 10 mg PO BEDTIME 90 days diclofenac sodium 1% 4 grams topical TID 1 month Held on 01/13/24. Instructions: Doctor's Order donepezil 5 mg PO DAILY ezetimibe 10 mg PO DAILY finasteride 5 mg PO DAILY 90 days hydrochlorothiazide 25 mg PO DAILY ketorolac 10 mg PO QID PRN lidocaine 5% 1 appl topical BEDTIME 30 days magnesium oxide 400 mg PO DAILY melatonin 9 mg (3 x 3 mg) PO BEDTIME PRN 30 days methocarbamol 1,500 mg (2 x 750 mg) PO Q8H PRN miscellaneous medical supply 1 ea miscellaneous .nightly 99 days multivitamin 1 tab PO DAILY spironolactone 25 mg PO DAILY triamcinolone acetonide 0.5% 1 appl topical DAILY 15 days zolpidem 10 mg PO BEDTIME PRN 20 days Tobacco use date assessed: 12/22/24 Fall risk assessment: 1 Fall in past year Last assessed Fall Risk: 12/22/24 Dental Screening Dental Screen Date: 08/18/24 HPI f/u hTN/ HLD / CAD HPI Details Patient is a 64-year-old male here today for a follow-up visit ??? Patient has a past medical history significant for morbid obesity, hypertension, left ventricular hypertrophy, right subclavian artery stenosis, PABLO, high cholesterol. .. Insomnia: he reports he continues to have issues with insomnia. Has used zolpidem 5 mg which has been effective though does wake up at 03:00. Has used 10 mg zolpidem which effectively gave him 7-8 hours of sleep. . Arterial disease: Most recent lipid panel elevated showing LDL of 140. He admits to not consistently taking his cholesterol medication due to side effect. Patient followed by [facility]. Recent CTA chest showing left circumflex artery with 70% stenosis (. Most recent LDL of 101. Has been unable to tolerate statin therapy due to myalgias. Has followed up with his sales support coordinator whom recommended starting Repatha though the patient was not interested in injections. He more recently started Zetia 10 mg. Patient's most recent lipid panel showing suboptimally controlled LDL. PLAN: Will transitioned him from rosuvastatin to atorvastatin high dose to reduce cardiovascular risk. .. HTN:? Patient's blood pressure today slightly elevated. .. Elevated PSA. Most recent PSA slightly above 5. He denies any urinary symptoms such as nocturia or weak urinary stream. He is willing to start finasteride to help reduce size of prostate. Will recheck PSA prior to next office visit. Saturations have been made for urology evaluation .. Lumbar disc disease: Patient interested in seeing [facility] for pain reduction modality. ? .. PABLO:? Continues to follow pulmonology .? It seems he needs a repeat home sleep study to evaluate the further need for CPAP machine at night. .. Class 2 obesity: Unfortunately has gained weight since last office visit. He does admit to some dietary indiscretion. He will try to work on being more physically active and adapt to better eating habits to reduce his weight Laboratory Tests 12/22/24 12/22/24 07:15 07:18 Cholesterol 218 H LDL Cholesterol, C alc 141 H PSA Screen 5.95 H Urine Microalbumin 9.0 [facility] Medical History Left atrial dilation COVID-19 vaccine series completed Cardiomegaly Binge-eating disorder, in full remission, moderate DJD (degenerative joint disease) GERD (gastroesophageal reflux disease) Sleep apnea with use of continuous positive airway pressure (CPAP) Morbid obesity Subclavian artery stenosis, right High cholesterol Shoulder pain, left Cholecystectomy planned Surgical History S/P laparoscopic sleeve gastrectomy Hx of colonoscopy History of umbilical hernia repair History of cholecystectomy Hx of cardiac cath Family History Father H/O ETOH abuse Hypertension Alzheimers disease Substance use disorder Mental health disorder Mother Medical history unknown Brother Hypertension Diabetes Social History Housing: Apartment Are you a primary care provider to a significant other at home: No Do you presently have visiting nurse or other home services: No Alcohol intake: never Patient Tobacco Use Status: Former Tobacco user e-Cigarette/Vaping Use: Never Used Second Hand Smoke Exposure: Yes service: No Current occupational status: retired Current occupational exposures/hazards: No Cognitive needs: No Hearing needs: No Vision needs: Yes Questionnaire Thrive Questionnaire Date Thrive assessed: 08/18/24 I am a: Patient What is your living situation today?: I have a steady place to live Within the past 12 months, did the food you bought not last and you didn't have the money to get more?: Often true Within the past 12 months, did you worry whether your food would run out before you got money to buy more?: Sometimes True Do you have trouble paying for medicines?: No Do you have trouble getting transportation to medical appointments?: No Do you have trouble paying your heating and electricity bill?: No Do you have trouble taking care of your child, family member or friend?: No Do you have trouble with day-to-day activities such as bathing, preparing meals, shopping, managing finances, etc.?: No Are you currently unemployed and looking for a job?: No Are you interested in more education?: No Please select the resources that you would like help with: None Currently or been in a relationship where the following occur: No concerns reported THRIVE Score: 2 FREDA-7 AMB Questionnaire FREDA-7 Date FREDA - 7 assessed: 08/18/24 Source: Developed by Drs. Michele Ding, Rianna Ceja, Dario Haddad and colleagues, with an educational mir from [employer]. Review of Systems Const Denies headache(s) Eyes Denies loss of vision ENT Denies vertigo, Denies dizziness, Denies headache(s) and Denies sore throat Card Denies chest pain, Denies leg edema and Denies lightheadedness Resp Denies cough, Denies hemoptysis and Denies wheezing GI Denies abdominal pain, Denies melena, Denies constipation, Denies diarrhea and Denies vomiting Denies dysuria, Denies urinary frequency and Denies urinary urgency Musc Denies arthralgias, Denies joint swelling, Denies numbness and Denies tingling Neuro Denies Abnormal speech present, Denies behavioral changes, Denies vertigo, Denies dizziness, Denies headache(s), Denies loss of vision, Denies memory loss, Denies numbness and Denies tingling Psych Denies anxiety, Denies behavioral changes, Denies depression, Denies memory loss and Denies panic attacks Italo/Lymph Denies easy bleeding and Denies easy bruising Aller/Immun Denies wheezing Physical exam (Primary Care) Vital Signs: Last Vital Signs Temp 97.5 F 12/22/24 10:45 Pulse 60 12/22/24 10:45 BP 140/60 H 12/22/24 10:45 Pulse Ox 93 12/22/24 10:45 Oxygen Delivery Method Room Air 12/22/24 10:45 BMI result Body Mass Index 37.5 BMI Assessment/Plan discussion: High BMI High, discussed plan: lifestyle, weight reduction, dietary and physical activity Tobacco/Smoking Status: Tobacco use Status Tobacco use date assessed 12/22/24 12/22/24 10:50 Patient Tobacco Use Status Former Tobacco user 12/22/24 10:50 Tobacco use type 10/23/23 15:56 e-Cigarette/Vaping Use Never Used 12/22/24 10:50 Thrive Assessment: Date of Thrive Assessment Date Thrive assessed 08/18/24 12/22/24 10:50 Currently or been in a relationship where the following occur: No concerns reported Const General: healthy appearing, no acute distress, alert and awake Nutritional Appearance: well nourished Orientation/consciousness: oriented to person, oriented to place and oriented to time HENMT Ears: TM's normal bilaterally General nose exam: Normal nasal mucous membranes and turbinates present Eyes Conjunctivae: conjunctivae normal Sclerae: sclerae normal Pupils: Equal, round and reactive pupils present Neck Neck: Yes no lymphadenopathy and Yes no JVD Thyroid: Thyroid normal Carotids: no bruits Resp Effort & Inspection: normal respiratory effort and not tachypneic Auscultation: no crackles, no rales, no rhonchi and no wheezes Cardio Rate: regular rate Rhythm: regular rhythm Heart sounds: no murmurs and normal S1 and S2 GI Palpation (GI): Soft to palpation, nontender, no hepatomegaly and no splenomegaly Auscultation: normal bowel sounds Skin General skin exam: no rashes or lesions noted and dry skin Neuro General: oriented to person, oriented to place and oriented to time Cranial nerves: Yes Equal, round and reactive pupils present Speech: No Abnormal speech present Gait exam (Neuro): Normal gait present Motor exam (neuro): no tremor noted Extrem Right upper extremity: full ROM Left upper extremity: full ROM Right lower extremity: full ROM; no edema Left lower extremity: full ROM; no edema Psych Mental Status: mental status grossly normal Speech and movement: Normal speech and movement present Affect: normal affect Attitude: cooperative Thought process: Normal thought process present Coding Level of Care Code Est Pt Level 4 (83834) Diagnoses Elevated PSA R97.20 Coronary artery disease of [place] artery of [place] heart with stable angina pectoris I25.118 Associated angina: with stable angina Coronary Disease-Associated Artery/Lesion type: [place] artery [place] vs. transplanted heart: [place] heart Essential (primary) hypertension I10 PABLO (obstructive sleep apnea) G47.33 Class 2 obesity E66.812 Assessment & Plan Assessment & Plan (1) Elevated PSA: Code(s): R97.20 - Elevated prostate specific antigen [PSA] Category: Medical Plan: Noted elevated PSA at 5.9 most recent labs. He denies any urinary symptoms such as nocturia weak urinary stream. He is willing to start finasteride and rechecking labs to see if PSA reduce his. (2) CAD (coronary artery disease): Code(s): I25.10 - Atherosclerotic heart disease of [place] coronary artery without angina pectoris Category: Medical Qualifiers: Associated angina: with stable angina Coronary Disease-Associated Artery/Lesion type: [place] artery [place] vs. transplanted heart: [place] heart Qualified Code(s): I25.118 - Atherosclerotic heart disease of [place] coronary artery with other forms of angina pectoris Plan: Patient continues to follow cardiology. Has not been consistent with the use of his cholesterol medication due to side effect. Explain the cardiovascular risk that he does have and patient does agree and understand to restart cholesterol medication.. He is willing to be transitioned to atorvastatin 80 and continues Zetia 10. He denies any chest discomforts. Blood pressure seems to be well controlled. Goal LDL is to optimally be below 70. (3) Essential (primary) hypertension: Code(s): I10 - Essential (primary) hypertension Category: Medical Plan: Patient's blood pressure acceptable today in office. Patient continues on multiple antihypertensive medications. Will continue current dose of antihypertensive medication with goal blood pressure to be below 140/90 (4) PABLO (obstructive sleep apnea): Comment: This gentleman does have history of obstructive sleep apnea. Post sleeve gastrectomy, he has lost significant amount of weight. At present he is asymptomatic, and sleeps well. Plan : Do a home sleep study , to evaluate for any residual sleep apnea. In the meantime he is encouraged to continue losing weight. Sleep hygiene discussed. Advise that he should always sleep in lateral position, Will recheck him after the sleep study is done. Code(s): G47.33 - Obstructive sleep apnea (adult) (pediatric) Category: Medical Plan: Patient does use CPAP machine on a nightly basis with good effect. (5) Class 2 obesity: Code(s): E66.812 - Obesity, class 2 Category: Medical Plan: Patient does understand his BMI is over 35, unfortunately has gained weight since last office visit. He does admit to some dietary indiscretion and a pretty sedentary lifestyle. He will work on being more physically active and adapting to better eating habits to reduce his weight Orders: Orders Prostate Specific Antigen Scr Today R97.20 - Elevated prostate specific antigen [PSA], Z12.5 - Encounter for screening for malignant neoplasm of prostate Lipid Panel Today I25.118 - Atherosclerotic heart disease of [place] coronary artery with other forms of angina pectoris Vitamin B12 and Folate Today E53.8 - Deficiency of other specified B group vitamins Medications: New atorvastatin (Lipitor) 80 mg PO DAILY 90 tabs 1RF 90 days I25.118 - Atherosclerotic heart disease of [place] coronary artery with other forms of angina pectoris finasteride 5 mg PO DAILY 90 tabs 1RF 90 days R97.20 - Elevated prostate specific antigen [PSA] Discontinued rosuvastatin Discontinued Reason: Doctor's Order 20 mg PO DAILY 90 tabs 1RF I25.10 - Atherosclerotic heart disease of [place] coronary artery without angina pectoris Patient Instructions: Goal: LDL to be below 7.0, blood pressure to remain below 140/90 Barriers: Adherence to physical activity and healthy eating habits
[2024-12-22 10:45] VITALS: BP 140/60; PULSE 60; TEMP 36.4; O2SAT 93; BMI 37.5
== END 2024-12-22 11:19 | disposition home or self-care (01) ==
LOC: HO.HMCH 10:40
PROVIDERS: PCP Physician Assistant; Visit Provider Physician Assistant
DX: I25.118 Atherosclerotic heart disease of native coronary artery with other forms of angina pectoris (principal); E66.812 Obesity, class 2; Z68.37 Body mass index [BMI] 37.0-37.9, adult; R97.20 Elevated prostate specific antigen [PSA]; I10 Essential (primary) hypertension; G47.33 Obstructive sleep apnea (adult) (pediatric)

== ENCOUNTER 2025-03-22 09:41 | Outpatient (REF) | payer MEDICARE, SELFPAY ==
[2025-03-22 10:44] LABS: Hematocrit 38.7 % (42.0-52.0); Hemoglobin 12.6 g/dl (14.0-18.0); Mean Corpuscular HGB Conc 32.6 g/dl (31.0-36.0); Mean Corpuscular Hemoglobin 29.2 pg (27.0-33.0); Mean Corpuscular Volume 89.6 fL (80.0-98.0); NRBC Abs Auto 0.000 X10*3/uL (0.0-0.012); NRBC Pct Auto 0.0 /100WBC (0.0-0.2); Platelet Count 233 X10*3/uL (160-400); Red Blood Count 4.32 X10*6/uL (4.60-5.80); White Blood Count 4.4 X10*3/uL (4.8-10.8)
[2025-03-22 11:20] LABS: Alanine Aminotransferase 20 U/L (0-40); Albumin Level 4.1 g/dL (3.5-5.0); Alkaline Phosphatase 56 U/L (39-117); Anion Gap 10 (12-20); Aspartate Amino Transferase 23 U/L (5-37); Blood Urea Nitrogen 18 mg/dL (9-16); Calcium 9.2 mg/dL (8.4-10.2); Carbon Dioxide 28 mmol/L (22-29); Chloride 111 mmol/L (96-108); Cholesterol 182 mg/dL (<200); Estimated Glomerular Filt Rate > 60; HDL Cholesterol 63 mg/dL (>40); Potassium 4.4 mmol/L (3.3-5.1); Sodium 145 mmol/L (135-145); Total Protein 7.0 g/dL (6.5-8.0); Triglycerides 59 mg/dL (<150)
[2025-03-22 11:33] LABS: Folate 10.0 ng/mL (> or = 4.0); Vitamin B12 427 pg/mL (200-900)
--- OUTSIDE RECORDS SUMMARY | 2025-03-22 11:41 | XMS_ITS | Encounter Summary ---
Author Organization [employer] Address [address] [place] [address] Care Team Providers Care Upholstery Handler Name Role Phone Unavailable Primary Care Provider Unavailabl e Encounter Details Date Type Department Care Team (Latest Contact Info) Description 06/30/2020 Abstract [facility] CONVERSIONS Dental, Provider, DDS Social History [...]
--- OUTSIDE RECORDS SUMMARY | 2025-03-22 11:41 | XMS_ITS | Clinical Summary ---
Author Organization [employer] Address [address] [place] [address] Care Team Providers Care Java Engineer Name Role Phone Unavailable Primary Care Provider [...] Problems Problem Noted Date Diagnosed Date Dementia ([facility]/HCC) 03/28/2022 Immunizations Immunization Administration Dates Next Due [...] 01/04/2023, 03/28/2022 Dental Prophylaxis 07/06/2023 01/04/2023, 03/28/2022 Dental X-Ray: Bitewings 01/06/2024 01/04/2023 Tobacco Screening 01/25/2024 01/24/2023 COVID-19 Vaccine ( - season) 2024 03/20/2022, 03/07/2021, 12/08/2020 Influenza Vaccine (#1) 2024 , 05/14/2023, 03/05/2022, [...] Most Recently Relevant to Health Maintenance Insurance [facility] MEDICAID STAND ADULT [facility] LIMITED HSN FULL AETNA MEDICARE [facility]PLACEMENT [facility] STANDARD DENTAL-[facility] MEDICAID STAND ADULT
== END 2025-03-22 09:42 | disposition home or self-care (01) ==
LOC: HO.LAB 09:41
PROVIDERS: PCP Physician Assistant; Visit Provider Physician Assistant
DX: Z12.5 Encounter for screening for malignant neoplasm of prostate (principal); I10 Essential (primary) hypertension; I25.118 Atherosclerotic heart disease of native coronary artery with other forms of angina pectoris; E55.9 Vitamin D deficiency, unspecified; E53.8 Deficiency of other specified B group vitamins; R97.20 Elevated prostate specific antigen [PSA]
CPT/HCPCS: 36415; 80053; 80061; 82306; 82607; 82746; 84153; 85027

== ENCOUNTER 2025-03-23 09:04 | Outpatient (AMB) | payer MEDICARE, SELFPAY ==
--- NOTE | 2025-03-23 09:19 | MHC.PC.OV ---
Vital Signs 03/23/25 09:20 Height 5 ft 4 in Weight 226 lb 4 oz BMI 38.8 BP 138/60 Blood Pressure Location Lt brachial Position Sitting Pulse 81 Pulse Source Pulse Oximeter Temp 97.1 F Temp Source Temporal Artery Scan Pulse Oximetry (%) 96 Oxygen Delivery Method Room Air Intake Visit Reasons: Annual Exam Intake Note: Patient is here today for a physical. Learning And Development Assistant Required: No Information Interpreted: non-clinical & clinical Retail Zone Specialist: Not Required per policy Accompanied by: Self / Same As Patient Allergies No Known Allergies Allergy (Verified 03/23/25 09:38) Medication List - Last Reconciled 03/23/25 by Kevin Orozco PA-C acetaminophen ER 650 mg PO Q12H 30 days amlodipine-benazepril 10-40 mg 1 cap PO DAILY atorvastatin (Lipitor) 80 mg PO DAILY 90 days calcium carbonate 500 mg PO DAILY carvedilol (Coreg) 6.25 mg PO BID cholecalciferol (vitamin D3) (Vitamin D3) 25 mcg PO DAILY cyclobenzaprine 10 mg PO BEDTIME 90 days diclofenac sodium 1% 4 grams topical TID 1 month Held on 01/13/24. Instructions: Doctor's Order donepezil 5 mg PO DAILY ezetimibe 10 mg PO DAILY finasteride 5 mg PO DAILY 90 days hydrochlorothiazide 25 mg PO DAILY ketorolac 10 mg PO QID PRN lidocaine 5% 1 appl topical BEDTIME 30 days magnesium oxide 400 mg PO DAILY methocarbamol 1,500 mg (2 x 750 mg) PO Q8H PRN miscellaneous medical supply 1 ea miscellaneous .nightly 99 days multivitamin 1 tab PO DAILY spironolactone 25 mg PO DAILY triamcinolone acetonide 0.5% 1 appl topical DAILY 15 days zolpidem 10 mg PO BEDTIME PRN 20 days Tobacco use date assessed: 03/23/25 Fall risk assessment: No Falls in past year Last assessed Fall Risk: 03/23/25 Dental Screening Dental Screen Date: 08/18/24 HPI Annual Exam HPI Details Patient is a 64-year-old male here today for ANNUAL PHYSICAL ??? Patient has a past medical history significant for morbid obesity, hypertension, left ventricular hypertrophy, right subclavian artery stenosis, PABLO, high cholesterol. Insomnia: he reports he continues to have issues with insomnia. Has used zolpidem 10 mg on as needed basis which has been effective . He has stopped using melatonin . Arterial disease: He admits to not using Lipitor every day, does use Zetia 10 mg every day. Most recent lipid panel shows improvement in his LDL and total cholesterol Patient followed by [facility]. Recent CTA chest showing left circumflex artery with 70% stenosis (. Most recent LDL of 101. Has been unable to tolerate statin therapy due to myalgias. Has followed up with his optometrist assistant whom recommended starting Repatha though the patient was not interested in injections. He more recently started Zetia 10 mg. Patient's most recent lipid panel showing suboptimally controlled LDL. .. HTN:? Patient's blood pressure today acceptable, will continue his current dose of antihypertensive medication. .. Elevated PSA. Most recent PSA much improved, he has been started on finasteride . He denies any urinary symptoms such as nocturia or weak urinary stream. He is willing to start finasteride to help reduce size of prostate. .. Lumbar disc disease: Patient interested in seeing [facility] for pain reduction modality. ? .. PABLO:? Continues to follow pulmonology .? It seems he needs a repeat home sleep study to evaluate the further need for CPAP machine at night. .. Class 2 obesity: Unfortunately has gained weight since last office visit. He does admit to some dietary indiscretion. He will try to work on being more physically active and adapt to better eating habits to reduce his weight Colonoscopy: Colonoscopy done in 2018 - normal repeat 10 years Vaccine: UTD with COVID vaccine, up-to-date with shingles vaccine, TDap , PVC ,Needs FLu vaccine Laboratory Tests 12/22/24 03/22/25 07:18 10:06 RBC 4.32 L Hgb 12.6 L Creatinine 0.79 Cholesterol 218 H 182 LDL Cholesterol, C alc 141 H 108 H PSA Screen 5.95 H 1.23 25-OH Vitamin D To ed 23.2 L PFSH Medical History Left atrial dilation COVID-19 vaccine series completed Cardiomegaly Binge-eating disorder, in full remission, moderate DJD (degenerative joint disease) GERD (gastroesophageal reflux disease) Sleep apnea with use of continuous positive airway pressure (CPAP) Morbid obesity Subclavian artery stenosis, right High cholesterol Shoulder pain, left Cholecystectomy planned Surgical History S/P laparoscopic sleeve gastrectomy Hx of colonoscopy History of umbilical hernia repair History of cholecystectomy Hx of cardiac cath Family History Father H/O ETOH abuse Hypertension Alzheimers disease Substance use disorder Mental health disorder Mother Medical history unknown Brother Hypertension Diabetes Social History Housing: Apartment Are you a primary care trainer to a significant other at home: No Do you presently have visiting nurse or other home services: No Alcohol intake: never Patient Tobacco Use Status: Former Tobacco user e-Cigarette/Vaping Use: Never Used Second Hand Smoke Exposure: Yes service: No Current occupational status: retired Current occupational exposures/hazards: No Cognitive needs: No Hearing needs: No Vision needs: Yes Questionnaire Thrive Questionnaire Date Thrive assessed: 08/18/24 I am a: Patient What is your living situation today?: I have a steady place to live Within the past 12 months, did the food you bought not last and you didn't have the money to get more?: Often true Within the past 12 months, did you worry whether your food would run out before you got money to buy more?: Sometimes True Do you have trouble paying for medicines?: No Do you have trouble getting transportation to medical appointments?: No Do you have trouble paying your heating and electricity bill?: No Do you have trouble taking care of your child, family member or friend?: No Do you have trouble with day-to-day activities such as bathing, preparing meals, shopping, managing finances, etc.?: No Are you currently unemployed and looking for a job?: No Are you interested in more education?: No Please select the resources that you would like help with: None Currently or been in a relationship where the following occur: No concerns reported THRIVE Score: 2 FREDA-7 AMB Questionnaire FREDA-7 Date FREDA - 7 assessed: 08/18/24 Source: Developed by Drs. Michele Ding, Rianna Ceja, Dario Haddad and colleagues, with an educational mir from [employer]. Review of Systems Const Denies body aches, Denies chills, Denies excessive sweating, Denies fatigue, Denies fever(s) and Denies headache(s) Eyes Denies blurry vision ENT Denies dysphagia, Denies vertigo, Denies dizziness, Denies headache(s), Denies hearing loss and Denies tinnitus Card Denies chest pain, Denies chest pain with activity, Denies syncope, Denies irregular heart rhythm and Denies dyspnea Resp Denies chest congestion, Denies cough, Denies hemoptysis, Denies dyspnea and Denies wheezing GI Denies abdominal pain, Denies melena, Denies hematochezia, Denies coffee ground emesis, Denies dysphagia, Denies diarrhea, Denies nausea and Denies vomiting Denies difficulty urinating, Denies dysuria, Denies urinary frequency, Denies urinary hesitancy and Denies urinary urgency Musc Denies arthralgias, Denies limited range of motion, Denies muscle cramps and Denies muscle weakness Skin/Breast Denies rash and Denies skin ulcer Neuro Denies Abnormal speech present, Denies confusion, Denies vertigo, Denies dizziness, Denies syncope, Denies headache(s), Denies memory loss and Denies seizure-like activity Psych Denies anxiety, Denies confusion, Denies depression, Denies memory loss, Denies panic attacks and Denies paranoia Endo Denies excessive sweating, Denies fatigue, Denies flushing, Denies polydipsia and Denies polyuria Aller/Immun Denies wheezing Physical exam (Primary Care) Vital Signs: Last Vital Signs Temp 97.1 F 03/23/25 09:20 Pulse 81 03/23/25 09:20 BP 138/60 03/23/25 09:20 Pulse Ox 96 03/23/25 09:20 Oxygen Delivery Method Room Air 03/23/25 09:20 BMI result Body Mass Index 38.8 BMI Assessment/Plan discussion: High BMI High, discussed plan: lifestyle, weight reduction, dietary and physical activity Tobacco/Smoking Status: Tobacco use Status Tobacco use date assessed 03/23/25 03/23/25 09:25 Patient Tobacco Use Status Former Tobacco user 03/23/25 09:25 Tobacco use type 10/23/23 15:56 e-Cigarette/Vaping Use Never Used 03/23/25 09:25 Thrive Assessment: Date of Thrive Assessment Date Thrive assessed 08/18/24 03/23/25 09:25 Currently or been in a relationship where the following occur: No concerns reported Const Other: OBESE General: cooperative, comfortable, no acute distress, alert and awake; No confusion Orientation/consciousness: oriented to person, oriented to place, patient oriented x3 and No confusion HENMT Head: Yes normocephalic Ears: external ears normal and TM's normal bilaterally Face and sinus: No sinus tenderness Mouth: Normal oral and palatal mucosa present and tongue normal Teeth and gingiva: dentition normal and gingiva normal Throat: Yes posterior oropharynx normal, Yes tonsils normal and Yes uvula midline Eyes Conjunctivae: conjunctivae normal Sclerae: sclerae normal Pupils: Equal, round and reactive pupils present EOM: EOMs intact bilaterally Direct Ophthalmoscopy: No no photophobia Neck Neck: Yes no lymphadenopathy, No tender and Yes no JVD Thyroid: Thyroid normal Carotids: no bruits Chest Chest palpation & inspection: no tenderness Resp Effort & Inspection: normal respiratory effort, no audible wheezes, not labored and no stridor Auscultation: no crackles, no rales, no rhonchi and no wheezes Cardio Jugular venous distension: no JVD Rate: regular rate, not bradycardic and not tachycardic Rhythm: regular rhythm Bruits: no carotid bruits Peripheral pulses: Peripheral pulses 2+ throughout GI Inspection: Yes normal to inspection, No abdominal wall ecchymosis and No visible herniation Palpation (GI): Soft to palpation, nontender, no guarding, not rigid and No hepatosplenomegaly present Auscultation: normoactive bowel sounds General: Yes no CVA tenderness Back/Spine/Pelvis Back: no CVA tenderness and No back tenderness Cervical Spine: cervical ROM normal Thoracic/Lumbar Spine: thoracic and lumbar spine normal to inspection, straight leg raise negative bilaterally, No thoraco-lumbar ROM limited and No lumbar spinal tenderness Skin Lesions: no lesions Rashes: no rashes Wounds: no wounds Neuro General: oriented to person, oriented to place, patient oriented x3, CN's II-XI intact bilaterally and No confusion Cranial nerves: Yes Equal, round and reactive pupils present and Yes Normal accommodation reflex present Cognition (Neuro): normal cognition Speech: No Abnormal speech present Gait exam (Neuro): Normal gait present Motor exam (neuro): 5/5 motor strength present throughout Extrem Right upper extremity: full ROM; no cyanosis Left upper extremity: full ROM; no cyanosis Right lower extremity: no edema Left lower extremity: no edema Psych Appearance: grossly normal Mental Status: mental status grossly normal Affect: normal affect Attitude: cooperative Thought process: Normal thought process present Office Procedures Flu Questionnaire Does the patient have a severe egg allergy?: No Does the patient have severe life threatening allergies?: No Does the patient have a fever or illness today?: No Has the patient ever had Guillain-[place] Syndrome?: No Has the patient ever had any past reaction to a flu shot?: No Immunizations Fluarix [id number] (PF) 45 mcg (15 mcg x 3)/0.5 mL IM syringe Performing Provider: Kevin Orozco PA-C [facility] Administered by: SADA Reynolds on 03/23/25 10:07 Dose Route Admin Location Dispensed Lot Number Expiration Date [facility] Mash Processing Operator 0.5 mL IM Left Deltoid 0.5 mL [id number] 10/19/25 [id number] VIS Given Date VIS Provided VIS Publication Date 03/23/25 Single Vaccine 24 Eligibility Eligibility Date Funding Source Not [facility] Eligible 03/23/25 Private Coding Level of Care Code Est Pt Prev Care 40-64y(89841) Diagnoses Annual physical exam Z00.00 Elevated PSA R97.20 Coronary artery disease of [place] artery of [place] heart with stable angina pectoris I25.118 Associated angina: with stable angina Coronary Disease-Associated Artery/Lesion type: [place] artery [place] vs. transplanted heart: [place] heart Essential (primary) hypertension I10 PABLO (obstructive sleep apnea) G47.33 Class 2 obesity E66.812 Vitamin D deficiency E55.9 Assessment & Plan Assessment & Plan (1) Annual physical exam: Code(s): Z00.00 - Encounter for general adult medical examination without abnormal findings Category: Medical Plan: As per HPI (2) Elevated PSA: Code(s): R97.20 - Elevated prostate specific antigen [PSA] Category: Medical Plan: PSA much improved with the addition of finasteride, will continue finasteride at this time. He reports no further urinary symptoms (3) CAD (coronary artery disease): Code(s): I25.10 - Atherosclerotic heart disease of [place] coronary artery without angina pectoris Category: Medical Qualifiers: Associated angina: with stable angina Coronary Disease-Associated Artery/Lesion type: [place] artery [place] vs. transplanted heart: [place] heart Qualified Code(s): I25.118 - Atherosclerotic heart disease of [place] coronary artery with other forms of angina pectoris Plan: Patient continues to follow cardiology. Has not been consistent with the use of his cholesterol medication due to side effect. Explain the cardiovascular risk that he does have and patient does agree and understand to restart cholesterol medication.. I emphasized the importance of taking the statin medication to prevent arterial clogging, despite the patient's concerns regarding cramps, and recommended continuing the ezetimibe. We discussed dietary modifications, such as reducing the intake of cheese and egg yolks, to help manage cholesterol. Goal LDL is to optimally be below 70. (4) Essential (primary) hypertension: Code(s): I10 - Essential (primary) hypertension Category: Medical Plan: Patient's blood pressure acceptable today in office. Patient continues on multiple antihypertensive medications. Will continue current dose of antihypertensive medication with goal blood pressure to be below 140/90 (5) PABLO (obstructive sleep apnea): Comment: This gentleman does have history of obstructive sleep apnea. Post sleeve gastrectomy, he has lost significant amount of weight. At present he is asymptomatic, and sleeps well. Plan : Do a home sleep study , to evaluate for any residual sleep apnea. In the meantime he is encouraged to continue losing weight. Sleep hygiene discussed. Advise that he should always sleep in lateral position, Will recheck him after the sleep study is done. Code(s): G47.33 - Obstructive sleep apnea (adult) (pediatric) Category: Medical Plan: Patient does use CPAP machine on a nightly basis with good effect. (6) Class 2 obesity: Code(s): E66.812 - Obesity, class 2 Category: Medical Plan: Patient does understand his BMI is over 35, unfortunately has gained weight since last office visit. He does admit to some dietary indiscretion and a pretty sedentary lifestyle. He will work on being more physically active and adapting to better eating habits to reduce his weight (7) Vitamin D deficiency: Code(s): E55.9 - Vitamin D deficiency, unspecified Category: Medical Plan: Will recheck vitamin-D Orders: Orders Prostate Specific Antigen Scr 03/23/25 R97.20 - Elevated prostate specific antigen [PSA], Z12.5 - Encounter for screening for malignant neoplasm of prostate Comprehensive [place]. Panel Fast 03/23/25 I25.118 - Atherosclerotic heart disease of [place] coronary artery with other forms of angina pectoris Complete Blood Count no Diff 03/23/25 I25.118 - Atherosclerotic heart disease of [place] coronary artery with other forms of angina pectoris Influenza [id number] Immunization 03/23/25 Z23 - Encounter for immunization Lipid Panel 03/23/25 I25.118 - Atherosclerotic heart disease of [place] coronary artery with other forms of angina pectoris
[2025-03-23 09:20] VITALS: BP 138/60; PULSE 81; TEMP 36.2; O2SAT 96; BMI 38.8
--- OUTSIDE RECORDS SUMMARY | 2025-03-23 09:28 | XMS_ITS | Clinical Summary ---
Author Organization [employer] Address [address] [place] [address] Care Team Providers Care Support Architect Name Role Phone Unavailable Primary Care Provider [...] Problems Problem Noted Date Diagnosed Date Dementia ([facility]/HCC) 03/28/2022 Immunizations Immunization Administration Dates Next [...] Most Recently Relevant to Health Maintenance Insurance [facility] MEDICAID STAND ADULT [facility] LIMITED HSN FULL AETNA MEDICARE REPLACEMENT [facility] STANDARD DENTAL-[facility] MEDICAID STAND ADULT
--- OUTSIDE RECORDS SUMMARY | 2025-03-23 09:28 | XMS_ITS | Encounter Summary ---
Author Organization [employer] Address [address] [place] [address] Care Team Providers Care Deputy City Clerk Name Role Phone Unavailable Primary Care Provider Unavailabl e Encounter Details Date Type Department Care Team (Latest Contact Info) Description 06/30/2020 Abstract [facility] CONVERSIONS Dental, Provider, DDS Social [...]
== END 2025-03-23 10:10 | disposition home or self-care (01) ==
LOC: HO.HMCH 09:05
PROVIDERS: PCP Physician Assistant; Visit Provider Physician Assistant
DX: Z23 Encounter for immunization (principal)

== ENCOUNTER → 2025-03-23 09:04 | Outpatient (BNVA) | payer MEDICARE, SELFPAY | PROVIDERS: PCP Physician Assistant; Visit Provider Physician Assistant | DX: Z00.00 Encounter for general adult medical examination without abnormal findings (principal); I25.118 Atherosclerotic heart disease of native coronary artery with other forms of angina pectoris; I10 Essential (primary) hypertension; G47.33 Obstructive sleep apnea (adult) (pediatric); E66.812 Obesity, class 2; E55.9 Vitamin D deficiency, unspecified; R97.20 Elevated prostate specific antigen [PSA]; Z23 Encounter for immunization | CPT/HCPCS: 90471; 90656; 99396 ==